=== PATIENT | female | born 1950 | race Caucasian/White ===

== ENCOUNTER → 2021-01-18 06:54 | Outpatient (CLI) | payer MEDICARE, BC, SELFPAY | PROVIDERS: PCP Family Medicine; Referring Provider Internal Medicine Critical Care Medicine; Visit Provider Internal Medicine Critical Care Medicine | DX: R91.1 Solitary pulmonary nodule (principal) ==

== ENCOUNTER → 2021-01-19 08:11 | Outpatient (CLI) | payer MEDICARE, BC, SELFPAY ==
--- NOTE | 2021-01-19 08:13 | US_ITS ---
STUDY: THYROID ULTRASOUND REASON FOR EXAM: Female, 70 years old. NODULE TECHNIQUE: Ultrasound evaluation of the thyroid was performed with real-time and static moulton-scale imaging. COMPARISON: None. FINDINGS: RIGHT LOBE: The right lobe of the thyroid gland is enlarged and measures 5.4 cm x 2 cm x 1.3 cm. There is a heterogeneous echotexture. There are multiple hypoechoic and isoechoic solid nodules throughout the right lobe. The largest measures 1.8 cm x 1.5cm x 1.1 cm. This is in the mid pole. Biopsy is recommended. LEFT LOBE: The left lobe of the thyroid gland is enlarged and measures 5 cm x 2 cm x 1.2 cm. There is a heterogeneous echotexture. There are multiple solid and heterogeneous nodules within the left lobe. The largest measures 6 mm x 4 mm x 9 mm. This is in the mid medial aspect of the left lobe. ISTHMUS: The isthmus measures 3 mm. The regional lymph nodes are normal. US/Thyroid IMPRESSION: Enlargement of both lobes of the thyroid gland. Multiple nodules are seen in both lobes. A dominant nodule measuring 1.8 cm x 1.5 cm x 1.1 cm is seen in the right lobe. Biopsy is recommended. Electronically Signed: Robert Garber MD at 13:06 EDT , Service support ,
== END ==
DX: E04.1 Nontoxic single thyroid nodule (principal)
CPT/HCPCS: 76536

== ENCOUNTER → 2021-02-05 | Outpatient (CLI) | payer MEDICARE, BC, SELFPAY ==
--- NOTE | 2021-02-05 | FLU_PTH ---
PATIENT: HARLEY TRAORE LOC: [facility] U#:[id number] AGE/SX: 70/F ROOM: RE02/05/[address]: Dr. Juan Santoyo MD : 1950 BED: DIS: 02/05/2021 SPEC #: [id number] RECD: 02/05/21 12:29 STATUS: CECILE LU #: [id number] VILMA: 02/05/21 00:[address]: Juan Santoyo DEPT: CYTOLOGY RECD BY: Raj Alejandra ENTERED: 02/05/21 12:29 SP TYPE: Fluid OTHR DR: KEYLA Keene Tissues: A - Thyroid gland, NOS B - Thyroid gland, NOS Procedures: Special Stain Group II Surgery Specimen Level IV Cytospin Fluid HEADER OPERATION: Right thyroid fine needle aspiration PRE-OP DIAGNOSIS: Right thyroid nodule TISSUE SUBMITTED: A ? Right thyroid nodule fluid, B ? Right thyroid nodule x6 slides DIAGNOSIS CYTOLOGY A. Right thyroid nodule fluid, FNA (cytospin and cell block): Consistent with benign follicular nodule with cystic changes. B. Right thyroid nodule, FNA (smears): Consistent with benign follicular/colloid nodule. Adequate for evaluation. See comment. SHOBHA:eva 02/08/2021 COMMENT Correlation with clinical, radiologic findings and appropriate follow up are necessary. CYTOLOGY STUDY Slides are reviewed. CYTOLOGY GROSS A - Received is 1 ml of red bloody cloudy fluid labeled with the patient's name and and designated per the requisition as right thyroid nodule. Submitted for cytology preparation including cell block. B - Received are six smears labeled with the patient's name and designated per the requisition as right thyroid nodule. Submitted for staining. / eva 02/05/2021 TC:3 CPT: 41200, 25039, 78797
== END | disposition home or self-care (01) ==
LOC: LABSPEC 11:18
PROVIDERS: PCP Physician Assistant; Visit Provider Surgery
DX: E04.1 Nontoxic single thyroid nodule (principal)
CPT/HCPCS: 88108; 88305; 88313

== ENCOUNTER → 2021-02-24 09:32 | Outpatient (CLI) | payer MEDICARE, BC, SELFPAY ==
--- NOTE | 2021-02-25 13:10 | PFT ---
INTRODUCTION: The patient is a 70-year-old female that presents for pulmonary function studies secondary to a diagnosis of dyspnea. Respiratory therapy reported good patient effort. Bronchodilators were used during testing. INTERPRETATION: Forced expiration spirometry demonstrates the presence of a moderate large airways obstructive ventilatory defect. There was no significant response to aerosolized bronchodilators. Spirograms are of good quality but do not plateau indicating slow emptying of the lungs. Body plethysmography was performed and reveals lung volumes to be within normal limits. Diffusing capacity by single breath CO is also within normal limits. IMPRESSION: Irreversible moderate large airways obstructive ventilatory defect with preserved lung volumes and diffusing capacity.
== END ==
PROVIDERS: PCP Physician Assistant; Referring Provider Internal Medicine Critical Care Medicine; Visit Provider Internal Medicine Critical Care Medicine
DX: R06.00 Dyspnea, unspecified (principal)
CPT/HCPCS: 94060; 94726; 94729

== ENCOUNTER → 2021-02-25 12:38 | Outpatient (CLI) | payer MEDICARE, BC, SELFPAY ==
[2021-02-25 12:45] VITALS: PULSE 63; PULSE 74; PULSE 79; PULSE 84; PULSE 85; PULSE 87; PULSE 88; O2SAT 97; O2SAT 98; O2SAT 99
--- NOTE | 2021-02-26 10:13 | PCM.PSN.6M ---
PSN 6 Minute Walk Test 6 Minute Walk Test 6 Minute Walk Test: 6 Minute Walk Test PSN:6-Minute Walk Test Start: 02/25/21 13:08 Freq: Status: Active Protocol: RESP.6MINW Document 02/25/21 12:45 DAVID (Rec: 02/25/21 13:12 JLA [id number]) 6 Minute Walk Test Date Performed 02/25/21 Time Performed 12:45 Height 5 ft 7 in Weight: 60.328 kg Weight in Pounds 133.[address]: Eran Da Silva Assistive device used: None Pre-test Oxygen Delivery Method Room Air Pulse Ox (%) 97 Pulse Rate (60-100 beats/min) 63 Dyspnea Ellen Scale (0-10) 0 Exertion Ellen Scale (6-20) 6 1st minute Oxygen Delivery Method Room Air Pulse Ox (%) 98 Pulse Rate (60-100 beats/min) 79 2nd minute Oxygen Delivery Method Room Air Pulse Ox (%) 97 Pulse Rate (60-100 beats/min) 87 3rd minute Oxygen Delivery Method Room Air Pulse Ox (%) 97 Pulse Rate (60-100 beats/min) 85 4th minute Oxygen Delivery Method Room Air Pulse Ox (%) 98 Pulse Rate (60-100 beats/min) 84 5th minute Oxygen Delivery Method Room Air Pulse Ox (%) 98 Pulse Rate (60-100 beats/min) 88 6th minute Oxygen Delivery Method Room Air Pulse Ox (%) 99 Pulse Rate (60-100 beats/min) 88 Dyspnea Ellen Scale (0-10) 0.5 Exertion Ellen Scale (6-20) 11 Post-test Oxygen Delivery Method Room Air Pulse Ox (%) 97 Pulse Rate (60-100 beats/min) 74 Full Laps Walked 24 Partial Lap, Number of Tiles Walked 10 Total Distance Walked (ft) 1426 Interpretation Interpretation: The patient ambulated 1426 feet over the course of 6 minutes beginning on room air without assistive devices. Pretesting oxygen saturation was noted to be 97% on room air. With ambulation, the jayy oxygen saturation was 97%. There was no significant exertional oxygen desaturation. Recommendations Recommendations: There is no indication for the use of supplemental oxygen at this time.
== END ==
PROVIDERS: PCP Physician Assistant; Referring Provider Internal Medicine Critical Care Medicine; Visit Provider Internal Medicine Critical Care Medicine
DX: R06.00 Dyspnea, unspecified (principal)
CPT/HCPCS: 94618

== ENCOUNTER 2021-04-19 07:01 | Outpatient (CLI) | payer MEDICARE, BC, SELFPAY ==
--- NOTE | 2021-04-19 07:08 | CT_ITS ---
STUDY: CT CHEST WITHOUT CONTRAST REASON FOR EXAM: Female, 70 years old. Follow up 6x7mm right apex nodule - 3 mo RADIATION DOSAGE (If Supplied By Facility): CTDIvol = ( 6.63 ) mGy, DLP = ( 233.70 ) mGycm TECHNIQUE: Transaxial imaging was performed without the administration of intravenous contrast material. Multiplanar coronal and sagittal images were reformatted. Individualized dose optimization techniques were used for this CT. COMPARISON: None. FINDINGS: Hyperinflation. Mild degree of emphysematous changes more prominent in the upper lobes. Stable 7 mm nodule in the peripheral posterior lateral aspect of the right lung apex. This most likely represents a focal area of scarring. A 6 month follow-up examination is recommended. There is no demonstrated pleural abnormality. There are calcifications of the coronary arteries. There are multiple small lymph nodes within the mediastinum, which are normal in size and morphology most compatible with reactive lymph hyperplasia. Normal hilar regions. Normal unenhanced pulmonary arteries. Normal aorta arch and descending thoracic aorta. There are multi-level degenerative changes of the thoracic spine. There is no demonstrated abnormality of the visualized upper abdomen. CT/Chest without Contrast IMPRESSION: Stable 7 mm nodule in the peripheral posterior lateral aspect of the right lung apex. A six-month follow-up examination is recommended. Electronically Signed: Robert Garber MD at 10:18 EST , Service support ,
== END 2021-04-19 23:59 | disposition short-term general hospital (02) ==
LOC: CT 07:04
PROVIDERS: PCP Physician Assistant; Referring Provider Internal Medicine Critical Care Medicine; Visit Provider Internal Medicine Critical Care Medicine
DX: R91.1 Solitary pulmonary nodule (principal)
CPT/HCPCS: 71250

== ENCOUNTER 2021-06-07 14:38 | Outpatient (CLI) | payer MEDICARE, BC, SELFPAY ==
[2021-06-07 15:45] LABS: Absolute Lymphocyte Count 2.12 X10^3/uL (0.83-4.51); Absolute Neutrophil Count 3.9 X10^3/uL (2.0-7.7); Basophil# 0.05 X10^3/uL; Basophil% 0.8 % (0-1); Eosinophil# 0.06 X10^3/uL; Eosinophils% 0.9 % (0-5); Hematocrit 44.9 % (37-47); Hemoglobin 14.4 g/dL (12.0-15.0); Lymphocyte # 2.12 X10^3/ul (0.83-4.51); Lymphocyte % 32.8 % (19-41); Mean Corp Hgb Conc 32.1 g/dL (32-36); Mean Corpuscular Hgb 29.7 pg (27.0-32.0); Mean Corpuscular Volume 92.6 fL (81-99); Monocyte# 0.28 X10^3/uL; Monocyte% 4.3 % (0-10); NRBC Flagged by Analyzer 0 % (0-5); Neutrophil # 3.93 X10^3/uL (2.7-7.7); Neutrophil % 60.9 % (47-70); Platelet Count 196 K/mm3 (150-450); RBC Distribution Width CV 13.7 % (11.6-14.6); RBC Distribution Width SD 46.6 fl (35.1-43.9); Red Blood Count 4.85 M/mm3 (4.2-5.4); White Blood Count 6.5 K/mm3 (4.4-11.0)
[2021-06-07 16:46] LABS: Vitamin D,25 Hydroxy 49.6 ng/mL
[2021-06-07 16:57] LABS: ALB/GLOB Ratio 1.1 RATIO (0.9-2.4); AST(SGOT) 12 U/L (15-37); Alanine Aminotransfer ALT/SGPT 13 U/L (13-56); Albumin, Serum 3.9 g/dL (3.2-5.0); Alkaline Phosphatase 57 U/L (45-117); Anion Gap 4 (5-15); BUN 10 mg/dL (7-18); BUN/Creat Ratio 12.4 RATIO (10-20); Calcium,Total 8.9 mg/dL (8.5-10.1); Chloride 108 mmol/L (98-107); Cholesterol 194 mg/dL (200); Creatinine, Serum 0.81 mg/dL (0.55-1.02); EST Glomerular Filtration Rate 74 mL/min (>60); Est Glom Filt Rate - Afr Amer 90 mL/min (>60); Globulin 3.5 g/dL (2.2-4.2); Glucose 95 mg/dL (74-106); High Density Lipoprotein 65 mg/dL; Potassium 3.8 mmol/L (3.5-5.1); Protein, Total 7.4 g/dL (6.4-8.2); Sodium Level 141 mmol/L (136-145); Triglycerides 126 mg/dL; Very Low Density Lipoprotein 25 mg/dL (5-40)
== END 2021-06-07 23:59 | disposition home or self-care (01) ==
LOC: BIMLAB 14:39
PROVIDERS: PCP Internal Medicine; Referring Provider Internal Medicine; Visit Provider Internal Medicine
DX: E78.5 Hyperlipidemia, unspecified (principal); M81.0 Age-related osteoporosis without current pathological fracture
CPT/HCPCS: 36415; 80053; 80061; 82306; 85025

== ENCOUNTER 2021-06-22 10:20 | Outpatient (CLI) | payer MEDICARE, BC, SELFPAY ==
--- NOTE | 2021-06-22 10:22 | BI_ITS ---
MAMMOGRAPHY - BILATERAL SCREENING REASON FOR EXAM: Female, 70 years old. Routine annual screening examination. PERTINENT HISTORY: Non-contributory. TECHNIQUE: Digital bilateral breast pamela (3D mammographic acquisition) in the CC and MLO projections. 2-D mediolateral oblique (MLO) and craniocaudad (CC) views of both breasts were obtained. CAD: Full Field Digital Mammography with Computer Added Detection was performed. COMPARISON: None. Baseline examination. FINDINGS: Breast Composition: There are scattered areas of fibroglandular density. There is a 4.7 mm x 6 mm nodule in the deep central slightly lateral aspect of the right breast. Correlation with ultrasound is recommended. No other significant abnormalities are identified. BI/SCRN MAMM (CAD)W/PAMELA BILAT IMPRESSION: 4.7 mm x 6 mm well-defined nodule in the deep central slightly lateral aspect of the left breast. Correlation with ultrasound is recommended. ASSESSMENT CATEGORY: BIRADS Category 0: Incomplete. Need additional imaging evaluation. A letter regarding these results will be sent to the patient by the facility within 30 days. Approximately 10% of breast cancers are not detected by mammography. A normal mammogram should not delay biopsy of a clinically suspicious abnormality. [id number] Electronically Signed: Robert Garber MD at 11:31 EDT ,
--- NOTE | 2021-06-22 10:27 | BD_ITS ---
STUDY: DUAL ENERGY X-RAY ABSORPTIOMETRY / DXA REASON FOR EXAM: Female, 70 years old. Osteoporosis TECHNIQUE: Bone Mineral Density (BMD) measurements of lumbar spine and bilateral hips were obtained. COMPARISON: None. FINDINGS: Lumbar Spine (L1-L4): g/cm2 (0.766) / T-score (-2.6) / Z-score (-0.3) Findings are suggestive of osteoporosis with a high fracture risk. Left Femur Total: g/cm2 (0.630) / T-score (-2.6) / Z-score (-0.9) Left Femoral Neck: g/cm2 (0.461) / T-score (-3.5) / Z-score (-1.5) Right Femur Total: g/cm2 (0.614) / T-score (-2.7) / Z-score (-1.0) Right Femoral Neck: g/cm2 (0.499) / T-score (-3.2) / Z-score (-1.2) BD/Dexa Bone Density Study IMPRESSION: The patient is considered osteoporotic as outlined below according to World Sridhar Organization (WHO) criteria with a high fracture risk. Reference Information: The T-score is the number of standard deviations above or below the standard which is normal for young adults at their peak bone mineral density. The World Health Organization (WHO) interprets the T-scores as follows: Above -1 Normal bone density Between -1 and -2.5 Osteopenia Equal to / or below -2.5 Osteoporosis As a practical clinical guideline, osteopenia may be graded as follows: Mild -1 through -1.5 Moderate -1.6 through -2.0 Severe -2.1 through -2.4 The Z-score is the number of standard deviations above or below age-matched controls. A Z-score of less than -1.5 would be considered abnormal. References: 1. NIH Osteoporosis and Related Bone Diseases www osteo.org 2. International Society for Clinical Densitometry www iscd.org 3. National Osteoporosis Foundation www nof.org Electronically Signed: Robert Garber MD at 8:44 EDT ,
== END 2021-06-22 23:59 | disposition home or self-care (01) ==
LOC: OPBD 10:21
PROVIDERS: PCP Internal Medicine; Referring Provider Internal Medicine; Visit Provider Internal Medicine
DX: Z12.31 Encounter for screening mammogram for malignant neoplasm of breast (principal); M81.0 Age-related osteoporosis without current pathological fracture
CPT/HCPCS: 77063; 77067; 77080

== ENCOUNTER 2021-06-23 09:05 | Outpatient (CLI) | payer MEDICARE, BC, SELFPAY ==
--- NOTE | 2021-06-23 09:08 | US_ITS ---
STUDY: ULTRASOUND BREAST - LEFT REASON FOR EXAM: Female, 70 years old. Abnormal screening mammogram. TECHNIQUE: Axial and longitudinal images of the LEFT breast were performed with a high resolution ultrasound transducer. # OF IMAGES: 41 COMPARISON: Comparison is made with prior mammogram dated 06/22/2021. FINDINGS: LEFT Breast: The upper lateral aspect of the left breast was examined with ultrasound. There is evidence of dilated ducts. No mass lesion is seen. Routine mammographic follow-up is recommended. US/Breast Limited Unilateral IMPRESSION: Dilated ducts. Routine annual mammographic follow-up is recommended. ASSESSMENT CATEGORY: BIRADS Category 2: Benign. A letter regarding these results will be sent to the patient by the facility within 30 days. Electronically Signed: Robert Garber MD at 9:42 EDT ,
== END 2021-06-23 23:59 | disposition home or self-care (01) ==
LOC: OPUS 09:06
PROVIDERS: PCP Internal Medicine; Visit Provider Internal Medicine
DX: N63.10 Unspecified lump in the right breast, unspecified quadrant (principal); R92.8 Other abnormal and inconclusive findings on diagnostic imaging of breast
CPT/HCPCS: 76642

== ENCOUNTER → 2021-09-24 | Outpatient (CLI) | payer MEDICARE, BC, SELFPAY ==
--- NOTE | 2021-09-24 07:54 | CT_ITS ---
STUDY: CT CHEST WITHOUT CONTRAST REASON FOR EXAM: Female, 71 years old. Follow 7 mm nodule in smoker RADIATION DOSAGE (If Supplied By Facility): CTDIvol = ( 7.75 ) mGy, DLP = ( 294.49 ) mGycm TECHNIQUE: Transaxial imaging was performed without the administration of intravenous contrast material. Multiplanar coronal and sagittal images were reformatted. Individualized dose optimization techniques were used for this CT. COMPARISON: Comparison is made with prior examination dated 04/19/2021. FINDINGS: CHEST Heterogeneous appearance of the lower pole of the right lobe of the thyroid gland suggestive of a colloid cyst. Hyperinflation. Mild degree of emphysematous changes more prominent in the upper lobes. Stable 7 mm nodule in the peripheral posterolateral aspect of the right lung apex as seen on axial image #14. This most likely represents a focal area of scarring. There is no demonstrated pleural abnormality. There are calcifications of the coronary arteries. There are multiple small lymph nodes within the mediastinum, which are normal in size and morphology most compatible with reactive lymph hyperplasia. Normal hilar regions. Normal unenhanced pulmonary arteries. There is atherosclerotic calcification of the aortic arch. There are degenerative changes of the thoracic spine. 1.2 cm cyst in the midportion of the right kidney. CT/Chest without Contrast IMPRESSION: Stable examination. Electronically Signed: Robert Garber MD at 12:15 EDT ,
== END | disposition home or self-care (01) ==
LOC: CT 07:54
PROVIDERS: PCP Internal Medicine; Referring Provider Nurse Practitioner Acute Care; Visit Provider Nurse Practitioner Acute Care
DX: I25.10 Atherosclerotic heart disease of native coronary artery without angina pectoris (principal); I70.0 Atherosclerosis of aorta; R91.1 Solitary pulmonary nodule; N28.1 Cyst of kidney, acquired
CPT/HCPCS: 71250

== ENCOUNTER → 2021-10-04 | Outpatient (CLI) | payer MEDICARE, BC, SELFPAY ==
[2021-10-04 12:29] LABS: Anion Gap 6 (5-15); BUN 9 mg/dL (7-18); BUN/Creat Ratio 9.7 RATIO (10-20); Calcium,Total 9.2 mg/dL (8.5-10.1); Chloride 109 mmol/L (98-107); Creatinine, Serum 0.93 mg/dL (0.55-1.02); EST Glomerular Filtration Rate 63 mL/min (>60); Est Glom Filt Rate - Afr Amer 76 mL/min (>60); Glucose 104 mg/dL (74-106); Potassium 4.1 mmol/L (3.5-5.1); Sodium Level 143 mmol/L (136-145)
== END | disposition home or self-care (01) ==
LOC: BIMLAB 11:11
PROVIDERS: PCP Internal Medicine; Referring Provider Internal Medicine; Visit Provider Internal Medicine
DX: M81.0 Age-related osteoporosis without current pathological fracture (principal)
CPT/HCPCS: 36415; 80048

== ENCOUNTER 2022-02-15 08:57 | Day surgery (SDC) | payer MEDICARE, OTHER, BC, SELFPAY ==
[2022-02-15] MEDS: Lactated Ringers 1,000 ML 15 ML IV (09:15)
[2022-02-15 09:30] VITALS: BP 132/75; PULSE 61; RESP 17; TEMP 36.6; O2SAT 97; BMI 20.2
--- NOTE | 2022-02-15 10:24 | PCM.HP.BLA ---
History and Physical Date of Admission: 02/15/22 [facility] [address] [place] [address] OFFICE VISIT Date of Service:? 01/31/22 MR#: [id number] Acct: [id number] Name:HARLEY MERCEDES Rep #: [id number] : 1950 ? ? Provider: Dr. Enio Dickson, DO Age/Sex:? 71/F ? ? Location: [facility] [place] Status: Signed Intake Intake Visit Reasons:?Right hand Is patient in pain?: Yes Allergies No Known Allergies Allergy (Verified 01/31/22 09:30) Medications ascorbic acid (vitamin C) 500 mg tablet,extended release 500 mg PO DAILY 06/07/21 [History Confirmed 01/31/22] cholecalciferol (vitamin D3) 125 mcg (5,000 unit) capsule 125 mcg PO DAILY 06/07/21 [History Confirmed 01/31/22] nicotine 14 mg/24 hr daily transdermal patch 1 patch transdermal Q24H #28 ea 06/07/21 [Rx Confirmed 01/31/22] pravastatin 20 mg tablet 20 mg PO QHS #90 tabs 06/07/21 [Rx Confirmed 01/31/22] zinc acetate 50 mg (zinc) capsule (Galzin) 50 mg PO DAILY 06/07/21 [History Confirmed 01/31/22] denosumab 60 mg/mL subcutaneous syringe (Prolia) 60 mg subcut [id number] #1 mL 10/04/21 [Rx Confirmed 01/31/22] PFSH Medical History?(Updated 11/17/21 @ 09:[address] Eran Da Silva MD) Abnormal mammogram of left breast Chest pain Colitis GERD (gastroesophageal reflux disease) Hand pain Hyperglycemia Hyperlipidemia Lumbar disc narrowing Midline cystocele Osteopenia Osteoporosis Pulmonary nodule Renal cyst Sacroiliitis Situational depression Tobacco abuse counseling Trigger finger of right hand Surgical History? History of rectal surgery S/P colectomy Family History? Father COPD (chronic obstructive pulmonary disease)Mother Myocardial infarctionSister Cancer ?? ? LungBrother Cancer ?? ? Throat Social History? Smoking Status:? Current every day smoker tobacco type: cigarettes alcohol intake:? never HPI Right hand Details: Parts of this documentation were recorded by a scribe, this documentation accurately reflects the service provided and the decisions made by me, Dr. Enio Dickson, DO 01/31/22 0925. HARLEY TRAORE is a 71 year old F here today for right hand pain. She had a right ring finger trigger injection on 06/16/21 which was helpful until the end of November. She states that she has locking. She complains of an achiness into her entire right ring finger. She complains of soreness into her hand. She has had 2 injections already. Patient denies any numbness or tingling. Ortho Exam General General: Yes no acute distress Neurologic: Yes alert and Yes oriented x3 Psychologic: Yes reasonable and appropriate Right Wrist/Hand WRIST: birthmark on ring finger and area of A1 maryam, hypertrophied ttp A1 maryam, no locking today Coding Level of Care Code Off vis,est,level 3 Diagnoses Trigger finger, right ring finger? M65.341 Assessment and Plan Assessment and Plan (1) Trigger finger, right ring finger: ?Status:?Acute Plan Spoke with the patient about the significant risk of having 3 injections into her finger. Spoke with her about the risk of tendon rupture. Explained that she may have a trigger finger release instead. She will have restrictions post op for 3 weeks. She would like to proceed with surgery on 02/15/22. Patient should not take any NSAIDs 7 days prior to surgery.? Follow up 2 week post op or sooner if pain, swelling, numbness or associated symptoms, or concerns develop.? All questions answered. Patient in agreement of plan. 01/31/22 1000 <Electronically signed by Enio Dickson DO> Date Enio Dickson DO Cosigner Signature: Date (if applicable) ? CC: ? ~ I have examined the patient and the H&P has been reviewed. There are no clinical changes since date of exam.
[2022-02-15] MEDS: Cefazolin 2 GM in 0.9% Normal Saline 100 ML IV (10:27)
[2022-02-15] MEDS: Lidocaine 2% /Epi 1:100 (20ml) 20 ML VIAL (10:49)
[2022-02-15 11:00] VITALS: BP 107/58; BP 132/75; PULSE 68; RESP 16; TEMP 36.6; O2SAT 100
--- NOTE | 2022-02-15 11:00 | PCM.OP.BLANK ---
Operative Report Date of Procedure: 02/15/22 Preoperative diagnosis; right fourth digit trigger finger Postoperative diagnosis; same Procedure: Right fourth digit A1 maryam release Anesthesia: Local with MAC Tourniquet time; 10 minutes 250 mm Hg Complications: None Indication for procedure; This is a 71-year-old female with symptoms consistent with trigger finger. Risks benefits and alternatives were reviewed including risks of bleeding infection nerve tendon tissue damage need for further surgery and continued pain and symptoms, hypersensitivity to scar/incision and recurrence. Procedure; The patient was met in the preoperative holding area the operative extremity was identified by both patient and physician and was marked the patient was met by anesthesia and brought back to the operating room and transferred to the operating table in the supine position. Aanesthesia was started. A well-padded tourniquet was placed on the operative upper extremity. The patient was prepped and draped in the usual sterile fashion. A timeout was called to ensure the proper patient procedure and extremity were being contemplated. 0.5 percent Marcaine was injected into the incisional area. Esmarch was used tourniquet was inflated. 15 blade scalpel was used to make a longitudinal incision directly over the A1 maryam was carried down through the subcutaneous tissue Jeanne retractors placed radial and ulnar protecting the digital nerves and a Ragnell retractor was used at the apex of the incision under direct visualization a deep blade scalpel was used to release the A1 maryam. The wound was thoroughly irrigated and closed with 4-0 nylon vertical mattress edges. Dressing was applied in the form of Xeroform 4 x 4 web roll and an Ramakrishna wrap. Patient tolerated the procedure well was brought back to the PACU in stable condition.
--- NOTE | 2022-02-15 11:02 | DCINST_ITS ---
Discharge Instructions Dressing / Incision Call your doctor if you observe: Shortness of breath and Chest pain Additional Dressing/Incision Instructions:: Ice and elevate operative extremity next 72 hours. Keep dressing on clean and dry for 48 hours then may remove and allow warm soapy water to rinse over incision but do not submerge until sutures are out. Then apply bandaid over incision and change daily. encourage finger range of motion. Not lift more than 1/2 pound. Minimize narcotic use only as needed and directed, may use OTC NSAID and Tylenol to supplement/substitute for pain control. Follow Up Care Please Follow Up With: Enio Dickson DO When: 2 weeks Test Results: Test results from this visit will be discussed in further detail at your follow- up appointment, if applicable. Discharge Plan Admission Primary Reason for Your Visit: Right ring trigger finger Attending Provider: Enio Dickson Primary Care Provider: Emily Hoang Discharge Orders/Prescriptions Prescriptions: New hydrocodone-acetaminophen 5-325 mg tablet 1 tab PO Q4H PRN (Reason: pain) 2 Days Qty: 7 0RF No Action cholecalciferol (vitamin D3) 125 mcg (5,000 unit) capsule 125 mcg PO DAILY Galzin 50 mg (zinc) capsule 50 mg PO MOWEFR pravastatin 20 mg tablet 20 mg PO QHS Qty: 90 3RF Referrals / Follow Up: Emily Hoang MD [Primary Care Provider] - Disposition Disposition (needs filled in before D/C Order can be placed): Home, Self Care
[2022-02-15 11:05] VITALS: BP 107/59; BP 132/75; PULSE 63; RESP 16; O2SAT 100
[2022-02-15 11:10] VITALS: BP 122/58; BP 132/75; PULSE 57; RESP 16; O2SAT 100
[2022-02-15 11:15] VITALS: BP 112/56; BP 132/75; PULSE 56; RESP 16; TEMP 36.3; O2SAT 100
[2022-02-15 12:22] VITALS: BP 119/47; BP 132/75; PULSE 54; RESP 14; TEMP 36.3; O2SAT 99
== END 2022-02-15 12:31 | disposition home or self-care (01) ==
LOC: SDC 08:59 → AC 08:59
PROVIDERS: PCP Internal Medicine; Referring Provider Orthopaedic Surgery; Visit Provider Orthopaedic Surgery
PROC: (CPT 26055; principal; 2022-02-15 10:50)
DX: M65.341 Trigger finger, right ring finger (principal); E78.5 Hyperlipidemia, unspecified; K21.9 Gastro-esophageal reflux disease without esophagitis; F17.210 Nicotine dependence, cigarettes, uncomplicated; Z79.899 Other long term (current) drug therapy
CPT/HCPCS: 26055; J7120

== ENCOUNTER → 2022-10-06 | Outpatient (CLI) | payer MEDICARE, BC, SELFPAY ==
--- NOTE | 2022-10-07 09:17 | PFT ---
INTRODUCTION: The patient is a 72-year-old female who presents for pulmonary function studies secondary to a diagnosis of COPD. Respiratory therapy reported good patient effort. Bronchodilators were used during testing. INTERPRETATION: Forced expiration spirometry demonstrates the presence of a mild large airways obstructive ventilatory defect. There was no significant response to aerosolized bronchodilators. Spirograms are of good quality and plateau gradually indicating slow emptying of the lungs. Body plethysmography was performed and revealed lung volumes to be within normal limits. Diffusing capacity by single breath CO was also within normal limits. IMPRESSION: Irreversible mild large airways obstructive ventilatory defect with preserved lung volumes and diffusing capacity.
== END | disposition home or self-care (01) ==
LOC: PSN 07:36
PROVIDERS: PCP Internal Medicine; Referring Provider Internal Medicine Critical Care Medicine; Visit Provider Internal Medicine Critical Care Medicine
DX: J44.9 Chronic obstructive pulmonary disease, unspecified (principal)
CPT/HCPCS: 94060; 94726; 94729

== ENCOUNTER → 2022-10-21 | Outpatient (CLI) | payer MEDICARE, BC, SELFPAY ==
--- NOTE | 2022-10-21 16:35 | CT_ITS ---
EXAM: CT CHEST WITHOUT INTRAVENOUS CONTRAST CLINICAL INDICATION: smoker TECHNIQUE: Helically acquired images were obtained of the chest without intravenous contrast. This CT exam was performed using one or more of the following dose reduction techniques: automated exposure control, adjustment of the mA and/or kV according to patient size, and/or use of iterative reconstruction technique. RADIATION DOSE: CTDIvol = 2.01 mGy, DLP = 69.72 mGy-cm COMPARISON: CT chest 09/24/2021 FINDINGS: LUNGS AND PLEURAL SPACES: There is a stable 7 mm nodule in the right lung apex which may indicate scarring. Mild emphysematous changes. No pleural effusion or thickening. No pneumothorax. HEART: Coronary artery calcifications. Heart size is normal. No pericardial effusion. MEDIASTINUM: Unremarkable. No mediastinal or hilar adenopathy. Esophagus is unremarkable. No hiatal hernia. THYROID: Unremarkable. No thyroid lesions. BONES/JOINTS: Degenerative changes of the spine. No suspicious lytic or blastic abnormality. VASCULATURE: See above. CT/Low Dose CT Lung Screening IMPRESSION: 1. There is a stable 7 mm nodule in the right lung apex which may indicate scarring. 2. Mild emphysematous changes. ACR Lung CT Screening Reporting And Data System (Lung-RADS) score: 2 - Benign Appearance or Behavior. Recommend continued annual screening with a low-dose CT (LDCT) in 12 months. Electronically Signed: Robin Orellana MD at 16:06 EDT ,
== END | disposition home or self-care (01) ==
LOC: CT 16:32
PROVIDERS: PCP Internal Medicine; Referring Provider Nurse Practitioner Acute Care; Visit Provider Nurse Practitioner Acute Care
DX: F17.210 Nicotine dependence, cigarettes, uncomplicated (principal)
CPT/HCPCS: 71271

== ENCOUNTER 2023-01-11 14:48 | Emergency (ER) | payer MEDICARE, BC, SELFPAY ==
[2023-01-11 14:49] VITALS: BP 133/97; PULSE 100; RESP 16; TEMP 37.1; O2SAT 97; BMI 20.5
--- NOTE | 2023-01-11 15:56 | EKG12_ITS ---
Test Reason : Blood Pressure : / mmHG Vent. Rate : 075 BPM Atrial Rate : 075 BPM P-R Int : 186 ms QRS Dur : 074 ms QT Int : 370 ms P-R-T Axes : 082 -40 071 degrees QTc Int : 413 ms Normal sinus rhythm Left axis deviation Abnormal ECG Confirmed by KRISTAN SEGURA, ELIOT ([id number]), make up editor JOSE NAVARRO ([id number]) on 01/13/2023 7:14:36 AM Referred By: Confirmed By:ADEN RUSHING MD
--- NOTE | 2023-01-11 15:57 | CT_ITS ---
EXAM: CT chest with IV contrast. HISTORY: abdominal pain TECHNIQUE: Intravenous contrast was administered. A radiation dose optimization technique was used for this scan. COMPARISON: CT chest October 21, 2022. LIMITATIONS: None. LUNGS: Mild to moderate centrilobular emphysematous changes. 7 mm nodule in the right lung apex is grossly stable in size and may represent scarring as previously described. No confluent airspace disease. HEART: Normal. PLEURA: Normal. MEDIASTINUM: Normal. AORTA: Thoracic aorta is normal caliber. BONES/SOFT TISSUES: No acute fracture. OTHER: Few thyroid nodules. The largest measures 1.2 cm.. CONCLUSION: Emphysema. No acute pulmonary disease. EXAM: CT abdomen and pelvis with contrast. HISTORY: abdominal pain TECHNIQUE: CT Chest Abdomen And Pelvis W/ Contrast Injection. A radiation dose optimization technique was used for this scan. COMPARISON: None. LIMITATIONS: None. LIVER: Normal. GALLBLADDER: 1.2 cm gallstone. No inflammatory change. BILE DUCTS: Normal. PANCREAS: Normal. SPLEEN: Normal. ADRENAL GLANDS: Normal. KIDNEYS/URETERS/BLADDER: Cyst in the right kidney. No hydronephrosis. AORTA: Atherosclerotic calcification of the abdominal aorta. Retroperitoneal lymph nodes are borderline enlarged. BOWEL/MESENTERY: Postsurgical changes after colectomy. Ileostomy in the right lower quadrant. No small bowel obstruction. APPENDIX: Normal. PERITONEUM: Normal. REPRODUCTIVE ORGANS: Normal. BONES/SOFT TISSUES: Multilevel mild compression deformity in the lumbar spine. OTHER: None. CONCLUSION: Postsurgical changes. No small bowel obstruction. Gallstone. Electronically Signed: Tigre Silverio MD at 18:40 EDT , CT/CT Chest, Abd, Pel w/Contrast IMPRESSION: undefined
--- NOTE | 2023-01-11 16:03 | EDS_ITS ---
HPI HPI - GI History of Present Illness Chief Complaint: Foreign Body Narrative Narrative: 72-year-old female presenting for evaluation. Apparently on Monday she swallowed a large calcium pill which she felt got stuck in the lower part of her neck. She started to have burning sensation in this area and it slowly settled into the chest down in her esophageal region. She describes it as burning as well. Denies a chest pressure or sharp pruritic pain. She states he is not short of breath or lightheaded. Patient states she is now having some pain in her lower abdomen around her right lower quadrant ostomy site. She states she has a history of colitis in the past. 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 She states the doctor who did the surgery did not tell her what kind of colitis it was. She states he told her that there were many kinds of colitis. Eventually she went back and had her rectum removed. He denies any fevers or chills. She is complaining of lower abdominal pain around her ostomy site. PFSH [facility] Medical History Abnormal mammogram of left breast Back pain Chest pain Colitis GERD (gastroesophageal reflux disease) Hand pain High cholesterol History of stress test Hyperglycemia Hyperlipidemia Injury of back Lumbar disc narrowing Midline cystocele Osteopenia Osteoporosis Post-menopausal Pulmonary nodule Renal cyst Sacroiliitis Situational depression Smoker Tobacco abuse counseling Trigger finger of right hand Wears dentures Wears glasses Home Medications cholecalciferol (vitamin D3) 125 mcg (5,000 unit) capsule 125 mcg PO DAILY 06/07/21 [History Last Taken Unknown] zinc acetate 50 mg (zinc) capsule (Galzin) 50 mg PO MOWEFR 06/07/21 [History Last Taken Unknown] clotrimazole-betamethasone 1 %-0.05 % topical cream 1 applic topical BID #15 grams 03/03/22 [Rx Last Taken Unknown] ostomy supplies (Skin Prep Wipes) #50 ea 03/03/22 [Rx Last Taken Unknown] pravastatin 20 mg tablet 20 mg PO QHS #90 tabs 07/28/22 [Rx Last Taken Unknown] sucralfate 100 mg/mL oral suspension (Carafate) 10 ml PO BID PRN epigastric pain/dyspepsia #400 mL 01/11/23 [Rx Last Taken Unknown] Allergy/AdvReac Type Severity Reaction Status Date / Time No Known Allergies Allergy Verified 01/11/23 14:51 Family History Father COPD (chronic obstructive pulmonary disease) Mother Myocardial infarction Sister Cancer Lung Brother Cancer Throat Surgical History History of hand surgery History of rectal surgery Hx of colonoscopy S/P colectomy Social History Smoking Status: Current every day smoker tobacco type: cigarettes alcohol intake: never ROS ROS ED Constitutional Constitutional ED: Denies chills, fever(s) or sweats Eyes Eyes: Denies blurry vision or change in vision ENT ENT ED: Denies ear pain or sore throat Cardiovascular Cardiovascular: Reports chest pain; Denies palpitations or racing heartbeat Respiratory/Chest Respiratory/Chest: Denies cough, dyspnea or sputum Gastrointestinal Gastrointestinal: Reports abdominal pain; Denies constipation, diarrhea, nausea or vomiting Genitourinary Genitourinary ED: Denies dysuria, hematuria or urinary frequency Musculoskeletal Musculoskeletal: Denies arthralgias, myalgias or neck pain Integumentary Denies abscess, Abrasions or rash Neurologic Neurologic: Denies headache(s), paresthesias or weakness Psychiatric Psychiatric: Denies anxiety, depression, suicidal ideation or suicidal thoughts Endocrine Endocrinology: Denies polydipsia or polyuria EXAM Physical Exam Const Vital Signs: 01/11/23 14:49 01/11/23 15:24 01/11/23 20:03 Temperature 98.7 F Temperature Source Temporal Pulse Rate 100 82 Respiratory Rate 16 18 Respiratory Effort Normal Respiratory Pattern Normal Blood Pressure 133/97 H Blood Pressure Mean 109 Pulse Ox 97 100 Oxygen Delivery Method Room Air Positive well nourished General Appearance ED: NAD HEENT Reports moist mucous membranes normocephalic and atraumatic Eyes PERRL and EOMs intact bilaterally Neck no lymphadenopathy Resp normal respiratory effort and clear to auscultation bilaterally Cardio regular rate and regular rhythm GI GI Narrative: Tenderness to palpation in the right lower quadrant around ostomy site. Ostomy appears normal. There is stool in the ostomy bag. Inspection: Negative for abdominal distention Back/Spine no CVA tenderness Extremity full ROM Neuro CN's II-XII intact bilaterally, moves all extremities and no sensory deficits noted Sensorium / Orientation: alert, oriented to person, oriented to place and oriented to time Motor Exam: strength 5/5 throughout Psych mental status grossly normal Skin no wounds MDM MDM MDM Narrative Medical decision making narrative: Patient presenting for evaluation of pain which she states is starting in her lower neck and down into her esophagus and now is radiating to the right lower quadrant where her ostomy is. Is unlikely to be related to the calcium pill at this point as this was 4 days ago. I would think this is resolved. Differential includes acute coronary syndrome, pneumonia, globus hystericus, gastritis, GERD, colitis, obstruction, dehydration, electrolyte maladies, anemia. CBC will be obtained to assess white blood cell count, hemoglobin, platelets. CMP to assess liver function, renal function, electrolytes. Lipase to assess for pancreatitis. Urinalysis to assess for UTI. High-sensitivity troponin and EKG to assess for ischemia/dysrhythmia. We will obtain a CT of the chest abdomen pelvis with oral contrast for the abdominal portion. CBC showed a leukocytosis of 9.4. Hemoglobin stable at 13.5. Platelets are normal at 163. Renal function and electrolytes unremarkable. LFTs are normal with exception of a bilirubin of 1.3 which is nonspecific. Lipase negative. EKG on my interpretation shows a normal sinus rhythm with a ventricular rate of 75 bpm without sign of ischemic change or dysrhythmia high-sensitivity troponin 6. Chest abdomen pelvis CT did not show anything acute. Patient counseled on findings. She still complaining of some burning in her esophagus. I do suspect she has some kind of esophageal narrowing given her history of difficulty swallowing. I recommended follow-up with GI likely upper endoscopy. I did put her on Carafate to help with her symptoms. I recommended chewing her food well and if she needs to break up her calcium pills to do so. Return precautions discussed. We discussed at length signs and symptoms of esophageal obstruction. Impression: 1. Chest pain 2. Abdominal pain 3. Esophageal narrowing Lab Data Attestation: I reviewed the patient's lab results. Labs: Laboratory Results - last 24 hr 01/11/23 16:15 WBC 9.4 RBC 4.81 Hgb 13.5 Hct 43.5 MCV 90.4 MCH 28.1 MCHC 31.0 L RDW Std Deviation 47.0 H RDW Coeff of Dean 14.1 Plt Count 163 MPV 10.8 Immature Gran % (Auto) 0.300 Neut % (Auto) 75.6 H Lymph % (Auto) 19.1 [place] % (Auto) 4.1 Eos % (Auto) 0.4 Baso % (Auto) 0.5 Absolute Neuts (auto) 7.1 Absolute Lymphs (auto) 1.79 Nucleated RBC % 0 Sodium 138 Potassium 3.7 Chloride 106 Carbon Dioxide 25.0 Anion Gap 7 BUN 10 Creatinine 0.91 Estim Creat Clear Calc 49.25 Est GFR (MDRD) Af Amer 78 Est GFR (MDRD) Non-Af 64 BUN/Creatinine Ratio 11.0 Glucose 103 Calcium 9.0 Total Bilirubin 1.30 H AST 12 L ALT 12 L Alkaline Phosphatase 60 Troponin I High Sens 6 Total Protein 7.3 Albumin 3.4 Globulin 3.9 Albumin/Globulin Ratio 0.9 Lipase 20 Radiography Diagnostic Testing: Clinical Impression(s) from Imaging Studies Chest/Abdomen/Pelvis CT 01/11/23 15:57 IMPRESSION: undefined Discharge Plan Triage Chief Complaint: Foreign Body ED Provider: Sean Henry Dx/Rx/DC Orders Instructions: ED Abdominal Pain Unkn Cause Fem, ED Chest Pain, Noncardiac, ED Esophageal Foreign Body, Resolved Prescriptions: New sucralfate [Carafate] 100 mg/mL suspension 10 ml PO BID PRN (Reason: epigastric pain/dyspepsia) Qty: 400 0RF No Action cholecalciferol (vitamin D3) 125 mcg (5,000 unit) capsule 125 mcg PO DAILY Galzin 50 mg (zinc) capsule 50 mg PO MOWEFR (DME) Skin Prep Wipes Misc See Rx Instructions .Route Qty: 50 11RF Rx Instructions: As directed clotrimazole-betamethasone 1-0.05 % cream 1 applic topical BID Qty: 15 0RF Rx Instructions: Use with Zeasorb to create paste and apply to affected area. pravastatin 20 mg tablet 20 mg PO QHS Qty: 90 3RF Primary Care Provider: Doyle Jett Referrals: Doyle Jett MD [Primary Care Provider] - Activity Restrictions/Additional Instructions: I wrote you a prescription for Carafate which might help with some of the discomfort in her esophagus. As we discussed if something becomes lodged in your esophagus and you are having trouble swallowing your secretions you return to the ER. I recommend follow-up with a GI doctor for upper endoscopy at some point. Disposition Disposition: Home, Self Care Discharge Date/Time: 01/11/23 20:05
[2023-01-11 16:45] LABS: Absolute Lymphocyte Count 1.79 X10^3/uL (0.83-4.51); Absolute Neutrophil Count 7.1 X10^3/uL (2.0-7.7); Basophil# 0.05 X10^3/uL; Basophil% 0.5 % (0-1); Eosinophil# 0.04 X10^3/uL; Eosinophils% 0.4 % (0-5); Hematocrit 43.5 % (37-47); Hemoglobin 13.5 g/dL (12.0-15.0); Lymphocyte # 1.79 X10^3/ul (0.83-4.51); Lymphocyte % 19.1 % (19-41); Mean Corpuscular Hgb 28.1 pg (27.0-32.0); Mean Corpuscular Volume 90.4 fL (81-99); Mean Platelet Vol. 10.8 fl (6.2-12.0); Monocyte# 0.38 X10^3/uL; Monocyte% 4.1 % (0-10); NRBC Flagged by Analyzer 0 % (0-5); Neutrophil # 7.07 X10^3/uL (2.7-7.7); Neutrophil % 75.6 % (47-70); Platelet Count 163 K/mm3 (150-450); RBC Distribution Width CV 14.1 % (11.6-14.6); Red Blood Count 4.81 M/mm3 (4.2-5.4); White Blood Count 9.4 K/mm3 (4.4-11.0)
[2023-01-11 16:51] LABS: ALB/GLOB Ratio 0.9 RATIO (0.9-2.4); AST(SGOT) 12 U/L (15-37); Alanine Aminotransfer ALT/SGPT 12 U/L (13-56); Albumin, Serum 3.4 g/dL (3.2-5.0); Alkaline Phosphatase 60 U/L (45-117); Anion Gap 7 (5-15); BUN 10 mg/dL (7-18); Chloride 106 mmol/L (98-107); Creatinine, Serum 0.91 mg/dL (0.55-1.02); EST Glomerular Filtration Rate 64 mL/min (>60); Est Glom Filt Rate - Afr Amer 78 mL/min (>60); Estimated Creatinine Clearance 49.25 ml/min; Globulin 3.9 g/dL (2.2-4.2); Glucose 103 mg/dL (74-106); Lipase 20 U/L (13-75); Potassium 3.7 mmol/L (3.5-5.1); Protein, Total 7.3 g/dL (6.4-8.2); Sodium Level 138 mmol/L (136-145); Troponin-I HS 6 pg/mL (3.0-54.0)
[2023-01-11 20:03] VITALS: PULSE 82; RESP 18; O2SAT 100
== END 2023-01-11 20:05 | disposition home or self-care (01) ==
PROVIDERS: Emergency Provider Student in an Organized Health Care Education/Training Program; PCP Family Medicine; Visit Provider Student in an Organized Health Care Education/Training Program
DX: R07.9 Chest pain, unspecified (principal); K94.09 Other complications of colostomy; E78.00 Pure hypercholesterolemia, unspecified; K52.9 Noninfective gastroenteritis and colitis, unspecified; Z90.49 Acquired absence of other specified parts of digestive tract; F17.210 Nicotine dependence, cigarettes, uncomplicated
CPT/HCPCS: 71260; 74177; 80053; 83690; 84484; 85025; 93005; 99283; Q9967; A4216

== ENCOUNTER → 2023-10-26 | Outpatient (CLI) | payer MEDICARE, BC, SELFPAY ==
--- NOTE | 2023-10-26 17:32 | CT_ITS ---
STUDY: LOW DOSE CT LUNG CANCER SCREENING REASON FOR EXAM: Female, 73 years old. Current smoker.. Patient smokes 1 pack per day for 55 years. COPD. RADIATION DOSAGE (If Supplied By Facility): CTDIvol = ( 2.01 ) mGy, DLP = ( 69.47 ) mGycm TECHNIQUE: No contrast was administered. Low dose technique was utilized (average mAS-38 and kVp 120). 1.25 mm axial source images with a slice interval of 1.25-mm were reconstructed in lung windows. 2.5 mm axial source images with a slice interval of 2.5-mm were reconstructed in lung windows. 5.0 mm axial source images with a slice interval of 5.0-mm were reconstructed in soft tissue windows. COMPARISON: Comparison is made with prior study dated January 11, 2023. NODULES: Stable 7 mm slightly irregular nodule in the posterior aspect of the right lung apex. This most likely represents a focal area of scarring. Emphysema: Stable emphysematous changes. Endobronchial lesion: None Aorta: Atherosclerotic plaque formation of the aortic arch. CORONARY ARTERIES: Coronary artery calcification is seen. Heart: Unremarkable Pulmonary artery: Unremarkable Mediastinal nodes: Small mediastinal lymph nodes. Other chest and abdominal findings: CT/Low Dose CT Lung Screening IMPRESSION: Lung-RADS category 2 - Continue annual screening with LDCT in 12 months. IMPORTANT NOTES FOR USE: ACR Lung-RADS Version 1.1 Assessment Categories Release Date: 2018 Category: Coded 0-4 bases on nodule(s) with highest degree of suspicion. Negative screen is defined as categories 1 and 2; a positive screen is defined as categories 3 and 4. Category 3 and 4A nodules that are unchanged on interval CT should be coded as category 2, and individuals returned to screening in 12 months. Category 4X: Category 3 or 4 nodules with additional imaging findings that increase the suspicion of lung cancer, such as spiculation, GGN that doubles in size in 1 year, enlarged lymph notes, etc. Category Modifiers: S (significant finding unrelated to lung cancer) Electronically Signed: Robert Garber MD at 14:45 EDT ,
== END | disposition home or self-care (01) ==
LOC: CT 17:32
PROVIDERS: PCP Family Medicine; Referring Provider Nurse Practitioner Acute Care; Visit Provider Nurse Practitioner Acute Care
DX: F17.210 Nicotine dependence, cigarettes, uncomplicated (principal)
CPT/HCPCS: 71271

== ENCOUNTER 2024-10-18 22:55 | Emergency (ER) | payer MEDICARE, BC, SELFPAY ==
[2024-10-18 22:56] VITALS: BP 137/69; PULSE 74; RESP 16; TEMP 36.2; O2SAT 100
[2024-10-18 23:06] VITALS: BMI 18.6
--- NOTE | 2024-10-18 23:18 | RAD_ITS ---
PROCEDURE: RIGHT ANKLE MIN 3 VIEWS; RIGHT FOOT MIN 3 VIEWS 10/18/2024 REASON FOR EXAM: PAIN TECHNIQUE: Frontal, lateral and oblique radiographs of the right ankle and foot COMPARISON: None. FINDINGS: No acute fracture or dislocation. Alignment is anatomic. Preserved joint spaces. Minimal dorsal and plantar calcaneal spurring. Diffuse qualitative osteopenia. No aggressive osseous lesion. No appreciable focal soft tissue swelling or radiopaque foreign body. RAD/Ankle min 3 Views IMPRESSION: No acute fracture or dislocation. Reading Location: [id number]
--- NOTE | 2024-10-18 23:20 | RAD_ITS ---
PROCEDURE: RIGHT ANKLE MIN 3 VIEWS; RIGHT FOOT MIN 3 VIEWS 10/18/2024 REASON FOR EXAM: PAIN TECHNIQUE: Frontal, lateral and oblique radiographs of the right ankle and foot COMPARISON: None. FINDINGS: No acute fracture or dislocation. Alignment is anatomic. Preserved joint spaces. Minimal dorsal and plantar calcaneal spurring. Diffuse qualitative osteopenia. No aggressive osseous lesion. No appreciable focal soft tissue swelling or radiopaque foreign body. RAD/Foot min 3 Views IMPRESSION: No acute fracture or dislocation. Reading Location: [id number]
[2024-10-18] MEDS: HYDROcodone Bitartrate/Apap 5/325 Tablet PO (23:27)
--- OUTSIDE RECORDS SUMMARY | 2024-10-18 23:28 | XMS RPT_ITS | CCD ---
Author Organization [facility] Care Team Providers Care Corrective Therapy Aide Teacher Name Role Phone Siders, Sara C Unavailable Unavailable Siders, Sara C Unavailable Unavailable KEN, KEENA Admitting Unavailable KEENA PRESLEY Primary Care Unavailable KEENA PRESLEY Attending Unavailable CAMILLA ANDRADE Unavailable PROVIDER, UNKNOWN Consulting Unavailable PROVIDER, UNKNOWN Consulting Unavailable PROVIDER, UNKNOWN Consulting Unavailable ALYSIA CARRANZA Primary Care Unavailable ALYSIA CARRANZA Consulting Unavailable DILLON, ALYSIA Attending Unavailable DILLON, NEOKE Admitting Unavailable PROVIDER, UNKNOWN Consulting Unavailable Dr. Eran Da Silva Referring Provider Dr. Eran Da Silva Other Provider KEYLA Carranza Primary Care Provider [phone] Dr. Azael Andrade Attending Provider [place] HAI RAMIRES Referring Provider Lakisha FIELDS, LIZZY Palacio Attending Provider [phone] KEYLA Carranza Referring Provider Dr. Emily Hoang Attending Provider [phone] KEYLA Carranza Primary Care Provider Dr. Emily Hoang Primary Care Provider [phone] Dr. Emily Hoang Referring Provider [phone] Dr. Enio Dickson Attending Provider KEYLA Carranza Primary Care Provider Dr. Emily Hoang Attending Provider [phone] Franklyn Jett MD Primary Care Provider Dr. Emily Hoang Primary Care Provider Dr. Eran Da Silva Referring Provider Dr. Eran Da Silva Other Provider Dr. Azael Andrade Attending Provider [phone] Emily Hoang Referring Provider Lakisha PRODUCTION ASSEMBLER, PRODUCTION ASSEMBLER-C Pia Attending Provider Franklyn Jett MD Primary Care Provider Lakisha PRODUCTION ASSEMBLER, Pia Attending Unavailable Maliha, Doyle Primary Care Unavailable Doyle Jett Referring Unavailable Lakisha PRODUCTION ASSEMBLER, Pia Attending Unavailable Lakisha PRODUCTION ASSEMBLER, Pia Referring Unavailable Maliha, Doyle Primary Care Unavailable Sean Henry Attending Unavailable Doyle eJtt Primary Care Unavailable Podlogar FILLER IN.Mckenzie EVERETT Unavailable Knoble FILLER IN.Audrey EVERETT Unavailable Knoble FILLER IN.Audrey [place]ERETT Unavailable PODLOGAR, MCKENZIE Referring Unavailable BURSLEY, CHRISTOPHER B Primary Care Unavailab le BURSLEY, CHRISTOPHER B Primary Care Unavailab le PODLOGAR, MCKENZIE Referring Unavailable BURSLEY, CHRISTOPHER B Primary Care Unavailab le BURSLEY, CHRISTOPHER B Referring Unavailab KAIT Mcfarlane Attending Unavailable ALBANIALEY, ALINAOPHER B Primary Care Unavailab le PODLOGAR, MCKENZIE Attending Unavailable ALBANIALEY, CHRISTOPHER B Primary Care Unavailab le PODLOGAR, MCKENZIE Attending Unavailable Allergies Allergy Classification Reported Allergen(s) Allergy Type Date of Onset Reaction(s) Facility HMG-CoA Reductase Inhibitors (statins) (1 source) atorvastatin Drug Allergy 3 Diarrhea [facility] Work Phone: Nitroimidazoles (antibiotic) (1 source) metroNIDAZOLE Drug Allergy 7 Contraindicatio n-Medical Surgical [facility] Work Phone: (20 sources) metroNIDAZOLE; Translations: [METRONIDAZOLE] Drug Allergy 7 Contraindicatio n-Medical Surgical [facility] Work Phone: (20 sources) atorvastatin; Translations: [ATORVASTATIN] Drug Allergy 3 Diarrhea [facility] Work Phone: Medications Current Medications Medication Drug Class(es) Dates Sig (Normalized) Sig (Original) ascorbic acid 500 mg extended release oral tablet (4 sources) Vitamin C Start: 06-07-2021 take 500 mg by mouth once daily Ascorbic Acid (Vitamin C) Active 500 MG PO DAILY June 07, 2021 12:00am betamethasone 0.5 mg/ml / clotrimazole 10 mg/ml topical cream (2 sources) Azole Antifungal, Corticosteroid Start: 03-03-2022 Clotrimazole-Bet amethasone Active 1 APPLIC TOPICAL TWICE A DAY March 03, 2022 1:00am Use with Zeasorb to create paste and apply to affected area. Calcium Carbonate (20 sources) take 1 tablet by mouth once daily calcium carbonate (CALCIUM 600 ORAL) Take 1 tablet by mouth once daily. Active take 1 tablet by mouth once juan carlos y calcium carbonate (CALCIUM 600 ORAL) Take 1 tablet by mouth once daily. 0 Active Comment on above: Take 1 tablet by chrissy th once daily. celecoxib 100 mg oral capsule (3 sources) Nonsteroidal Anti-inflammatory Drug Start: 025 take 1 capsule by mouth twice daily celecoxib (CELEBREX) 100 mg capsule Take 1 capsule by mouth two times a day. 60 capsule 1 09/16/2024 Active cholecalciferol 0.125 mg oral capsule (20 sources) Vitamin D Start: 022 take 125 ug by mouth once daily Cholecalciferol (Vitamin D3) Active 125 MCG PO DAILY June 07, 2021 12:00am take 1 tablet by mouth once juan carlos y cholecalciferol (VITAMIN D-3) 5,000 unit tab Take 5,000 Units by mouth once daily. Active Comment on above: Take 5,000 Units by mouth once daily. 1 ml denosumab 60 mg/ml prefilled syringe (1 source) RANK Ligand Inhibitor Start: 10-05-19 Denosumab (Prolia) 60 mg/mL syringe Active 60 MG SC every 6 months October 04, 2021 12:00am miconazole nitrate 0.02 mg/mg topical powder (20 sources) Azole Antifungal miconazole (DAVID SORB AF) 2 % powder Apply 1 application to affected area as needed. Active Comment on above: Apply 1 application to affected area as needed. 24 hr nicotine 0.583 mg/hr transdermal system (4 sources) Cholinergic Nicotinic Agonist Start: 06-08-19 apply 1 dose transdermal route every twenty-four hours Nicotine Active 1 PATCH TD Q24H June 07, 2021 12:00am Ostomy Supplies (Skin Prep Wipes) misc (2 sources) Start: 03-03-20 Ostomy Supplies (Skin Prep Wipes) misc Active 0 .Route 50 March 03, 2022 1:00am As directed predniSONE 10 mg oral tablet (2 sources) Start: 01-21-20 End: 01-30-20 predniSONE (DELTASONE) 10 mg tablet Indications: Acute pain of left shoulder Take 4 tabs daily for 3 days, then 2 tabs daily for 3 days, then 1 tab daily for 3 days with food. 21 tablet 0 01/20/2023 01/29/2023 Active Comment on above: Take 4 tabs daily fo r 3 days, then 2 tabs daily for 3 days, then 1 tab daily for 3 days with food. rosuvastatin calcium 20 mg oral tablet (20 sources) HMG-CoA Reductase Inhibitor Start: 09-21-19 End: 03-06-20 25 take 1 tablet by mouth once daily at bedtime rosuvastatin (CRESTOR) 20 mg tablet Take 1 tablet by mouth daily at bedtime. 90 tablet 3 03/06/2024 03/06/2025 Active Comment on above: Take 1 tablet by chrissy th daily at bedtime. sucralfate 100 mg/ml oral suspension (1 source) Aluminum Complex Start: 01-12-20 take 1 mL by mouth twice daily Sucralfate (Carafate) 100 mg/mL suspension Active 10 ML PO TWICE A DAY January 11, 2023 7:50pm zinc acetate 50 mg oral capsule (20 sources) Start: 06-08-19 Zinc Acetate (Galzin) 50 mg (zinc) capsule Active 50 MG PO MOWEJune 07, 2021 12:00am End: 03-12-2024 take 1 capsule by mouth every other day Zinc Acetate, Oral, 50 mg (zinc) cap Take 1 capsule by mouth every other day. 03/12/2024 Discontinued (Discontinued by Patient) Comment on above: Take 1 capsule by mo mih every other day. Completed/Discontinued Medications Medication Drug Class(es) Dates Sig (Normalized) Sig (Original) acetaminophen 325 mg / HYDROcodone bitartrate 5 mg oral tablet (2 sources) Opioid Agonist Start: 02-15-2022 End: 03-03-2022 take 1 tablet by mouth every four hours Hydrocodone-Aceta minophen Discontinued 1 TABLET PO Q4H 7 2 February 15, 2022 March 03, 2022 3:04pm alendronic acid 70 mg oral tablet (4 sources) Bisphosphonate Start: 10-10-2023 End: 10-09-2024 take 1 tablet by mouth every week alendronate (FOSAMAX) 70 mg tablet Take 1 tablet by mouth one time a week. Take with a full glass of water, on an empty stomach; do NOT lie down for 30minutes. 12 tablet 3 10/10/2023 03/12/2024 Discontinued (Discontinued by Patient) atorvastatin 40 mg oral tablet (2 sources) HMG-CoA Reductase Inhibitor Start: 09-10-2022 End: 03-09-2023 take 1 tablet by mouth once daily at bedtime for hyperlipidemia atorvastatin (LIPITOR) 40 mg tablet Take 1 tablet by mouth daily at bedtime. For cholesterol. 90 tablet 1 09/10/2022 09/20/2022 Discontinued Comment on above: Take 1 tablet by chrissy th daily at bedtime. For cholesterol. benzonatate 100 mg oral capsule (1 source) Non-narcotic Antitussive Start: 03-21-2018 End: 09-08-2022 take 2 capsules by mouth every eight hours as needed benzonatate (TESSALON PERLES) 100 mg capsule Take 2 capsules by mouth three times daily as needed. 30 capsule 0 03/21/2018 09/08/2022 Discontinued Comment on above: Take 2 capsules by m out three times daily as needed. Calcium Carbonate / vitamin D3 (1 source) End: 09-08-2022 take 1 tablet by mouth once daily CALCIUM CARBONATE/VITAMIN D3 (CALCIUM 600 + D ORAL) Take 1 tablet by mouth once daily. 0 09/08/2022 Discontinued Comment on above: Take 1 tablet by chrissy th once daily. naproxen 500 mg oral tablet (3 sources) Nonsteroidal Anti-inflammatory Drug Start: 09-06-2024 End: 09-16-2024 take 1 tablet by mouth twice daily at mealtime naproxen (NAPROSYN) 500 mg tablet Take 1 tablet by mouth two times a day with meals. 60 tablet 09/06/2024 09/16/2024 Discontinued ondansetron 4 mg oral tablet (1 source) Serotonin-3 Receptor Antagonist Start: 05-09-2017 End: 09-08-2022 take 1 tablet by mouth every eight hours as needed ondansetron (ZOFRAN, HYDROCHLORIDE,) 4 mg tablet Take 1 tablet by mouth every 8 hours as needed for Nausea/Vomiting (for nausea.). 30 tablet 0 05/09/2017 09/08/2022 Discontinued Comment on above: Take 1 tablet by chrissy th every 8 hours as needed for Nausea/Vomiting (for nausea.). oxyCODONE hydrochloride 5 mg oral tablet (6 sources) Opioid Agonist Start: 01-07-2017 End: 01-06-2021 take 5 mg by mouth every four hours Oxycodone Discontinued 5 MG PO Q4H January 07, 2017 12:00am January 06, 2021 7:25am pravastatin sodium 20 mg oral tablet (17 sources) HMG-CoA Reductase Inhibitor Start: 11-10-2016 End: 09-10-2022 take 20 mg by mouth at bedtime Pravastatin Discontinued 20 MG PO AT BEDTIME January 07, 2017 12:00am June 07, 2021 2:33pm Comment on above: Take 20 mg by mouth once daily. triamcinolone acetonide 40 mg/ml injectable suspension (1 source) Corticosteroid Start: 06-16-2021 End: 06-16-2021 Kenalog (triamcinolone acetonide) 40 mg/mL suspension for injection Discontinued 20 MG INTRAARTIC ONCE 0.5 June 16, 2021 8:50am June 16, 2021 9:28am Problems Active Problems Problem Classification Problem Date Documented Da te Episodic/Chronic Adjustment disorders (6 sources) Reactive depression (situational); Translations: [Adjustment disorder with depressed mood] 01-06-2021 Chronic Administrative/social admission (10 sources) Counseling procedure with explicit context; Translations: [Tobacco abuse counseling] Episodic Chronic obstructive pulmonary disease and bronchiectasis (20 sources) Moderate chronic obstructive pulmonary disease; Translations: [Chronic obstructive pulmonary disease, unspecified] Onset: 3 Chronic Diabetes mellitus without complication (6 sources) Hyperglycemia; Translations: [Hyperglycemia, unspecified] 01-06-2021 Episodic Disorders of lipid metabolism (20 sources) Hyperlipidemia; Translations: [Hyperlipidemia, unspecified] Onset: 7 Chronic E Codes: Fall (1 source) Fall; Translations: [Unspecified fall, initial encounter] 03-10-2023 Episodic Esophageal disorders (6 sources) Gastroesophageal reflux disease; Translations: [Gastro-esophageal reflux disease without esophagitis] 01-06-2021 Chronic Noninfectious gastroenteritis (11 sources) Colitis; Translations: [Noninfective gastroenteritis and colitis, unspecified] Onset: 7 11-10-2016 Episodic Nonspecific chest pain (6 sources) Chest pain; Translations: [Chest pain, unspecified] 01-06-2021 Episodic Osteoporosis (20 sources) Osteoporosis; Translations: [Age-related osteoporosis without current pathological fracture] Onset: 3 Chronic Other aftercare (2 sources) Follow-up status; Translations: [Encounter for other orthopedic aftercare] 02-28-2022 Episodic Other bone disease and musculoskeletal deformities (6 sources) Osteopenia; Translations: [Other specified disorders of bone density and structure, unspecified site] 01-06-2021 Episodic Other connective tissue disease (6 sources) Hand pain; Translations: [Pain in unspecified hand] 01-06-2021 Episodic Other connective tissue disease (11 sources) Triggering of digit; Translations: [Trigger finger, unspecified finger] 06-16-2021 Episodic Other connective tissue disease (3 sources) Trigger finger, unspecified finger; Translations: [Trigger finger (acquired)] Episodic Other connective tissue disease (3 sources) Trigger finger, right ring finger; Translations: [Trigger finger (acquired)] Episodic Other connective tissue disease (1 source) Pain of left upper arm; Translations: [Pain in left upper arm] 03-10-2023 Episodic Other diseases of kidney and ureters (6 sources) Cyst of kidney; Translations: [Cyst of kidney, acquired] 01-06-2021 Episodic Other gastrointestinal disorders (20 sources) Ileostomy present; Translations: [Ileostomy status] Onset: 7 Chronic Other gastrointestinal disorders (1 source) Ileostomy status; Translations: [Ileostomy in place (HCC)] Onset: 8 Chronic Other lower respiratory disease (6 sources) Dyspnea; Translations: [Dyspnea, unspecified] 01-13-2021 Episodic Other lower respiratory disease (6 sources) Nodule of lung; Translations: [Solitary pulmonary nodule] 01-06-2021 Episodic Other lower respiratory disease (6 sources) Solitary nodule of lung; Translations: [Solitary pulmonary nodule] 11-17-2021 Episodic Other lower respiratory disease (2 sources) Solitary pulmonary nodule; Translations: [Solitary pulmonary nodule] Episodic Other nervous system disorders (2 sources) Acute postoperative pain; Translations: [Other acute postprocedural pain] 02-15-2022 Episodic Other non-traumatic joint disorders (5 sources) Pain in left shoulder; Translations: [Pain in joint, shoulder region] Onset: 5 01-20-2023 Episodic Other screening for suspected conditions (not mental disorders or infectious disease) (12 sources) Mammography abnormal; Translations: [Other abnormal and inconclusive findings on diagnostic imaging of breast] Onset: Episodic Other skin disorders (1 source) Lesion of skin of nose; Translations: [Disorder of the skin and subcutaneous tissue, unspecified] 09-11-2023 Episodic Prolapse of female genital organs (6 sources) Midline cystocele; Translations: [Cystocele, midline] 01-06-2021 Chronic Regional enteritis and ulcerative colitis (20 sources) Chronic ulcerative pancolitis; Translations: [Ulcerative (chronic) pancolitis with other complication] Onset: 7 Resolved: 7 Chronic Residual codes; unclassified (6 sources) History of partial resection of colon; Translations: [Acquired absence of other specified parts of digestive tract] 01-13-2021 Episodic Residual codes; unclassified (2 sources) Postmenopausal state; Translations: [Asymptomatic menopausal state] 09-11-2023 Episodic Residual codes; unclassified (1 source) History of excision of intestinal structure; Translations: [Acquired absence of other specified parts of digestive tract] 10-20-2023 Episodic Spondylosis; intervertebral disc disorders; other back problems (10 sources) Narrowing of intervertebral disc space; Translations: [Other intervertebral disc degeneration, lumbar region] Chronic Substance-related disorders (20 sources) Cigarette smoker ; Translations: [Nicotine dependence, cigarettes, uncomplicated] Onset: Chronic Thyroid disorders (6 sources) Thyroid nodule; Translations: [Nontoxic single thyroid nodule] 02-05-2021 Chronic Unclassified (1 source) Patient encounter status 09-06-2024 Past or Other Problems Problem Classification Problem Date Documented Date Episodic/Chronic Abdominal pain (2 sources) Abdominal pain; Translations: [Unspecified abdominal pain] Onset: 11-10-2016 11-10-2016 Episodic Nutritional deficiencies (19 sources) Deficiency of macronutrients; Translations: [Unspecified severe protein-calorie malnutrition] Onset: 01-03-2017 Resolved: 09-12-2022 09-12-2022 Chronic Other and unspecified benign neoplasm (20 sources) Adenomatous polyp of colon ; Translations: [Benign neoplasm of colon, unspecified] Onset: 12-01-2016 01-04-2017 Episodic Other injuries and conditions due to external causes (1 source) Other foreign object in pharynx causing other injury, initial encounter; Translations: [Other foreign object in pharynx causing other injury, initial encounter] Onset: 01-17-2023 Episodic Other nervous system disorders (20 sources) Postoperative pain ; Translations: [Other acute postprocedural pain] Onset: 01-04-2017 05-09-2017 Episodic Residual codes; unclassified (20 sources) History of colectomy; Translations: [Acquired absence of other specified parts of digestive tract] Onset: 09-11-2023 09-11-2023 Episodic Residual codes; unclassified (1 source) Acquired absence of other specified parts of digestive tract; Translations: [S/P colectomy] Onset: 09-11-2023 Episodic Unclassified (2 sources) Acute pain of left shoulder 09-06-2024 Results Test Name Value Interpretation Reference Range Facility GURU SCREENING W TOMOon 10-16 GURU SCREENING W PAMELA * * *Final Report* * * DATE OF EXAM: Oct 16 2024 10:58AM [facility]ICES [id number] - [facility] SCREENING W PAMELA / PROCEDURE REASON: Encounter for screening mammogram for malignant neoplasm of breast * * * * Physician Interpretation * * * * RESULT: [address] [address] [place] [address] #[id number] - MAM SCREENING W PAMELA HISTORY: 74 year-old patient presents for screening. Patient is asymptomatic in both breasts. Patient states no personal history of breast cancer. COMPARISON STUDIES: The present examination has been compared to prior imaging studies dated 09/26/2022 (mammogram) and 09/29/2023 (mammogram). MAMMOGRAM TECHNIQUE: The study was acquired using full field digital technology and interpreted from soft copy. Digital Breast Tomosynthesis (DBT) images were obtained and used to assist in the interpretation of this examination. MAMMOGRAM FINDINGS: There are scattered areas of fibroglandular density. No suspicious masses, calcifications or other abnormalities are seen in either breast. There are no significant interval changes. IMPRESSION: There is no mammographic evidence of malignancy in either breast. Routine screening mammogram is recommended. Annual mammogram will be due in 1 year. BI-RADS Category 1: Negative RISK: Based on the Tyrer-Cuzick (TC) risk assessment model, this patient has a 0.9% lifetime risk of developing breast cancer, meaning they are at average risk for developing breast cancer. However, this is only an estimate based on available history provided on the patient's questionnaire. We encourage all patients to talk with their providers about these results, further recommendations for managing breast health, and appropriate supplemental screening options if the patient has dense breast tissue. Interpreting Radiologist: Marco A Boyce M.D. Electronically signed on: 10/17/2024 Metal Machinist: SOTERO Transcribe Date/Time: Oct 16 2024 10:50A Dictated by: MARCO A BOYCE MD This examination was interpreted and the report reviewed and electronically signed by: MARCO A BOYCE MD on Oct 17 2024 10:59AM EST [id number] Normal [facility] CNPDeb 09-11-2024 CNPN Telephone (COUMWS) ---- SHARITA TRAORE ([id number]) 1950 F Date Time Provider Department 09/11/24 MCKENZIE SANTIAGO During your visit today, we recorded the following information about you: Diego Hamilton, RN 09/11/2024 1:51 PM Signed patient is calling in requesting results of her xray that she had done on 09/06/24. status in [facility] states still in process. patient is wanting to know if we can get this read. please review and advise, patient needs called with information SaralogMckenzie quick APRN.KARLOS 09/11/2024 1:55 PM Signed Can we call radiology to see what is taking so long Mckenzie Santiago APRN.Selam Melendez, BATSHEVA 09/11/2024 2:45 PM Signed Niece Azucena checking on xray results. States patient is having a lot of pain and asking if patient can take an xtra naproxen. Advised Azucena since pt take naproxen twice a day, try giving pt a tylenol. Zaucena agreeable. Phoned radiology pss and spoke with Ira, who checked on this and came back to phone to report xrays can take 3-5 business days- not counting weekends. Ira teams messaged radiology dept, Radha Chambers to check for updates. SaralogMckenzie quick APRN.KARLOS 09/11/2024 2:46 PM Signed She can take an extra Naproxen Mckenzie Santiago APRN.Diego Servin LPN 09/11/2024 6:30 PM Signed Patients niece telephoned and notified. Voices understanding. Diego Alejandra LPN Allergies As of Date: 09/11/2024 Noted Allergy Reaction LIPITOR (ATORVASTATIN) 09/20/2022 6 - Diarrhea METRONIDAZOLE 01/26/2017 15 - Contraindication-Me dical Arana* Comments: Neuropathy Date Reviewed: 09/06/2024 Reviewed by: Diego Alejandra LPN - Fully Assessed Reason for Visit: Results [95] Cmt: xray from 09/06/24 Prescriptions as of 09/18/2024 - celecoxib (CELEBREX) 100 mg capsule Take 1 capsule by mouth two times a day. - rosuvastatin (CRESTOR) 20 mg tablet Take 1 tablet by mouth daily at bedtime. - calcium carbonate (CALCIUM 600 ORAL) Take 1 tablet by mouth once daily. - cholecalciferol (VITAMIN D-3) 5,000 unit tab Take 5,000 Units by mouth once daily. - miconazole (ZEASORB AF) 2 % powder Apply 1 application to affected area as needed. 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] 12/01/2016 Dyslipidemia [E78.5] 12/28/2016 Ulcerative chronic pancolitis (HCC) [K51.00] 01/02/2017 01/26/2017 Severe protein-calorie malnutrition (HCC) [E43] 01/03/2017 09/12/[address] (HCC) [Z93.2] 01/04/2017 Post-operative pain [G89.18] 01/04/2017 Ulcerative (chronic) pancolitis with other comp*05/04/2017 Tobacco use disorder [F17.200] 09/08/2022 Osteoporosis [M81.0] 09/08/2022 Moderate COPD (chronic obstructive pulmonary di*09/12/2022 S/P colectomy [Z90.49] 09/11/2023 Encounter Status:Closed by DIEGO HAMILTON on 09/18/24 [facility] Adina 09-06-2024 DEANGELO Office Visit (RANIWS) ---- SHARITA TRAORE ([id number]) 1950 F Date Time Provider Department 09/06/24 11:40 AM MCKENZIE SANTIAGO During your visit today, we recorded the following information about you: Pulse Respiration Blood pressure Weight 70/minute 18/minute 132/78 52.2 kg Mckenzie Santiago APRN.CNP 09/06/2024 11:42 AM Signed 09/06/2024 Patient presents with: Arm Pain: Left arm pain x2 weeks after heavy lifting Recording using ambient AI software for draft documentation of the visit was discussed with the patient/authorized registered representative; all questions welcomed and answered. Patient/authorized registered representative agreed to proceed SUBJECTIVE: This is a 74 year old that is here today for Above Complaints.. Left Arm Pain: - Onset after lifting 15 bags of mulch in July. - Pain extends from the shoulder to the elbow, sometimes further down the arm. - Described as constant, with both sharp and burning sensations. - Aggravated by sitting with the arm bent; alleviated by standing with the arm straight. - Keeps her awake at night. - No known recent trauma; similar pain occurred a few years ago after lifting a push mower. - Denies swelling, redness, numbness, or tingling. - Tried Tylenol, ibuprofen, and topical patches with minimal relief. - Right-handed. 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 Da Silva Osteoporosis S/P colectomy Skin cancer removed in November 2023- not sure what kind Tobacco use disorder Trigger finger of right hand ALLERGIES Lipitor [Atorvastatin] and Metronidazole MEDICATIONS Current Outpatient Medications Medication Sig naproxen (NAPROSYN) 500 mg tablet Take 1 tablet by mouth two times a day with meals. rosuvastatin (CRESTOR) 20 mg tablet Take 1 tablet by mouth daily at bedtime. calcium carbonate (CALCIUM 600 ORAL) Take 1 tablet by mouth once daily. cholecalciferol (VITAMIN D-3) 5,000 unit tab Take 5,000 Units by mouth once daily. miconazole (ZEASORB AF) 2 % powder Apply 1 application to affected area as needed. No current facility-administer ed medications for this visit. Medications and allergies reviewed by this provider. SOCIAL HISTORY Social History Tobacco Use Smoking status: Every Day Current packs/day: 0.50 Average packs/day: 0.5 packs/day for 60.0 years (30.0 ttl pk-yrs) Types: Cigarettes Smokeless tobacco: Never Substance Use Topics Alcohol use: No Drug use: No REVIEW OF SYSTEMS Musculoskeletal: (+) left shoulder and arm pain, (-) swelling Skin: (-) erythema Neurological: (-) numbness, (-) tingling OBJECTIVE: BP 132/78 Pulse 70 Resp 18 Wt 52.2 kg (115 lb) SpO2 98% BMI 18.28 kg/m? . Vital signs reviewed by this provider. GENERAL: NAD, alert and oriented. SKIN: Unremarkable, no rash or skin lesions to exposed skin HEAD: Normocephalic. EYES: conjunctiva clear. LUNGS: Clear to auscultation bilaterally, no wheezes/rhonchi/ral es. HEART: Regular rate and rhythm, no murmurs. No ectopy. EXTREMITIES: Left arm with limited range of motion and significant pain on movement, particularly at the AC joint. No swelling or erythema noted. Right arm with normal strength and range of motion. No deformities, no skin discoloration, no edema. Positive Quispe and Neer. Negative empty can test. 2+ radial pulse NEURO: Awake, alert and oriented x3, cranial nerves II-XII grossly intact, normal gait, no involuntary motions. Depression Screening Never done Anxiety Screening Never done Lung Cancer Screening Never done Medicare Annual Wellness Visit Never done Covid-19 Vaccine( season) due on 11/26/2023 Advance Directive Discussion Never done DTaP,Tdap,Td Vaccine(1 - Tdap) due on 09/10/2024 RSV Vaccine(1 - 1-dose 75+ series) due on 09/10/2024 Annual PCP Team Chronic Disease Visit due on 09/06/2025 Bone Density Screening due on 10/05/2025 Diabetes Screening due on 09/10/2026 Influenza Vaccine Completed Shingrix Vaccine Completed Pneumococcal Vaccine: 50+ Completed Mammogram Screening Discontinued Hepatitis C Screening Discontinued 1. Acute pain of left shoulder (M25.512) - Onset after heavy lifting activities; pain radiates from shoulder to elbow, described as sharp and burning, exacerbated by certain movements and positions. - No history of surgery on the affected arm; no reported numbness or tingling. - Physical examination reveals tenderness at the AC joint and limited range of motion due to pain. - Differential diagnosis includes tendinitis or possible small rotator cuff tear. - Ordered X-ray to evaluate for arthritis or other bony abnormalities. - Prescribed naproxen to be taken twice daily with food; advised against concurrent use of other NSAIDs. - Recommended use of ice or heat for 15 minut (more content not included)... Normal [facility] XR SHLDR >/=3V AP/ANNE AP/OTH R LTon 09-06-2024 XR SHLDR >/=3V AP/ANNE AP/OTHR LT * * *Final Report* * * DATE OF EXAM: Sep 06 2024 11:55AM WOX [id number] - XR SHLDR >/=3V AP/ANNE AP/OTHR LT / PROCEDURE REASON: Acute pain of left shoulder * * * * Physician Interpretation * * * * XR SHLDR >/=3V AP/ANNE AP/OTHR LT 09/06/2024 11:55 AM HISTORY: Acute pain of left shoulder TECHNIQUE: 3 view(s) of the left shoulder COMPARISON: 01/20/2023 RESULT: Bone mineralization/ degenerative changes: Osteopenia is suggested. Mild narrowing AC joint. Alignment of the osseous structures: The alignment appears anatomical without a subluxation or dislocation seen. Fractures: No acute fractures are seen. Soft tissues: No radiopaque foreign bodies are seen. IMPRESSION: No acute fracture or dislocation is seen. Mild degenerative change Metal Machinist: [facility] Transcribe Date/Time: Sep 12 2024 5:09P Dictated by : KATHIE AUGUSTINE MD This examination was interpreted and the report reviewed and electronically signed by: KATHIE AUGUSTINE MD on Sep 12 2024 5:09PM EST [id number] Normal [facility] CNOVon 03-12-2024 CNOV Office Visit (FAMWS) ---- SHARITA TRAORE ([id number]) 1950 F Date Time Provider Department 03/12/24 10:00 AM MCKENZIE SANTIAGO During your visit today, we recorded the following information about you: Pulse Respiration Blood pressure Weight 61/minute 16/minute 138/86 55 kg Mckenzie Santiago APRN.CNP 03/12/2024 11:27 AM Signed 03/12/2024 Patient presents with: F/U 6 months SUBJECTIVE: This is a 73 year old that is here today for Above Complaints.. Smokes a half a pack a day. Follows with Dr. Da Silva for hx of lung nodules and COPD. Had follow-up appointment with CT of lungs in October with no new findings. Denies SOB, dyspnea, wheezing or coughing. HYPERLIPIDEMIA: Patient is taking medications: Yes. Patient is watching diet: Yes. Patient denies myalgias: Yes. Patient denies gi upset: Yes S/P colectomy. Followed up with GI on 10/20/2023. Recommended follow-up as needed. No issues at this time Osteoporosis: took Fosamax for awhile but doesn't want to take it. 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 Da Silva Osteoporosis S/P colectomy Tobacco use disorder Trigger finger of right hand ALLERGIES Lipitor [Atorvastatin] and Metronidazole MEDICATIONS Current Outpatient Medications Medication Sig rosuvastatin (CRESTOR) 20 mg tablet Take 1 tablet by mouth daily at bedtime. alendronate (FOSAMAX) 70 mg tablet Take 1 tablet by mouth one time a week. Take with a full glass of water, on an empty stomach; do NOT lie down for 30minutes. Zinc Acetate, Oral, 50 mg (zinc) cap Take 1 capsule by mouth every other day. (Patient not taking: Reported on 09/11/2023) calcium carbonate (CALCIUM 600 ORAL) Take 1 tablet by mouth once daily. cholecalciferol (VITAMIN D-3) 5,000 unit tab Take 5,000 Units by mouth once daily. miconazole (ZEASORB AF) 2 % powder Apply 1 application to affected area as needed. No current facility-administer ed medications for this visit. Medications and allergies reviewed by this provider. SOCIAL HISTORY Social History Tobacco Use Smoking status: Every Day Current packs/day: 0.50 Average packs/day: 0.5 packs/day for 60.0 years (30.0 ttl pk-yrs) Types: Cigarettes Smokeless tobacco: Never Substance Use Topics Alcohol use: No Drug use: No REVIEW OF SYSTEMS All other reviewed and negative other than HPI. OBJECTIVE: BP 138/86 Pulse 61 Resp 16 Wt 55 kg (121 lb 4.1 oz) SpO2 98% BMI 19.28 kg/m? . Vital signs reviewed by this provider. APPEARANCE Well appearing, alert, in no acute distress, well-hydrated, well nourished. EYES PERRLA, conjunctiva and sclera normal. HEART RRR with normal S1 and S2, no murmurs, no gallops, no JVD appreciated LUNG clear to auscultation. No wheezes, rhonchi or rales EXTREMITIES Extremities normal, No deformities, No skin discoloration, No edema SKIN Skin color, texture, turgor normal, no suspicious rashes or lesions to exposed skin Latest Ref [facility] 09/11/2023 WBC 3.70 - 11.00 k/uL 6.06 RBC 3.90 - 5.20 m/uL 4.96 Hemoglobin 11.5 - 15.5 g/dL 14.6 Hematocrit 36.0 - 46.0 % 45.2 MCV 80.0 - 100.0 fL 91.1 MCH 26.0 - 34.0 pg 29.4 MCHC 30.5 - 36.0 g/dL 32.3 RDW-CV 11.5 - 15.0 % 13.9 Platelet Count 150 - 400 k/uL 186 MPV 9.0 - 12.7 fL 10.9 Neut% % 54.9 Abs Neut (ANC) 1.45 - 7.50 k/uL 3.33 Lymph% % 38.3 Abs Lymph 1.00 - 4.00 k/uL 2.32 Martin% % 4.8 Abs Martin <0.87 k/uL 0.29 Eosin% % 0.8 Abs Eosin <0.46 k/uL 0.05 Baso% % 1.0 Abs Baso <0.11 k/uL 0.06 Immature Gran % % 0.2 IMMATURE GRANS (ABS) <0.10 k/uL <0.03 NRBC /100 WBC 0.0 Absolute nRBC <0.01 k/uL <0.01 DTYPE Auto Protein, Total 6.3 - 8.0 g/dL 7.2 Albumin 3.9 - 4.9 g/dL 4.3 Calcium 8.5 - 10.2 mg/dL 9.9 Bilirubin, Total 0.2 - 1.3 mg/dL 0.7 Alkaline Phosphatase 34 - 123 U/L 63 AST 13 - 35 U/L 23 ALT 7 - 38 U/L 10 Glucose 74 - 99 mg/dL 105 (H) BUN 7 - 21 mg/dL 11 Creatinine 0.58 - 0.96 mg/dL 0.90 Sodium 136 - 144 mmol/L 138 Potassium 3.7 - 5.1 mmol/L 4.5 Chloride 98 - 107 mmol/L 104 CO2 22 - 30 mmol/L 24 Anion Gap 8 - 15 mmol/L 10 eGFR >=60 mL/min/1.73m? 67 Total Cholesterol, Nonfasting <200 mg/dL 163 Triglycerides, Nonfasting <150 mg/dL 115 HDL Cholesterol, Nonfasting >39 mg/dL 68 LDL Cholesterol, Nonfasting <100 mg/dL 72 Non HDL Cholesterol, Nonfasting <130 mg/dL 95 VLDL Cholesterol, Nonfasting <30 mg/dL 23 Total Chol/HDL Ratio, Nonfasting <5.10 mg/dL 2.40 LDL/HDL Ratio, Nonfasting <2.54 mg/dL 1.06 Legend: (H) High ASSESSMENT/PLAN: 1. Hyperlipidemia, mixed - ICD9: 272.2, ICD10: E78.2 (primary diagnosis) - Controlled - Continue current medications - Counseled on healthy diet and regular exercise - Follow up in 6 months, sooner should any other issues arise. (more content not included)... Normal [facility] Pulmonary Visit Reporton Pulmonary Visit Report [facility] of [address] [place] [address] OFFICE VISIT Date of Service: 12/13/23 MR#: [id number] Acct: [id number] Name: SHARITA TRAORE Rep #: [id number] : 1950 Provider: LIZZY Banuelos Age/Sex: 73/F [facility] Status: Signed Assessment and Plan Assessment and Plan (1) Stage 1 mild COPD by GOLD classification: Status: Chronic Plan: She remains asymptomatic. No indication for inhalers at this time. Follow-up in 1 year. Reviewed the sick policy with the patient. She is agreeable with this plan. Repeat PFT prior to follow-up visit. (2) Smoking greater than 40 pack years: Status: Chronic Comment: Ordered for September 2023 Plan: She has been encouraged to quit smoking. She remains appropriate for LDCT, due October 2024. Ordered accordingly. Follow-up in 1 year to discuss test results. Orders: Orders Pulmonary Function Test (Comp) 10/25/24 J44.9 - Chronic obstructive pulmonary disease, unspecified Low Dose CT Lung Screening 10/25/24 F17.200 - Nicotine dependence, unspecified, uncomplicated, F17.210 - Nicotine dependence, cigarettes, uncomplicated Plan Details Follow Up: 1 Year ([facility]) HPI 1 Y FU Chief Complaint: Routine follow-up HPI Comments Details: This patient presents to the office today for follow-up of her COPD and previously identified lung nodule. She is ambulatory and currently on room air. She is accompanied today by her daughter. She has not recently been seen in the ED or urgent care for any respiratory illness. She has not required any antibiotics or prednisone for any breathing problems. She denies any shortness of breath. She denies any cough, sputum production or hemoptysis. She denies any wheezing, chest tightness, chest pain or palpitations. She has not had any fever, chills or body aches. She continues to smoke cigarettes. She is currently smoking 1/2 pack/day. Test results personally reviewed with patient: LDCT completed on October 26, 2023. Noted is a stable 7 mm slightly irregular nodule in the posterior aspect of the right lung apex. This most likely represents focal area of scarring. Recommendation is to complete an annual LDCT in 12 months. Intake Vital Signs 09/11/23 12:10 12/13/23 07:32 Height 5 ft 6 in 5 ft 6 in Weight: 125 lb BMI 20.1 BP 117/70 Blood Pressure Location Lt brachial Position Sitting Respiration 18 Pulse 72 Pulse Source Monitor Temp 97.0 F L Temperature Source Temporal Artery Pulse Oximetry (%) 99 Oxygen Delivery Method room air Intake Visit Reasons: 1 Y FU Chief Complaint: Test results [facility] Vendor: MARTÍN Accompanied by: Niece Is patient in pain?: No Allergies No Known Allergies Allergy (Verified 12/13/23 07:51) Medications ???Medication ???Instructions ???Recorded ???Confirmed ???Type cholecalciferol (vitamin D3) 125 125 mcg PO DAILY 06/07/21 12/13/23 History mcg (5,000 unit) capsule zinc acetate 50 mg (zinc) capsule 50 mg PO MOWEFR 06/07/21 12/13/23 History (Galzin) clotrimazole-betame thasone 1 1 applic topical BID #15 grams 03/03/22 12/13/23 Rx %-0.05 % topical cream ostomy supplies (Skin Prep Wipes) #50 ea 03/03/22 12/13/23 Rx sucralfate 100 mg/mL oral 10 ml PO BID PRN epigastric 01/11/23 12/13/23 Rx suspension (Carafate) pain/dyspepsia #400 mL alendronate 70 mg tablet 70 mg PO QWEEK 12/13/23 12/13/23 History doxycycline monohydrate 100 mg 100 mg PO BID 12/13/23 12/13/23 History tablet rosuvastatin 20 mg tablet 20 mg PO QHS 12/13/23 12/13/23 History Have you fallen in the past year?: No PFSH Medical History Wears glasses Wears dentures Post-menopausal High cholesterol Back pain Injury of back Smoker History of stress test Sacroiliitis Abnormal mammogram of left breast Tobacco abuse counseling Trigger finger of right hand Midline cystocele Renal cyst Osteoporosis Hand pain Lumbar disc narrowing Colitis Hyperlipidemia Pulmonary nodule Hyperglycemia Chest pain Osteopenia GERD (gastroesophageal reflux disease) Situational depression Surgical History Hx of colonoscopy History of hand surgery History of rectal surgery S/P colectomy Family History Father COPD (chronic obstructive pulmonary disease) Mother Myocardial infarction Sister Cancer Lung Brother Cancer Throat Social History Smoking Status: Current every day smoker tobacco type: cigarettes alcohol intake: never Review of Systems Resp Respiratory: Yes as per HPI Exam Const C (more content not included)... Normal [facility] Low Dose CT Lung Screeningon 10-26-[address] Lung Screening [facility] Imaging Services [address] [place] [id number] Lung Screening MR#: [id number] Acct: [id number] Name: SHARITA TRAORE Rep #: [id number] : 1950 F 73 From: Robert huang MD PCP: Dr. Doyle Jett MD Status: REG [facility] Study: Low Dose CT Lung Screening Date of Exam: 10/25 Exam# [id number] Ordering Dr: Pia Banuelos PRODUCTION ASSEMBLER PRODUCTION ASSEMBLER-C [id number] STUDY: LOW DOSE CT LUNG CANCER SCREENING REASON FOR EXAM: Female, 73 years old. Current smoker.. Patient smokes 1 pack per day for 55 years. COPD. RADIATION DOSAGE (If Supplied By Facility): CTDIvol = ( 2.01 ) mGy, DLP = ( 69.47 ) mGycm TECHNIQUE: No contrast was administered. Low dose technique was utilized (average mAS-38 and kVp 120). 1.25 mm axial source images with a slice interval of 1.25-mm were reconstructed in lung windows. 2.5 mm axial source images with a slice interval of 2.5-mm were reconstructed in lung windows. 5.0 mm axial source images with a slice interval of 5.0-mm were reconstructed in soft tissue windows. COMPARISON: Comparison is made with prior study dated January 11, 2023. NODULES: Stable 7 mm slightly irregular nodule in the posterior aspect of the right lung apex. This most likely represents a focal area of scarring. Emphysema: Stable emphysematous changes. Endobronchial lesion: None Aorta: Atherosclerotic plaque formation of the aortic arch. CORONARY ARTERIES: Coronary artery calcification is seen. Heart: Unremarkable Pulmonary artery: Unremarkable Mediastinal nodes: Small mediastinal lymph nodes. Other chest and abdominal findings: CT/Low Dose CT Lung Screening IMPRESSION: Lung-RADS category 2 - Continue annual screening with LDCT in 12 months. IMPORTANT NOTES FOR USE: ACR Lung-RADS Version 1.1 Assessment Categories Release Date: 2018 Category: Coded 0-4 bases on nodule(s) with highest degree of suspicion. Negative screen is defined as categories 1 and 2; a positive screen is defined as categories 3 and 4. Category 3 and 4A nodules that are unchanged on interval CT should be coded as category 2, and individuals returned to screening in 12 months. Category 4X: Category 3 or 4 nodules with additional imaging findings that increase the suspicion of lung cancer, such as spiculation, GGN that doubles in size in 1 year, enlarged lymph notes, etc. Category Modifiers: S (significant finding unrelated to lung cancer) Electronically Signed: Robert Garber MD at 14:45 EDT , CC: LIZZY Banuelos; Dr. Doyle Jett MD Metal Machinist: Signed [facility] CNOVon 10-20-2023 CNOV Office Visit ([facility]) ---- SHARITA TRAORE ([id number]) 1950 F Date Time Provider Department 10/20/23 10:30 AM KAIT WILSON [facility] During your visit today, we recorded the following information about you: Pulse Blood pressure Weight Height 66/minute 126/78 55.8 kg 1.689 m Kait Wilson, [facility] 10/20/2023 12:45 PM Signed CHIEF COMPLAINT: Patient presents with: Ulcerative pancolitis: Has not been seen since 05/04/17 surgery This consult was requested by Franklyn Jett,* for an opinion regarding hx of JENNIFER. My final recommendations will be communicated to the requesting health care provider by way of the shared medical record for internal providers or letter via the [employer] for external providers. HPI: Sharita Traore is a 73 year old female who presents for Ulcerative pancolitis (Has not been seen since 05/04/17 surgery). Back in 2017, was diagnosed with acute colitis (no prior issues or dx of colitis). She underwent colonoscopy in 2017 and she had multiple polyps with high grade dyplasia and colon biopsies showing focal active colitis with no features of chronic colitis. She underwent colectomy. She saw Dr. Paez 01/2017, and she felt there was no evidence if Crohn's or colitis, however if it was early colitis, she was cured d/t colectomy. Colectomy path did not show colitis. She decided against IPAA and had a completion proctectomy with Dr. Alton Garcia. She had some post-op pelvic pain after her completion proctectomy, so Dr. Garcia ordered CT to r/o parastomal hernia, with planned f/u after CT, however follow up was not needed d/t no hernia and resolution of pain. Currently, she has no issues. Empties ileostomy BID - stools are consistent. Denies any blood in the stool. Denies any diarrhea, abdominal pain. She feels well. Record Review: [facility] / Outside records reviewed. 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 Da Silav Osteoporosis S/P colectomy Tobacco use disorder Trigger finger of right hand PAST SURGICAL HISTORY Procedure Laterality Date HAND SURGERY HX 01/2022 LIGATE FALLOPIAN TUBE PAST SURGICAL HISTORY OF 2016 colonoscopy PAST SURGICAL HISTORY OF 12/2016 total colectomy PAST SURGICAL HISTORY OF 01/2022 right trigger finger release-Dr. García PAST SURGICAL HISTORY OF 03/2023 lens implants Allergies: ALLERGIES Allergen Reactions Lipitor [Atorvastat* Diarrhea Metronidazole Contraindication-Me dical Surgical Neuropathy Medications: rosuvastatin (CRESTOR) 20 mg tablet Take 1 tablet by mouth daily at bedtime. calcium carbonate (CALCIUM 600 ORAL) Take 1 tablet by mouth once daily. cholecalciferol (VITAMIN D-3) 5,000 unit tab Take 5,000 Units by mouth once daily. miconazole (ZEASORB AF) 2 % powder Apply 1 application to affected area as needed. alendronate (FOSAMAX) 70 mg tablet Take 1 tablet by mouth one time a week. Take with a full glass of water, on an empty stomach; do NOT lie down for 30minutes. Zinc Acetate, Oral, 50 mg (zinc) cap Take 1 capsule by mouth every other day. (Patient not taking: Reported on 09/11/2023) FAMILY HISTORY Problem Relation Age of Onset Heart Mother heart attack COPD Father Cancer Sister 48 lung, +TOB Cancer Brother 56 throat, +TOB/[place] Cancer Maternal Grandmother 38 kidney Cancer Paternal Grandmother 71 ?? Colon Cancer Paternal Grandfather 61 Employer And Job Title: None on file Years Of Education Completed: Not specified Marital Status: Social History Tobacco Use Smoking status: Every Day Packs/day: 0.50 Years: 60.00 Additional pack years: 0.00 Total pack years: 30.00 Types: Cigarettes Smokeless tobacco: Never Substance Use Topics Alcohol use: No Drug use: No Review of Systems: Review of Systems All other systems reviewed and are negative. Are you taking any blood thinners? No Physical Examination: Pulse 66 Ht 5' 6.5" (1.69m) Wt 123 lb (55.8kg) BMI 19.56 kg/(m2). Physical Exam Vitals and nursing note reviewed. Constitutional: Appearance: Normal appearance. She is normal weight. HENT: Head: Normocephalic and atraumatic. Mouth/Throat: Mouth: Mucous membranes are moist. Eyes: General: No scleral icterus. Cardiovascular: Rate and Rhythm: Normal rate and regular rhythm. Pulmonary: Breath sounds: Normal breath sounds. Abdominal: General: Abdomen is flat. Bowel sounds are normal. Palpations: Abdomen is soft. Tenderness: There is no abdominal tenderness. There is no guarding or rebound. Comments: RLQ ostomy appliance in place. No surrounding erythema Skin: General: Skin is warm and dry. Neurological: Mental Status: She is alert and oriented to person, place, and time. Psychiatric: Mood and Affect: Mood (more content not included)... Normal [facility] CBC W Auto Differential pane l (Bld)on 09-11-2023 Basophils (Bld) [#/Vol] 0.06 10*3/uL [facility] Basophils/100 WBC (Bld) 1.0 % [facility] Differential cell count method Nom (Bld) Auto [facility] Eosinophils (Bld) [#/Vol] 0.05 10*3/uL [facility] Eosinophils/100 WBC (Bld) 0.8 % [facility] Erythrocyte distribution width (RBC) [Ratio] 13.9 % 11.5 - 15.0 % [facility] Hematocrit (Bld) [Volume fraction] 45.2 % 36.0 - 46.0 % [facility] Hemoglobin (Bld) [Mass/Vol] 14.6 g/dL 11.5 - 15.5 g/dL [facility] Immature granulocytes (Bld) [#/Vol] NINF [facility] Immature granulocytes/100 WBC (Bld) 0.2 % [facility] Lymphocytes (Bld) [#/Vol] 2.32 10*3/uL [facility] Lymphocytes/100 WBC (Bld) 38.3 % [facility] MCH (RBC) [Entitic mass] 29.4 pg 26.0 - 34.0 pg [facility] MCHC (RBC) [Mass/Vol] 32.3 g/dL 30.5 - 36.0 g/dL [facility] MCV (RBC) [Entitic vol] 91.1 fL 80.0 - 100.0 fL [facility] Monocytes (Bld) [#/Vol] 0.29 10*3/uL [facility] Monocytes/100 WBC (Bld) 4.8 % [facility] Neutrophils (Bld) [#/Vol] 3.33 10*3/uL [facility] Neutrophils/100 WBC (Bld) 54.9 % [facility] Nucleated RBC (Bld) [#/Vol] NINF [facility] Nucleated RBC/100 WBC (Bld) [Ratio] 0.0 % /100 WBC [facility] Platelet mean volume (Bld) [Entitic vol] 10.9 fL 9.0 - 12.7 fL [facility] Platelets (Bld) [#/Vol] 186 10*3/uL [facility] RBC (Bld) [#/Vol] 4.96 10*6/uL 3.90 - 5.2 0 m/uL [facility] WBC (Bld) [#/Vol] 6.06 10*3/uL [facility] Comprehensive metabolic 2000 panelon 09-11-2023 Albumin [Mass/Vol] 4.3 g/dL 3.9 - 4.9 g/dL [facility] ALP [Catalytic activity/Vol] 63 U/L 34 - 123 U/L [facility] ALT [Catalytic activity/Vol] 10 U/L 7 - 38 U/L [facility] Anion gap [Moles/Vol] 10 mmol/L 8 - 15 mmol/L [facility] AST [Catalytic activity/Vol] 23 U/L 13 - 35 U/L [facility] Bilirubin [Mass/Vol] 0.7 mg/dL 0.2 - 1 .3 mg/dL [facility] Calcium [Mass/Vol] 9.9 mg/dL 8.5 - 10. 2 mg/dL [facility] Chloride [Moles/Vol] 104 mmol/L 98 - 10 7 mmol/L [facility] CO2 [Moles/Vol] 24 mmol/L 22 - 30 mmol/L [facility] Creatinine [Mass/Vol] 0.90 mg/dL 0.58 - 0.96 mg/dL [facility] GFR/1.73 sq M.predicted among non-blacks MDRD (S/P/Bld) [Vol rate/Area] 67 mL/min/{1.73_m2} - PINF [facility] Comment on above: Estimated Glomerular Filtration Rate (eGFR) is calculated using the 2020 CKD-EPI creatinine equation. This equation utilizes serum creatinine, sex, and age as parameters. The creatinine assay has traceable calibration to isotope dilution-mass spectrometry. Refer to KDIGO guidelines for clinical interpretation. In patients with unstable renal function, e.g. those with acute kidney injury, the eGFR may not accurately reflect actual GFR. Glucose [Mass/Vol] 105 mg/dL High 74 - 99 mg/dL [facility] Comment on above: The [place] [employer] (ADA) provides guidance for cutoff values for fasting glucose and random glucose. The ADA defines fasting as no caloric intake for at least 8 hours. Fasting plasma glucose results between 100 to 125 mg/dL indicate increased risk for diabetes (prediabetes). Fasting plasma glucose results greater than or equal to 126 mg/dL meet the criteria for diagnosis of diabetes. In the absence of unequivocal hyperglycemia, results should be confirmed by repeat testing. In a patient with classic symptoms of hyperglycemia or hyperglycemic crisis, random plasma glucose results greater than or equal to 200 mg/dL meet the criteria for diagnosis of diabetes. Reference: Standards of Medical Care in Diabetes 2016, [place] [employer]. Diabetes Care. 2016.39(Suppl 1). Interpretation and review of laboratory results Abnormal [facility] Potassium [Moles/Vol] 4.5 mmol/L 3.7 - 5.1 mmol/L [facility] Protein [Mass/Vol] 7.2 g/dL 6.3 - 8.0 g/dL [facility] Sodium [Moles/Vol] 138 mmol/L 136 - 144 mmol/L [facility] Urea nitrogen [Mass/Vol] 11 mg/dL 7 - 21 mg/dL [facility] LIPID PANEL, NONFASTINGon Cholesterol [Mass/Vol] 163 mg/dL NINF - 200 mg/dL [facility] Comment on above: <200 mg/dL, Desirabl e 200-239 mg/dL, Borderline high >239 mg/dL, High HDL Cholesterol, Nonfasting 68 mg/dL 39 - PINF mg/dL [facility] Comment on above: 40-59 mg/dL, Accepta ble >59 mg/dL, High: Negative risk factor for coronary heart disease <40 mg/dL, Low: Positive risk factor for coronary heart disease Interpretation and review of laboratory results Normal [facility] LDL Cholesterol, Nonfasting 72 mg/dL NINF - 100 mg/dL [facility] Comment on above: <100 mg/dL, Optimal 100-129 mg/dL, Near optimal/above optimal 130-159 mg/dL, Borderline high 160-189 mg/dL, High >189 mg/dL, Very high Secondary prevention optimal LDL Cholesterol levels are recommended to be < 70 mg/dL LDL/HDL Ratio, Nonfasting 1.06 mg/dL NINF - 2.54 mg/dL [facility] Comment on above: Reference: 1. National Cholesterol Education Program ATP III Guideline At-A-Glance Quick Desk Reference: National Heart, Lung, and Blood [place]. National Institutes of Health. 2001: NIH Publication No. 01-3305. 2. An International Atherosclerosis Society position paper: global recommendations for the management of dyslipidemia: executive summary, Atherosclerosis. 2014: 232(2):410-413. Non HDL Cholesterol, Nonfasting 95 mg/dL NINF - 130 mg/dL [facility] Comment on above: <130 mg/dL, Optimal 130-159 mg/dL, Near optimal/above optimal 160-189 mg/dL, Borderline high 190-219 mg/dL, High >219 mg/dL, Very high Secondary prevention optimal non HDL Cholesterol levels are recommended to be <100 mg/dL Total Chol/HDL Ratio, Nonfasting 2.40 mg/dL NINF - 5.10 mg/dL [facility] Triglycerides, Nonfasting 115 mg/dL NINF - 150 mg/dL [facility] Comment on above: <150 mg/dL, Normal 150-199 mg/dL, Borderline high 200-499 mg/dL, High >499 mg/dL, Very high VLDL Cholesterol, Nonfasting 23 mg/dL NINF - 30 mg/dL [facility] No Panel Informationon 09-10 [facility] XR SHOULDER GENERAL 3V OR MO RE AP/TRUE AP/OTHER LEFTon 01-20-2023 [facility] XR Shoulder - left 3 Viewson 01-20-2023 IMPRESSION: 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: JS Transcribe Date/Time: Jan 20 2023 2:38P Dictated by : LIYAH SALAZAR MD This examination was interpreted and the report reviewed and electronically signed by: LIYAH SALAZAR MD on Jan 20 2023 2:39PM [facility] DIVISION OF RADIOLOGY * * *Final Report* * * DATE OF EXAM: Jan 20 2023 2:32PM WOX 5252 - XR SHLDR >/=3V AP/ANNE AP/OTHR LT / PROCEDURE REASON: Acute pain of left shoulder * * * * Physician Interpretation * * * * PROCEDURE: Left shoulder INDICATION: Acute pain of left shoulder .Left upper humerus and anterior shoulder pain x 1 day without known injury TECHNIQUE: XR SHLDR >/=3V AP/ANNE AP/OTHR LT COMPARISON: None FINDINGS: No fractures or dislocations are seen. The glenohumeral and acromioclavicular joints are within normal limits. Subacromial space is maintained. No significant degenerative change is seen. No soft tissue calcifications are seen. Upper ribs are intact. DIVISION OF RADIOLOGY Provider, [facility] - 01/20/2023 * * *Final Report* * * DATE OF EXAM: Jan 20 2023 2:32PM WOX 5252 - XR SHLDR >/=3V AP/ANNE AP/OTHR LT / PROCEDURE REASON: Acute pain of left shoulder * * * * Physician Interpretation * * * * PROCEDURE: Left shoulder INDICATION: Acute pain of left shoulder .Left upper humerus and anterior shoulder pain x 1 day without known injury TECHNIQUE: XR SHLDR >/=3V AP/ANNE AP/OTHR LT COMPARISON: None FINDINGS: No fractures or dislocations are seen. The glenohumeral and acromioclavicular joints are within normal limits. Subacromial space is maintained. No significant degenerative change is seen. No soft tissue calcifications are seen. Upper ribs are intact. IMPRESSION IMPRESSION: 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: PSCB Transcribe Date/Time: Jan 20 2023 2:38P Dictated by : LIYAH SALAZAR MD This examination was interpreted and the report reviewed and electronically signed by: LIYAH SALAZAR MD on Jan 20 2023 2:39PM EST [facility] Radiology Study observation (narrative) [facility] XR Shoulder - left 3 ViewsOr dered By: [facility] Provider on 01-20-2023 [facility] 12 Lead EKGon 01-11-2023 12 Lead EKG [facility] Cardiovascular Services [address] [place] [address] 12 Lead EKG 01/11/23 1608 MR#: [id number] Acct: [id number] Name: SHARITA TRAORE Rep #: [id number] : 1950 72 From: Anni Kaye MD Attending Dr: Status: DEP ER Ordering Dr: Sean Henry DO Date: 01/11/23 Location: ED Sex: F C Admitted: Test Reason : Blood Pressure : / mmHG Vent. Rate : 075 BPM Atrial Rate : 075 BPM P-R Int : 186 ms QRS Dur : 074 ms QT Int : 370 ms P-R-T Axes : 082 -40 071 degrees QTc Int : 413 ms Normal sinus rhythm Left axis deviation Abnormal ECG Confirmed by KRISTAN SEGURA, ELIOT ([id number]), editor greeting card JOSE NAVARRO ([id number]) on 01/13/2023 7:14:36 AM Referred By: Confirmed By:ADEN KAYE MD 01/13/23 0714 Date Anni Kaye MD CC: Dr. Doyle Jett MD; Dr. Sean Henry DO Signed Normal [facility] Absolute lymphocyte countOrd ered By: Sean Henry on 01-11-2023 Lymphocytes Auto (Unsp spec) [#/Vol] 1.79 10*3/uL 0.83-4.51 [facility] Basophil percentageOrdered B y: Sean Henry on 01-11-2023 Basophils/100 WBC (Bld) 0.5 % 0-1 [facility] Bilirubin [Mass/Vol] 1.30 mg/dL 0.20-1.00 [facility] Comment on above: For patients on eltr ombopag therapy, use of Dimension [place] TBIL is not recommended. Chloride [Moles/Vol] 106 mmol/L 98-107 [facility] Eosinophils/100 WBC (Bld) 0.4 % 0-5 [facility] Glucose [Mass/Vol] 103 mg/dL 74-106 [facility] Comment on above: Fasting Glucose resu lt from 100 to 125 mg/dL suggests IMPAIRED HOMEOSTASIS per A.D.A. criteria. Neutrophils (Bld) [#/Vol] 7.1 10*3/uL 2.0-7.7 [facility] Neutrophils/100 WBC (Bld) 75.6 % 47-70 [facility] Potassium [Moles/Vol] 3.7 mmol/L 3.5-5.1 [facility] Protein [Mass/Vol] 7.3 g/dL 6.4-8.2 [facility] Sodium [Moles/Vol] 138 mmol/L 136-145 [facility] WBC (Bld) [#/Vol] 9.4 10*3/uL 4.4-11.0 [facility] Blood erythrocytes count (nu mber/volume)Ordered By: Sean Henry on 01-11-2023 RBC (Bld) [#/Vol] 4.81 10*6/uL 4.2-5.4 [facility] Blood hemoglobin measurement (mass/volume)Ordered By: Sean Henry on 01-11-2023 Hemoglobin (Bld) [Mass/Vol] 13.5 g/dL 12.0-15.0 [facility] Blood lymphocytes/100 leukoc ytesOrdered By: Sean Henry on 01-11-2023 Lymphocytes/100 WBC (Bld) 19.1 % 19-41 [facility] Blood monocytes/100 leukocyt esOrdered By: Sean Henry on 01-11-2023 Monocytes/100 WBC (Bld) 4.1 % 0-10 [facility] Blood platelet mean volumeOr dered By: Sean Henry on 01-11-2023 Platelet mean volume (Bld) [Entitic vol] 10.8 fL 6.2-12.0 [facility] CBC W/Diff, Automatedon 12-25 Absolute Lymph 1.79 X10 3/uL Normal 0.83-4.51 [facility] Comment on above: Performed By: #### L 500.4050, L100.0100, L501.2450, L501.4020 #### [facility] [address] [place], [address] Absolute Neut 7.1 X10 3/uL Normal 2.0-7.7 [facility] Comment on above: Performed By: #### L 500.4050, L100.0100, L501.2450, L501.4020 #### [facility] [address] [place], [address] Basophils/100 WBC (Bld) 0.5 % Normal 0-1 [facility] Comment on above: Performed By: #### L 500.4050, L100.0100, L501.2450, L501.4020 #### [facility] [address] [place], [address] Eosinophils/100 WBC (Bld) 0.4 % Normal 0-5 [facility] Comment on above: Performed By: #### L 500.4050, L100.0100, L501.2450, L501.4020 #### [facility] [address] [place], [address] Erythrocyte distribution width (RBC) [Ratio] 14.1 % Normal 11.6-14.6 [facility] Comment on above: Performed By: #### L 500.4050, L100.0100, L501.2450, L501.4020 #### [facility] [address] [place], [address] Hematocrit (Bld) [Volume fraction] 43.5 % Normal 37-47 [facility] Comment on above: Performed By: #### L 500.4050, L100.0100, L501.2450, L501.4020 #### [facility] [address] [place], [address] Hemoglobin (Bld) [Mass/Vol] 13.5 g/dL Normal 12.0-15.0 [facility] Comment on above: Performed By: #### L 500.4050, L100.0100, L501.2450, L501.4020 #### [facility] [address] [place], [address] IG% 0.300 Normal 0.0-0.9 [facility] Comment on above: Result Comment: IG% - Immature Granulocytes (promyelocytes, myelocytes and metamyelocytes) > 1% indicates that a LEFT SHIFT is Present. Performed By: #### L 500.4050, L100.0100, L501.2450, L501.4020 #### [facility] [address] [place], [address] Lymphocytes/100 WBC (Bld) 19.1 % Normal 19-41 [facility] Comment on above: Performed By: #### L 500.4050, L100.0100, L501.2450, L501.4020 #### [facility] [address] [place], [address] MCH (RBC) [Entitic mass] 28.1 pg Normal 27.0-32.0 [facility] Comment on above: Performed By: #### L 500.4050, L100.0100, L501.2450, L501.4020 #### [facility] [address] [place], [address] MCHC (RBC) [Mass/Vol] 31.0 g/dL Low 32-36 [facility] Comment on above: Performed By: #### L 500.4050, L100.0100, L501.2450, L501.4020 #### [facility] [address] [place], [address] MCV (RBC) [Entitic vol] 90.4 fL Normal 81-99 [facility] Comment on above: Performed By: #### L 500.4050, L100.0100, L501.2450, L501.4020 #### [facility] [address] [place], [address] Monocytes/100 WBC (Bld) 4.1 % Normal 0-10 [facility] Comment on above: Performed By: #### L 500.4050, L100.0100, L501.2450, L501.4020 #### [facility] [address] [place], [address] Neutrophils/100 WBC (Bld) 75.6 % High 47-70 [facility] Comment on above: Performed By: #### L 500.4050, L100.0100, L501.2450, L501.4020 #### [facility] [address] [place], [address] Nucleated RBC (Bld) [#/Vol] 0 10*3/uL Normal 0-5 [facility] Comment on above: Performed By: #### L 500.4050, L100.0100, L501.2450, L501.4020 #### [facility] [address] [place], [address] Platelet mean volume (Bld) [Entitic vol] 10.8 fL Normal 6.2-12.0 [facility] Comment on above: Performed By: #### L 500.4050, L100.0100, L501.2450, L501.4020 #### [facility] [address] [place], [address] Platelets (Bld) [#/Vol] 163 10*3/uL Normal 150-450 [facility] Comment on above: Performed By: #### L 500.4050, L100.0100, L501.2450, L501.4020 #### [facility] [address] [place], [address] RBC (Bld) [#/Vol] 4.81 10*6/uL Normal 4.2-5.4 [facility] Comment on above: Performed By: #### L 500.4050, L100.0100, L501.2450, L501.4020 #### [facility] [address] [place], [address] RDW SD 47.0 fl High 35.1-43.9 [facility] Comment on above: Performed By: #### L 500.4050, L100.0100, L501.2450, L501.4020 #### [facility] [address] [place], [address] WBC (Bld) [#/Vol] 9.4 10*3/uL Normal 4.4-11.0 [facility] Comment on above: Performed By: #### L 500.4050, L100.0100, L501.2450, L501.4020 #### [facility] [address] [place], [address] CT Chest, Abd, Pel w/Contras ton 01-11-2023 CT Chest, Abd, Pel w/Contrast [facility] Imaging Services [address] [place] [address] CT Chest, Abd, Pel w/Contrast MR#: [id number] Acct: [id number] Name: SHARITA TRAORE Rep #: [id number] : 1950 F 72 From: Tigre Silverio MD PCP: Dr. Doyle Jett MD Status: [facility] ER Study: CT Chest, Abd, Pel w/Contrast Date of Exam: Exam# [id number] Ordering Dr: Sean Henry DO [id number] EXAM: CT chest with IV contrast. HISTORY: abdominal pain TECHNIQUE: Intravenous contrast was administered. A radiation dose optimization technique was used for this scan. COMPARISON: CT chest October 21, 2022. LIMITATIONS: None. LUNGS: Mild to moderate centrilobular emphysematous changes. 7 mm nodule in the right lung apex is grossly stable in size and may represent scarring as previously described. No confluent airspace disease. HEART: Normal. PLEURA: Normal. MEDIASTINUM: Normal. AORTA: Thoracic aorta is normal caliber. BONES/SOFT TISSUES: No acute fracture. OTHER: Few thyroid nodules. The largest measures 1.2 cm.. CONCLUSION: Emphysema. No acute pulmonary disease. EXAM: CT abdomen and pelvis with contrast. HISTORY: abdominal pain TECHNIQUE: CT Chest Abdomen And Pelvis W/ Contrast Injection. A radiation dose optimization technique was used for this scan. COMPARISON: None. LIMITATIONS: None. LIVER: Normal. GALLBLADDER: 1.2 cm gallstone. No inflammatory change. BILE DUCTS: Normal. PANCREAS: Normal. SPLEEN: Normal. ADRENAL GLANDS: Normal. KIDNEYS/URETERS/VENKATA DDER: Cyst in the right kidney. No hydronephrosis. AORTA: Atherosclerotic calcification of the abdominal aorta. Retroperitoneal lymph nodes are borderline enlarged. BOWEL/MESENTERY: Postsurgical changes after colectomy. Ileostomy in the right lower quadrant. No small bowel obstruction. APPENDIX: Normal. PERITONEUM: Normal. REPRODUCTIVE ORGANS: Normal. BONES/SOFT TISSUES: Multilevel mild compression deformity in the lumbar spine. OTHER: None. CONCLUSION: Postsurgical changes. No small bowel obstruction. Gallstone. Electronically Signed: Tigre Silverio MD at 18:40 EDT , CT/CT Chest, Abd, Pel w/Contrast IMPRESSION: undefined CC: Dr. Doyle Jett MD; Dr. Sean Henry DO Metal Machinist: Signed Normal [facility] Comprehensive Metabolic Prof ilon 01-11-2023 Albumin [Mass/Vol] 3.4 g/dL Normal 3.2-5.0 [facility] Comment on above: Order Comment: 'TROP ' Serial specimen #1, #2 or #3: 1 Performed By: #### L 500.4050, L100.0100, L501.2450, L501.4020 #### [facility] [address] [place], [address] Albumin/Globulin [Mass ratio] 0.9 {ratio} Normal 0.9-2.4 [facility] Comment on above: Order Comment: 'TROP ' Serial specimen #1, #2 or #3: 1 Performed By: #### L 500.4050, L100.0100, L501.2450, L501.4020 #### [facility] [address] [place], [address] ALK P 60 U/L Normal 45-117 [facility] Comment on above: Order Comment: 'TROP ' Serial specimen #1, #2 or #3: 1 Performed By: #### L 500.4050, L100.0100, L501.2450, L501.4020 #### [facility] [address] [place], [address] ALT [Catalytic activity/Vol] 12 U/L Low 13-56 [facility] Comment on above: Order Comment: 'TROP ' Serial specimen #1, #2 or #3: 1 Performed By: #### L 500.4050, L100.0100, L501.2450, L501.4020 #### [facility] [address] [place], [address] AST [Catalytic activity/Vol] 12 U/L Low 15-37 [facility] Comment on above: Order Comment: 'TROP ' Serial specimen #1, #2 or #3: 1 Performed By: #### L 500.4050, L100.0100, L501.2450, L501.4020 #### [facility] [address] [place], [address] Bilirubin [Mass/Vol] 1.30 mg/dL High 0.20-1.00 [facility] Comment on above: Order Comment: 'TROP ' Serial specimen #1, #2 or #3: 1 Result Comment: For patients on eltrombopag therapy, use of Dimension [place] TBIL is not recommended. Performed By: #### L 500.4050, L100.0100, L501.2450, L501.4020 #### [facility] [address] [place], [address] BUN/CRE 11.0 RATIO Normal 10-20 [facility] Comment on above: Order Comment: 'TROP ' Serial specimen #1, #2 or #3: 1 Performed By: #### L 500.4050, L100.0100, L501.2450, L501.4020 #### [facility] [address] [place], [address] CA,Total 9.0 mg/dL Normal 8.5-10.1 [facility] Comment on above: Order Comment: 'TROP ' Serial specimen #1, #2 or #3: 1 Performed By: #### L 500.4050, L100.0100, L501.2450, L501.4020 #### [facility] [address] [place], [address] Chloride [Moles/Vol] 106 mmol/L Normal 98-107 [facility] Comment on above: Order Comment: 'TROP ' Serial specimen #1, #2 or #3: 1 Performed By: #### L 500.4050, L100.0100, L501.2450, L501.4020 #### [facility] [address] [place], [address] CO2 [Moles/Vol] 25.0 mmol/L Normal 21.0-32.0 [facility] Comment on above: Order Comment: 'TROP ' Serial specimen #1, #2 or #3: 1 Performed By: #### L 500.4050, L100.0100, L501.2450, L501.4020 #### [facility] [address] [place], [address] Creatinine [Mass/Vol] 0.91 mg/dL Normal 0.55-1.02 [facility] Comment on above: Order Comment: 'TROP ' Serial specimen #1, #2 or #3: 1 Result Comment: The validity of the calculated GFR GFRAA in patients over 70 years has not been determined. Clinical correlation is essential. Performed By: #### L 500.4050, L100.0100, L501.2450, L501.4020 #### [facility] [address] [place], [address] ECRCL 49.25 ml/min Normal [facility] Comment on above: Order Comment: 'TROP ' Serial specimen #1, #2 or #3: 1 Performed By: #### L 500.4050, L100.0100, L501.2450, L501.4020 #### [facility] [address] [place], [address] EST GFR - AA 78 mL/min Normal >60 [facility] Comment on above: Order Comment: 'TROP ' Serial specimen #1, #2 or #3: 1 Result Comment: Afri can [place] GFR Calc Performed By: #### L 500.4050, L100.0100, L501.2450, L501.4020 #### [facility] [address] [place], [address] GAP 7 Normal 5-15 [facility] Comment on above: Order Comment: 'TROP ' Serial specimen #1, #2 or #3: 1 Performed By: #### L 500.4050, L100.0100, L501.2450, L501.4020 #### [facility] [address] [place], [address] GFR/1.73 sq M.predicted among non-blacks MDRD (S/P/Bld) [Vol rate/Area] 64 mL/min/{1.73_m2} Normal >60 [facility] Comment on above: Order Comment: 'TROP ' Serial specimen #1, #2 or #3: 1 Result Comment: Non- GFR Calc Performed By: #### L 500.4050, L100.0100, L501.2450, L501.4020 #### [facility] [address] [place], [address] Globulin (S) [Mass/Vol] 3.9 g/dL Normal 2.2-4.2 [facility] Comment on above: Order Comment: 'TROP ' Serial specimen #1, #2 or #3: 1 Performed By: #### L 500.4050, L100.0100, L501.2450, L501.4020 #### [facility] [address] [place], [address] Glucose [Mass/Vol] 103 mg/dL Normal 74-106 [facility] Comment on above: Order Comment: 'TROP ' Serial specimen #1, #2 or #3: 1 Result Comment: Fast ing Glucose result from 100 to 125 mg/dL suggests IMPAIRED HOMEOSTASIS per A.D.A. criteria. Performed By: #### L 500.4050, L100.0100, L501.2450, L501.4020 #### [facility] [address] [place], [address] Potassium [Moles/Vol] 3.7 mmol/L Normal 3.5-5.1 [facility] Comment on above: Order Comment: 'TROP ' Serial specimen #1, #2 or #3: 1 Performed By: #### L 500.4050, L100.0100, L501.2450, L501.4020 #### [facility] [address] [place], [address] Sodium [Moles/Vol] 138 mmol/L Normal 136-145 [facility] Comment on above: Order Comment: 'TROP ' Serial specimen #1, #2 or #3: 1 Performed By: #### L 500.4050, L100.0100, L501.2450, L501.4020 #### [facility] [address] [place], [address] T PROT 7.3 g/dL Normal 6.4-8.2 [facility] Comment on above: Order Comment: 'TROP ' Serial specimen #1, #2 or #3: 1 Performed By: #### L 500.4050, L100.0100, L501.2450, L501.4020 #### [facility] [address] [place], [address] Urea nitrogen [Mass/Vol] 10 mg/dL Normal 7-18 [facility] Comment on above: Order Comment: 'TROP ' Serial specimen #1, #2 or #3: 1 Performed By: #### L 500.4050, L100.0100, L501.2450, L501.4020 #### [facility] [address] [place], [address] Determination of erythrocyte mean corpuscular volume (MCV)Ordered By: Sean Henry on 01-11-2023 MCV (RBC) [Entitic vol] 90.4 fL 81-99 [facility] Emergency Department Summary on 01-11-2023 Emergency Department Summary [facility] Medical Records Department [address] [place] [address] Emergency Department Summary 01/11/23 MR#: [id number] Acct: [id number] Name: SHARITA TRAORE Rep #: [id number] : 1950 72 From: Sean Henry DO PCP: Dr. Doyle Jett MD Status:DEP ER Location: ED HPI HPI - GI History of Present Illness Chief Complaint: Foreign Body Narrative Narrative: 72-year-old female presenting for evaluation. Apparently on Monday she swallowed a large calcium pill which she felt got stuck in the lower part of her neck. She started to have burning sensation in this area and it slowly settled into the chest down in her esophageal region. She describes it as burning as well. Denies a chest pressure or sharp pruritic pain. She states he is not short of breath or lightheaded. Patient states she is now having some pain in her lower abdomen around her right lower quadrant ostomy site. She states she has a history of colitis in the past. 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 She states the doctor who did the surgery did not tell her what kind of colitis it was. She states he told her that there were many kinds of colitis. Eventually she went back and had her rectum removed. He denies any fevers or chills. She is complaining of lower abdominal pain around her ostomy site. [facility] Medical History Abnormal mammogram of left breast Back pain Chest pain Colitis GERD (gastroesophageal reflux disease) Hand pain High cholesterol History of stress test Hyperglycemia Hyperlipidemia Injury of back Lumbar disc narrowing Midline cystocele Osteopenia Osteoporosis Post-menopausal Pulmonary nodule Renal cyst Sacroiliitis Situational depression Smoker Tobacco abuse counseling Trigger finger of right hand Wears dentures Wears glasses Home Medications cholecalciferol (vitamin D3) 125 mcg (5,000 unit) capsule 125 mcg PO DAILY 06/07/21 [History Last Taken Unknown] zinc acetate 50 mg (zinc) capsule (Galzin) 50 mg PO MOWEFR 06/07/21 [History Last Taken Unknown] clotrimazole-betame thasone 1 %-0.05 % topical cream 1 applic topical BID #15 grams 03/03/22 [Rx Last Taken Unknown] ostomy supplies (Skin Prep Wipes) #50 ea 03/03/22 [Rx Last Taken Unknown] pravastatin 20 mg tablet 20 mg PO QHS #90 tabs 07/28/22 [Rx Last Taken Unknown] sucralfate 100 mg/mL oral suspension (Carafate) 10 ml PO BID PRN epigastric pain/dyspepsia #400 mL 01/11/23 [Rx Last Taken Unknown] Allergy/AdvReac Type Severity Reaction Status Date / Time No Known Allergies Allergy Verified 01/11/23 14:51 Family History Father COPD (chronic obstructive pulmonary disease) Mother Myocardial infarction Sister Cancer Lung Brother Cancer Throat Surgical History History of hand surgery History of rectal surgery Hx of colonoscopy S/P colectomy Social History Smoking Status: Current every day smoker tobacco type: cigarettes alcohol intake: never ROS ROS ED Constitutional Constitutional ED: Denies chills, fever(s) or sweats Eyes Eyes: Denies blurry vision or change in vision ENT ENT ED: Denies ear pain or sore throat Cardiovascular Cardiovascular: Reports chest pain; Denies palpitations or racing heartbeat Respiratory/Chest Respiratory/Chest: Denies cough, dyspnea or sputum Gastrointestinal Gastrointestinal: Reports abdominal pain; Denies constipation, diarrhea, nausea or vomiting Genitourinary Genitourinary ED: Denies dysuria, hematuria or urinary frequency Musculoskeletal Musculoskeletal: Denies arthralgias, myalgias or neck pain Integumentary Denies abscess, Abrasions or rash Neurologic Neurologic: Denies headache(s), paresthesias or weakness Psychiatric Psychiatric: Denies anxiety, depression, suicidal ideation or suicidal thoughts Endocrine Endocrinology: Denies polydipsia or polyuria EXAM Physical Exam Const Vital Signs: 01/11/23 14:49 01/11/23 15:24 01/11/23 20:03 Temperature 98.7 F Temperature Source Temporal Pulse Rate 100 82 Respiratory Rate 16 18 Respiratory Effort Normal Respiratory Pattern Normal Blood Pressure 133/97 H Blood Pressure Mean 109 Pulse Ox 97 100 Oxygen Delivery Method Room Air Positive well nourished General Appearance ED: NAD HEENT Reports moist mucous membranes normocephalic and atraumatic Eyes PERRL and EOMs intact bilaterally Neck no lymphadenopathy Resp normal respiratory effort and clear to auscultation bilaterally Cardio regular rate and regular rhythm GI GI Narrative: Tenderness to palpation in the right lower quadran (more content not included)... Normal [facility] Hematocrit Auto (Bld) [Volum e fraction]Ordered By: Sean Henry on 01-11-2023 Hematocrit (Bld) [Volume fraction] 43.5 % 37-47 [facility] L501.4020on 01-11-2023 TROPONIN-I HS 6 pg/mL Normal 3.0-54.0 [facility] Comment on above: Order Comment: 'TROP ' Serial specimen #1, #2 or #3: 1 Result Comment: Pito chan Note: New Test Units and Gender Specific Reference Ranges. For more information see Policy Stat Procedure [place] High Sensitivity Troponin (TNIH) and attachments. Performed By: #### L 500.4050, L100.0100, L501.2450, L501.4020 #### [facility] [address] [place], [address] Laboratory - Chemistry and C hemistry - challengeOrdered By: Sean Henry on 01-11-2023 ALP [Catalytic activity/Vol] 60 U/L 45-117 [facility] ALT [Catalytic activity/Vol] 12 U/L 13-56 [facility] CO2 [Moles/Vol] 25.0 mmol/L 21.0-32.0 [facility] Globulin (S) [Mass/Vol] 3.9 g/dL 2.2-4.2 [facility] Lipase [Catalytic activity/Vol] 20 U/L 13-75 [facility] Comment on above: Please note:LIPASE r evised reference range effective 22. New Lipase methodology. Expected to produce lower values than the previous assay method. NEW Reference Range: 13 - 75 U/L Urea nitrogen/Creatinine [Mass ratio] 11.0 mg/mg 10-20 [facility] - Hematology and Cell countsOrdered By: Sean Henry on 01-11-2023 Erythrocyte distribution width (RBC) [Entitic vol] 47.0 fL 35.1-43.9 [facility] Erythrocyte distribution width (RBC) [Ratio] 14.1 % 11.6-14.6 [facility] Immature granulocytes/100 WBC (Bld) 0.300 % 0.0-0.9 [facility] Comment on above: IG% - Immature Granu locytes (promyelocytes, myelocytes and metamyelocytes) > 1% indicates that a LEFT SHIFT is Present. MCH (RBC) [Entitic mass] 28.1 pg 27.0-32.0 [facility] Nucleated RBC/100 WBC (Bld) [Ratio] 0 % 0-5 [facility] Lipaseon 01-11-2023 Lipase [Catalytic activity/Vol] 20 U/L Normal 13-75 [facility] Comment on above: Order Comment: 'TROP ' Serial specimen #1, #2 or #3: 1 Result Comment: Pito chan note: LIPASE revised reference range effective 22. New Lipase methodology. Expected to produce lower values than the previous assay method. NEW Reference Range: 13 - 75 U/L Performed By: #### L 500.4050, L100.0100, L501.2450, L501.4020 #### [facility] [address] [place], [address] MCHC Auto (RBC) [Mass/Vol]Or dered By: Sean Henry on 01-11-2023 MCHC (RBC) [Mass/Vol] 31.0 g/dL 32-36 [facility] No Panel InformationOrdered By: Sean Henry on 01-11-2023 Estimated Creatinine Clearance Calc 49.25 ml/min [facility] Estimated GFR (MDRD) Amer 78 mL/min >60 [facility] Comment on above: GFR Calc Estimated GFR (MDRD) Non-Af Amer 64 mL/min >60 [facility] Comment on above: Non- GFR Calc Troponin I High Sensitivity 6 pg/mL 3.0-54.0 [facility] Comment on above: Please Note: New Carina t Units and Gender Specific Reference Ranges. For more information see Policy Stat Procedure [place] High Sensitivity Troponin (TNIH) and attachments. Platelets bldOrdered By: Trung Henry on 01-11-2023 Platelets (Bld) [#/Vol] 163 10*3/uL 150-450 [facility] Serum or plasma albumin jalil urement (mass/volume)Ordered By: Sean Henry on 01-11-2023 Albumin [Mass/Vol] 3.4 g/dL 3.2-5.0 [facility] Serum or plasma albumin/glob ulin mass ratioOrdered By: Sean Henry on 01-11-2023 Albumin/Globulin [Mass ratio] 0.9 {ratio} 0.9-2.4 [facility] Serum or plasma calcium jalil urement (mass/volume)Ordered By: Sean Henry on 01-11-2023 Calcium [Mass/Vol] 9.0 mg/dL 8.5-10.1 [facility] Serum or plasma creatinine m easurement (mass/volume)Ordered By: Sean Henry on 01-11-2023 Creatinine [Mass/Vol] 0.91 mg/dL 0.55-1.02 [facility] Comment on above: The validity of the calculated GFR & GFRAA in patients over 70 years has not been determined. Clinical correlation is essential. Serum or plasma urea nitroge n measurement (mass/volume)Ordered By: Sean Henry on 01-11-2023 Urea nitrogen [Mass/Vol] 10 mg/dL 7-18 [facility] Thin prep Papanicolaou smear with manual screeningOrdered By: Sean Henry on 01-11-2023 Thin prep Papanicolaou smear with manual screening 12 U/L 15-37 [facility] Thin prep Papanicolaou smear with manual screening 7 5-15 [facility] Urinalysis, Completeon 01-11 BACTERIA Normal None Seen [facility] Comment on above: Order Comment: CLEAN CATCH Result Comment: NO S PECIMEN COLLECTED Performed By: #### L [id number] #### [facility] [address] [place], [place], [id number] BILIRUBIN URINE Normal Negative [facility] Comment on above: Order Comment: CLEAN CATCH Result Comment: NO S PECIMEN COLLECTED Performed By: #### L [id number] #### [facility] [address] [place], [address] Clarity (U) Normal Clear [facility] Comment on above: Order Comment: CLEAN CATCH Result Comment: NO S PECIMEN COLLECTED Performed By: #### L 400.0001 #### [facility] [address] [place], [address] Color (U) Normal Yellow [facility] Comment on above: Order Comment: CLEAN CATCH Result Comment: NO S PECIMEN COLLECTED Performed By: #### L [id number] #### [facility] [address] [place], [address] EPI,SQUAMOUS Normal 5-10 [facility] Comment on above: Order Comment: CLEAN CATCH Result Comment: NO S PECIMEN COLLECTED Performed By: #### L [id number] #### [facility] [address] [place], [address] GLUCOSE, UR Normal Normal [facility] Comment on above: Order Comment: CLEAN CATCH Result Comment: NO S PECIMEN COLLECTED Performed By: #### L [id number] #### [facility] [address] [place], [address] KETONE UR Normal Negative [facility] Comment on above: Order Comment: CLEAN CATCH Result Comment: NO S PECIMEN COLLECTED Performed By: #### L [id number] #### [facility] [address] [place], [address] LEUK ESTERASE Normal Negative [facility] Comment on above: Order Comment: CLEAN CATCH Result Comment: NO S PECIMEN COLLECTED Performed By: #### L [id number] #### [facility] [address] [place], [address] Mucus Ql (Urine sed) Normal [facility] Comment on above: Order Comment: CLEAN CATCH Result Comment: NO S PECIMEN COLLECTED Performed By: #### L [id number] #### [facility] [address] [place], [address] Nitrite Ql (U) Normal Negative [facility] Comment on above: Order Comment: CLEAN CATCH Result Comment: NO S PECIMEN COLLECTED Performed By: #### L [id number] #### [facility] [address] [place], [address] OCCULT BLOOD-UR Normal Negative [facility] Comment on above: Order Comment: CLEAN CATCH Result Comment: NO S PECIMEN COLLECTED Performed By: #### L [id number] #### [facility] [address] [place], [address] pH UR Normal 5.0 - 8.0 [facility] Comment on above: Order Comment: CLEAN CATCH Result Comment: NO S PECIMEN COLLECTED Performed By: #### L [id number] #### [facility] [address] [place], [address] PROT DIPSTX Normal Negative [facility] Comment on above: Order Comment: CLEAN CATCH Result Comment: NO S PECIMEN COLLECTED Performed By: #### L [id number] #### [facility] [address] [place], [address] RBC Normal 0-5 [facility] Comment on above: Order Comment: CLEAN CATCH Result Comment: NO S PECIMEN COLLECTED Performed By: #### L [id number] #### [facility] [address] [place], [address] SP.GR. DIPSTX Normal 1.002-1.030 [facility] Comment on above: Order Comment: CLEAN CATCH Result Comment: NO S PECIMEN COLLECTED Performed By: #### L [id number] #### [facility] [address] [place], [address] UR Preservative Normal [facility] Comment on above: Order Comment: CLEAN CATCH Result Comment: NO S PECIMEN COLLECTED Performed By: #### L [id number] #### [facility] [address] [place], [address] UROBILI Normal Normal [facility] Comment on above: Order Comment: CLEAN CATCH Result Comment: NO S PECIMEN COLLECTED Performed By: #### L [id number] #### [facility] [address] [place], [address] WBC Normal 0-5 [facility] Comment on above: Order Comment: CLEAN CATCH Result Comment: NO S PECIMEN COLLECTED Performed By: #### L [id number] #### [facility] [address] [place], [address] [facility] 09-26-2022 [facility] Comprehensive metabolic 2000 panelon 09-09-2022 Albumin [Mass/Vol] 4.3 g/dL 3.9 - 4.9 g/dL [facility] ALP [Catalytic activity/Vol] 57 U/L 34 - 123 U/L [facility] ALT [Catalytic activity/Vol] 11 U/L 7 - 38 U/L [facility] Anion gap [Moles/Vol] 13 mmol/L 9 - 18 mmol/L [facility] AST [Catalytic activity/Vol] 16 U/L 13 - 35 U/L [facility] Bilirubin [Mass/Vol] 0.5 mg/dL 0.2 - 1 .3 mg/dL [facility] Calcium [Mass/Vol] 9.9 mg/dL 8.5 - 10. 2 mg/dL [facility] Chloride [Moles/Vol] 106 mmol/L High 97 - 10 5 mmol/L [facility] CO2 [Moles/Vol] 22 mmol/L 22 - 30 mmol/L [facility] Creatinine [Mass/Vol] 0.97 mg/dL High 0.58 - 0.96 mg/dL [facility] Estimated Glomerular Filtration Rate 61 mL/min/1.73m >=60 mL/min/1.73m [facility] Glucose [Mass/Vol] 87 mg/dL 74 - 99 mg/dL [facility] Potassium [Moles/Vol] 4.4 mmol/L 3.7 - 5.1 mmol/L [facility] Protein [Mass/Vol] 7.3 g/dL 6.3 - 8.0 g/dL [facility] Sodium [Moles/Vol] 141 mmol/L 136 - 144 mmol/L [facility] Urea nitrogen [Mass/Vol] 9 mg/dL 7 - 21 mg/dL [facility] LIPID PANEL, NONFASTINGon Cholesterol [Mass/Vol] 204 mg/dL High <200 mg/dL Cl [facility] HDL Cholesterol, Nonfasting 65 mg/dL >39 mg/dL [facility] LDL Cholesterol, Nonfasting 112 mg/dL High <100 mg/dL [facility] LDL/HDL Ratio, Nonfasting 1.72 mg/dL <2.54 mg/dL [facility] Non HDL Cholesterol, Nonfasting 139 mg/dL High <130 mg/dL [facility] Total Chol/HDL Ratio, Nonfasting 3.14 mg/dL <5.10 mg/dL [facility] Triglycerides, Nonfasting 134 mg/dL <150 mg/dL [facility] VLDL Cholesterol, Nonfasting 27 mg/dL <30 mg/dL [facility] CBC W Auto Differential pane l (Bld)on 09-08-2022 Basophils (Bld) [#/Vol] 0.07 10*3/uL <0.11 k/uL [facility] Basophils/100 WBC (Bld) 1.1 % [facility] Differential cell count method Nom (Bld) Auto [facility] Eosinophils (Bld) [#/Vol] 0.05 10*3/uL <0.46 k/uL [facility] Eosinophils/100 WBC (Bld) 0.8 % [facility] Erythrocyte distribution width (RBC) [Ratio] 14.0 % 11.5 - 15.0 % [facility] Hematocrit (Bld) [Volume fraction] 46.3 % High 36.0 - 46.0 % [facility] Hemoglobin (Bld) [Mass/Vol] 15.1 g/dL 11.5 - 15.5 g/dL [facility] Immature granulocytes (Bld) [#/Vol] <0.10 k/uL [facility] Immature granulocytes/100 WBC (Bld) 0.2 % [facility] Lymphocytes (Bld) [#/Vol] 2.66 10*3/uL 1.00 - 4.00 k/uL [facility] Lymphocytes/100 WBC (Bld) 41.8 % [facility] MCH (RBC) [Entitic mass] 29.5 pg 26.0 - 34.0 pg [facility] MCHC (RBC) [Mass/Vol] 32.6 g/dL 30.5 - 36.0 g/dL [facility] MCV (RBC) [Entitic vol] 90.6 fL 80.0 - 100.0 fL [facility] Monocytes (Bld) [#/Vol] 0.27 10*3/uL <0.87 k/uL [facility] Monocytes/100 WBC (Bld) 4.2 % [facility] Neutrophils (Bld) [#/Vol] 3.30 10*3/uL 1.45 - 7.50 k/uL [facility] Neutrophils/100 WBC (Bld) 51.9 % [facility] Nucleated RBC (Bld) [#/Vol] <0.01 k/uL [facility] Nucleated RBC/100 WBC (Bld) [Ratio] 0.0 /100 WBC [facility] Platelet mean volume (Bld) [Entitic vol] 10.9 fL 9.0 - 12.7 fL [facility] Platelets (Bld) [#/Vol] 212 10*3/uL 150 - 400 k/uL [facility] RBC (Bld) [#/Vol] 5.11 10*6/uL 3.90 - 5.2 0 m/uL [facility] WBC (Bld) [#/Vol] 6.36 10*3/uL 3.70 - 11. 00 k/uL [facility] Basophil percentageon 2021 Chloride [Moles/Vol] 109 mmol/L 98-107 [facility] Work Phone: Glucose [Mass/Vol] 104 mg/dL 74-106 [facility] Work Phone: Comment on above: Fasting Glucose resu lt from 100 to 125 mg/dL suggests IMPAIRED HOMEOSTASIS per A.D.A. criteria. Potassium [Moles/Vol] 4.1 mmol/L 3.5-5.1 [facility] Work Phone: Sodium [Moles/Vol] 143 mmol/L 136-145 [facility] Work Phone: Laboratory - Chemistry and C hemistry - challengeon 10-04-2021 CO2 [Moles/Vol] 28.0 mmol/L 21.0-32.0 [facility] Work Phone: Urea nitrogen/Creatinine [Mass ratio] 9.7 mg/mg 10-20 [facility] Work Phone: No Panel Informationon 10-04 Estimated GFR (MDRD) Amer 76 mL/min >60 [facility] Work Phone: Comment on above: GFR Calc Estimated GFR (MDRD) Non-Af Amer 63 mL/min >60 [facility] Work Phone: Comment on above: Non- GFR Calc Serum or plasma calcium jalil urement (mass/volume)on 10-04-2021 Calcium [Mass/Vol] 9.2 mg/dL 8.5-10.1 [facility] Work Phone: Serum or plasma creatinine m easurement (mass/volume)on 10-04-2021 Creatinine [Mass/Vol] 0.93 mg/dL 0.55-1.02 [facility] Work Phone: Comment on above: The validity of the calculated GFR & GFRAA in patients over 70 years has not been determined. Clinical correlation is essential. Serum or plasma urea nitroge n measurement (mass/volume)on 10-04-2021 Urea nitrogen [Mass/Vol] 9 mg/dL 7-18 [facility] Work Phone: Thin prep Papanicolaou smear with manual screeningon 10-04-2021 Thin prep Papanicolaou smear with manual screening 6 5-15 [facility] Work Phone: Absolute lymphocyte counton 06-07-2021 Lymphocytes Auto (Unsp spec) [#/Vol] 2.12 10*3/uL 0.83-4.51 [facility] Work Phone: Basophil percentageon 2021 Basophils/100 WBC (Bld) 0.8 % 0-1 [facility] Work Phone: Bilirubin [Mass/Vol] 0.60 mg/dL 0.20-1.00 [facility] Work Phone: Comment on above: For patients on eltr ombopag therapy, use of Dimension [place] TBIL is not recommended. Chloride [Moles/Vol] 108 mmol/L 98-107 [facility] Work Phone: Cholesterol [Mass/Vol] 194 mg/dL <200 [facility] Work Phone: Comment on above: <200 mg/dL Desirable 200-240 mg/dL Borderline >240 mg/dL High Risk Eosinophils/100 WBC (Bld) 0.9 % 0-5 [facility] Work Phone: Glucose [Mass/Vol] 95 mg/dL 74-106 [facility] Work Phone: Neutrophils (Bld) [#/Vol] 3.9 10*3/uL 2.0-7.7 [facility] Work Phone: Neutrophils/100 WBC (Bld) 60.9 % 47-70 [facility] Work Phone: Potassium [Moles/Vol] 3.8 mmol/L 3.5-5.1 [facility] Work Phone: Protein [Mass/Vol] 7.4 g/dL 6.4-8.2 [facility] Work Phone: Sodium [Moles/Vol] 141 mmol/L 136-145 [facility] Work Phone: Triglyceride [Mass/Vol] 126 mg/dL <199 [facility] Work Phone: Comment on above: The drugs N-Acetylcy steine and Metamizole may falsely depress this assay.Serum Triglycerides Reference Interval Normal <150 mg/dL Borderline high 150 - 199 mg/dL High 200 - 499 mg/dL Very High > or = 500 mg/dL WBC (Bld) [#/Vol] 6.5 10*3/uL 4.4-11.0 [facility] Work Phone: Blood erythrocytes count (nu mber/volume)on 06-07-2021 RBC (Bld) [#/Vol] 4.85 10*6/uL 4.2-5.4 [facility] Work Phone: Blood hemoglobin measurement (mass/volume)on 06-07-2021 Hemoglobin (Bld) [Mass/Vol] 14.4 g/dL 12.0-15.0 [facility] Work Phone: Blood lymphocytes/100 leukoc yteson 06-07-2021 Lymphocytes/100 WBC (Bld) 32.8 % 19-41 [facility] Work Phone: Blood monocytes/100 leukocyt eson 06-07-2021 Monocytes/100 WBC (Bld) 4.3 % 0-10 [facility] Work Phone: Blood platelet mean volumeon 06-07-2021 Platelet mean volume (Bld) [Entitic vol] 11.0 fL 6.2-12.0 [facility] Work Phone: Determination of erythrocyte mean corpuscular volume (MCV)on 06-07-2021 MCV (RBC) [Entitic vol] 92.6 fL 81-99 [facility] Work Phone: Hematocrit Auto (Bld) [Volum e fraction]on 06-07-2021 Hematocrit (Bld) [Volume fraction] 44.9 % 37-47 [facility] Work Phone: Laboratory - Chemistry and C hemistry - challengeon 06-07-2021 ALP [Catalytic activity/Vol] 57 U/L 45-117 [facility] Work Phone: ALT [Catalytic activity/Vol] 13 U/L 13-56 [facility] Work Phone: CO2 [Moles/Vol] 29.0 mmol/L 21.0-32.0 [facility] Work Phone: Globulin (S) [Mass/Vol] 3.5 g/dL 2.2-4.2 [facility] Work Phone: Urea nitrogen/Creatinine [Mass ratio] 12.4 mg/mg 10-20 [facility] Work Phone: Laboratory - Hematology and Cell countson 06-07-2021 Erythrocyte distribution width (RBC) [Entitic vol] 46.6 fL 35.1-43.9 [facility] Work Phone: Erythrocyte distribution width (RBC) [Ratio] 13.7 % 11.6-14.6 [facility] Work Phone: Immature granulocytes/100 WBC (Bld) 0.300 % 0.0-0.9 [facility] Work Phone: Comment on above: IG% - Immature Granu locytes (promyelocytes, myelocytes and metamyelocytes) > 1% indicates that a LEFT SHIFT is Present. MCH (RBC) [Entitic mass] 29.7 pg 27.0-32.0 [facility] Work Phone: Nucleated RBC/100 WBC (Bld) [Ratio] 0 % 0-5 [facility] Work Phone: MCHC Auto (RBC) [Mass/Vol]on 06-07-2021 MCHC (RBC) [Mass/Vol] 32.1 g/dL 32-36 [facility] Work Phone: No Panel Informationon 06-07 Estimated GFR (MDRD) Amer 90 mL/min >60 [facility] Work Phone: Comment on above: GFR Calc Estimated GFR (MDRD) Non-Af Amer 74 mL/min >60 [facility] Work Phone: Comment on above: Non- GFR Calc Vitamin D 25-Hydroxy 49.6 ng/mL [facility] Work Phone: Comment on above: Vitamin D 25(OH) Sta tus Range Deficiency <20 ng/mL (50nmol/L) Insufficiency 20 - 30 ng/mL (50 - 75 nmol/L) Sufficiency 30 - 100 ng/mL (75 - 250 nmol/L) Toxicity >100 ng/mL (>250 nmol/L) Platelets bldon 06-07-2021 Platelets (Bld) [#/Vol] 196 10*3/uL 150-450 [facility] Work Phone: Serum or plasma albumin jalil urement (mass/volume)on 06-07-2021 Albumin [Mass/Vol] 3.9 g/dL 3.2-5.0 [facility] Work Phone: Serum or plasma albumin/glob ulin mass ratioon 06-07-2021 Albumin/Globulin [Mass ratio] 1.1 {ratio} 0.9-2.4 [facility] Work Phone: Serum or plasma calcium jalil urement (mass/volume)on 06-07-2021 Calcium [Mass/Vol] 8.9 mg/dL 8.5-10.1 [facility] Work Phone: Serum or plasma cholesterol in HDL measurement (mass/volume)on 06-07-2021 Cholesterol in HDL [Mass/Vol] 65 mg/dL >40 [facility] Work Phone: Comment on above: The drugs N-Acetylcy steine and Metamizole may falsely depress this assay. Reference Range HDL <40 mg/dL Low HDL Cholesterol HDL >or= 60 mg/dL High HDL Cholesterol Serum or plasma cholesterol in VLDL measurement (mass/volume)on 06-07-2021 Cholesterol in VLDL [Mass/Vol] 25 mg/dL 5-40 [facility] Work Phone: Serum or plasma creatinine m easurement (mass/volume)on 06-07-2021 Creatinine [Mass/Vol] 0.81 mg/dL 0.55-1.02 [facility] Work Phone: Comment on above: The validity of the calculated GFR & GFRAA in patients over 70 years has not been determined. Clinical correlation is essential. Serum or plasma low density lipoprotein (LDL) cholesterol measurement (mass/volume)on 06-07-2021 Cholesterol in LDL [Mass/Vol] 104 mg/dL 0-130 [facility] Work Phone: Serum or plasma urea nitroge n measurement (mass/volume)on 06-07-2021 Urea nitrogen [Mass/Vol] 10 mg/dL 7-18 [facility] Work Phone: Thin prep Papanicolaou smear with manual screeningon 06-07-2021 Thin prep Papanicolaou smear with manual screening 12 U/L 15-37 [facility] Work Phone: Thin prep Papanicolaou smear with manual screening 4 5-15 [facility] Work Phone: CBC (INCLUDES DIFF/PLT)on Basophils (Bld) [#/Vol] 0.059 10*3/uL Normal 0-200 [facility] Comment on above: Performed By: #### 6 [id number] #### [facility] [place] [address] [place] [employer]: Neil Costa MD Basophils/100 WBC (Bld) 0.9 % Normal [facility] Comment on above: Performed By: #### 6 [id number] #### [facility] [place] [address] [place] [employer]: Neil Costa MD Eosinophils (Bld) [#/Vol] 0.033 10*3/uL Normal 15-500 [facility] Comment on above: Performed By: #### 6 399 #### [facility] [place] [address] [place] [employer]: Neil Costa MD Eosinophils/100 WBC (Bld) 0.5 % Normal [facility] Comment on above: Performed By: #### 6 399 #### [facility] [place] [address] [place] [employer]: Neil Costa MD Erythrocyte distribution width (RBC) [Ratio] 13.7 % Normal 11.0-15.0 [facility] Comment on above: Performed By: #### 6 399 #### [facility] [place] [address] [place] [employer]: Neil Costa MD Hematocrit (Bld) [Volume fraction] 45.1 % High 35.0-45.0 [facility] Comment on above: Performed By: #### 6 399 #### [facility] [place] [address] [place] [employer]: Neil Costa MD Hemoglobin (Bld) [Mass/Vol] 15.0 g/dL Normal 11.7-15.5 [facility] Diagnostics Comment on above: Performed By: #### 6 399 #### [facility] [place] [address] [employer]: Neil Costa MD Lymphocytes (Bld) [#/Vol] 1.703 10*3/uL Normal 850-3900 [facility] Comment on above: Performed By: #### 6 399 #### [facility] [place] [address] [employer] [employer]: Neil Costa MD Lymphocytes/100 WBC (Bld) 25.8 % Normal [facility] Comment on above: Performed By: #### 6 399 #### [facility] [place] [address] [employer] [place] [employer]: Neil Costa MD MCH (RBC) [Entitic mass] 30.1 pg Normal 27.0-33.0 [facility] Comment on above: Performed By: #### 6 399 #### [facility] [place] [address] [employer] [place] [employer]: Neil Costa MD MCHC (RBC) [Mass/Vol] 33.3 g/dL Normal 32.0-36.[address] [facility] Comment on above: Performed By: #### 6 399 #### [facility] [place] [address] [employer] [place] [employer]: Neil Costa MD MCV (RBC) [Entitic vol] 90.6 fL Normal 80.0-100.0 [facility] Comment on above: Performed By: #### 6 399 #### [facility] [place] [address] [employer]: Neil Costa MD Monocytes (Bld) [#/Vol] 0.317 10*3/uL Normal 200-950 [facility] Comment on above: Performed By: #### 6 399 #### [facility] [place] [address] [employer] [place] [employer]: Neil Costa MD Monocytes/100 WBC (Bld) 4.8 % Normal [facility] Comment on above: Performed By: #### 6 399 #### [facility] [place] [address] [employer]: Neil Costa MD Neutrophils (Bld) [#/Vol] 4.488 10*3/uL Normal 3416-4848 [facility] Comment on above: Performed By: #### 6 399 #### [facility] [place] [address] [employer]: Neil Costa MD Neutrophils/100 WBC (Bld) 68 % Normal [facility] Comment on above: Performed By: #### 6 399 #### [facility] [place] [address] [employer]: Neil Costa MD Platelet mean volume (Bld) [Entitic vol] 11.5 fL Normal 7.5-12.5 [facility] Comment on above: Performed By: #### 6 399 #### [facility] [place] [address] [employer]: Neil Costa MD Platelets (Bld) [#/Vol] 206 10*3/uL Normal 140-400 [facility] Comment on above: Performed By: #### 6 399 #### [facility] [place] [address] [employer]: Neil Costa MD RBC (Bld) [#/Vol] 4.98 10*6/uL Normal 3.80-5.10 [facility] Comment on above: Performed By: #### 6 399 #### [facility] [place] [address] [employer]: Neil Costa MD WBC (Bld) [#/Vol] 6.6 10*3/uL Normal 3.8-10.8 [facility] Comment on above: Performed By: #### 6 399 #### [facility] [place] [address] [employer]: Neil Costa MD T4, FREEon 01-23-2021 Free T4 [Mass/Vol] 1.3 ng/dL Normal 0.8-1.8 [facility] Comment on above: Performed By: #### 8 72, 218 #### [facility] of [address], [address] [place] [address] [employer]: Neil Costa MD TSHon 01-23-2021 TSH Qn 0.67 m[IU]/L Normal 0.40-4.50 [facility] Comment on above: Performed By: #### 8 66, 239 #### [facility] [address], [address] [place] [id number] [employer]: Neil Costa MD CBC + DIFFon 12-28-2020 Baso # 0.10 x10EE3/UL Normal 0.00 - 0.[address] [facility] Comment on above: Performed By: #### 2 66700 #### [facility],[address] [place] [address] Basophils/100 WBC (Bld) 1.1 % Normal 0.0 - 2.0 [facility] Comment on above: Performed By: #### 2 06719 #### [facility],[address] [place] [address] CBC + DIFF Normal [facility] Comment on above: Result Comment: CBC- COMPLETE BLOOD COUNT Performed By: #### 2 10689 #### [facility],[address] [place] [address] EO # 0.10 x10EE3/UL Normal 0.00 - 0.[address] [facility] Comment on above: Performed By: #### 2 15926 #### [facility],[address] [place], [place] [id number] Eosinophils/100 WBC (Bld) 0.6 % Normal 0.0 - 7.0 [facility] Comment on above: Performed By: #### 2 71930 #### [facility],[address] [place] [address] Erythrocyte distribution width (RBC) [Ratio] 14.8 % Normal 12.0 - 15.6 [facility] Comment on above: Performed By: #### 2 22034 #### [address],[place] [address] Hematocrit (Bld) [Volume fraction] 45.4 % Normal 34.0 - 46.0 [facility] Comment on above: Performed By: #### 2 52650 #### [facility],[address] [place] [address] Hemoglobin (Bld) [Mass/Vol] 15.3 g/dL Normal 12.0 - 16.0 [facility] Comment on above: Performed By: #### 2 59476 #### [facility],[address] [place] [address] Lymph # 2.20 x10EE3/UL Normal 0.80 - 2.[address] [facility] Comment on above: Performed By: #### 2 97796 #### [facility],[address] [place], [place] [id number] Lymphocytes/100 WBC (Bld) 25.8 % Normal 20.0 - 45.0 [facility] Comment on above: Performed By: #### 2 34037 #### [facility],[address] [place] [address] MANUAL DIFF N/A Normal [facility] Comment on above: Performed By: #### 2 74601 #### [facility],[address] [place], [place] [id number] MCH (RBC) [Entitic mass] 30 pg Normal 27 - 33 [facility] Comment on above: Performed By: #### 2 51337 #### [facility],[address] [place] [address] MCHC 34 X10 3 Normal 32 - 36 [facility] Comment on above: Performed By: #### 2 81491 #### [facility],[address] [place] [address] MCV (RBC) [Entitic vol] 90 fL Normal 80 - 99 [facility] Comment on above: Performed By: #### 2 92171 #### [facility],[address] [place] [address] Martin # 0.30 x10EE3/UL Normal 0.20 - 1.[address] [facility] Comment on above: Performed By: #### 2 52290 #### [facility],[address] [place] [address] MONOS % 3.1 % Normal 0.0 - 10.0 [facility] Comment on above: Performed By: #### 2 52173 #### [facility],[address] [place] [address] Morphology Pilo (Bld) [Interp] N/A Normal [facility] Comment on above: Result Comment: {CD] Performed By: #### 2 89798 #### [facility],[address] [place] [address] Neut # 5.90 x10EE3/UL Normal 1.50 - 7.[address] [facility] Comment on above: Performed By: #### 2 00251 #### [facility],[address] [place] [address] Neutrophils/100 WBC (Bld) 69.4 % Normal 46.0 - 76.0 [facility] Comment on above: Performed By: #### 2 11232 #### [facility],[address] [place] [address] 267[address] PLATELET 202 x10EE3/UL Normal 150 - 450 [facility] Comment on above: Performed By: #### 2 91087 #### [facility],[address] [place] [address] Platelet mean volume (Bld) [Entitic vol] 9.6 fL Normal 6.6 - 10.5 [facility] Comment on above: Result Comment: AUTO MATED DIFFERENTIAL Performed By: #### 2 98114 #### [facility],[address] [place] [address]4591 RBC 5.04 x 10EE6/UL Normal 4.10 - 5.30 [facility] Comment on above: Performed By: #### 2 67991 #### [facility],[address] [place] [address] WBC 8.4 x 10EE3/UL Normal 4.5 - 10.8 [facility] Comment on above: Performed By: #### 2 49204 #### [facility],[address] [place] [address] CHEST W/CONTRASTon 2020 CT CHEST W/CONTRAST [address] [address] Patient: SHARITA TRAORE Phone#: : 1950 Age: 70 Gender: F Pt. Type: Out Account: [id number] Location: [facility] Ordering: ALYSIA CARRANZA Exam Date: 12/28/2020/14:56 Family Phys: Charge Code: [id number] Physician: Ritchie Order #: [id number] DLP Dose#: 4.1mGy PROCEDURE: CT CHEST WITH CONTRAST COMPARISON: None. INDICATIONS: Chest pain. TECHNIQUE: After obtaining the patient's consent, CT images were obtained with non-ionic intravenous contrast material. All CT scans at this facility use dose modulation, iterative reconstruction, and/or weight based dosing when appropriate to reduce radiation dose to as low as reasonably achievable. IV CONTRAST: Omnipaque 350,70ml TOTAL DOSE: 4.1 CTDIvol(mGy) FINDINGS: LUNGS: A nonspecific 6 x 7 millimeter nodule is present in the right apex. VASCULATURE: Normal. No visible pulmonary arterial thrombus or attenuation. MADELEINE: Normal. No mass or adenopathy. MEDIASTINUM: Normal. No mass or adenopathy. CARDIAC: Coronary artery calcifications present.. No enlargement, pericardial thickening. AORTA: Normal. No aneurysm or dissection. PLEURA: Normal. No mass or effusion. CHEST WALL: Normal. No mass or axillary adenopathy. LIMITED ABDOMEN: A 17 millimeter right renal cyst is present. Gallbladder calculus is present. BONES: Normal. No bony lesion or fracture. OTHER: Negative. CONCLUSION: 1. There is no evidence of pulmonary embolus. Cholelithiasis. Right renal cyst. Nonspecific 6 x 7 millimeter right apical nodule. [address] [address] Patient: SHARITA TRAORE Phone#: : 1950 Age: 70 Gender: F Pt. Type: Out Account: [id number] Location: 052 Ordering: LUKE DILLON Exam Date: 12/28/2020/14:56 Family Phys: Charge Code: [id number] Physician: Ritchie Order #: [id number] DLP Dose#: 4.1mGy Dictated by: Tali Sims MD on 12/28/2020 at 17:58 Approved by: Tali Sims MD on 12/28/2020 at 18:02 Normal [facility] CT NECK W/CONTRASTon 021 CT NECK W/CONTRAST [place] [address] Patient: SHARITA TRAORE Phone#: : 1950 Age: 70 Gender: F Pt. Type: Out Account: [id number] Location: 05 Ordering: [employer] Exam Date: 12/28/2020/14:56 Family Phys: Charge Code: [id number] Physician: Ritchie Order #: [id number] DLP Dose#: 4.9mGy PROCEDURE: CT NECK WITH CONTRAST COMPARISON: None. INDICATIONS: Chest pain. TECHNIQUE: After obtaining the patient's consent, CT images were created with non-ionic intravenous contrast material. All CT scans at this facility use dose modulation, iterative reconstruction, and/or weight based dosing when appropriate to reduce radiation dose to as low as reasonably achievable. IV CONTRAST: Omnipaque 350,55ml TOTAL DOSE: 4.9 CTDIvol(mGy) FINDINGS: NASOPHARYNX: Normal. Fossae of Rosenmuller and torus tubarius are symmetric. ORAL CAVITY: Normal. No visible mass. OROPHARYNX: Normal. Faucial and lingual tonsils are symmetric. HYPOPHARYNX: Normal. No mass or other visible lesion. LARYNX: Normal. The vocal cords are symmetric and without mass. SINUSES: There is partial opacification of the right mastoid.. Limited views show no significant fluid or mucosal thickening. NECK GLANDS: Multiple hypodense foci are present in the thyroid lobes and isthmus. Thyroid ultrasound is recommended. LYMPH NODES: Normal. No pathological-appear ing or enlarged lymph nodes. SKULL BASE: Normal. Foramina are symmetric without bony erosion. VASCULATURE: Normal. Limited views are unremarkable. BONES: Normal. No significant osseous lesions. OTHER: Normal. No additional imaging findings. CONCLUSION: 1. Partial opacification of the right mastoid. Continued Report - Page 2 of 2 Patient: SHARITA TRAORE Phone#: : 1950 Age: 70 Gender: F Pt. Type: Out Account: [id number] Location: [facility] Ordering: ALYSIA CARRANZA Exam Date: 12/28/2020/14:56 Family Phys: Charge Code: [id number] Physician: Ritchie Order #: [id number] DLP Dose#: 4.9mGy 2. Multiple hypodense foci in the thyroid lobes. Dictated by: Tali Sims MD on 12/28/2020 at 18:02 Approved by: Tali Sims MD on 12/28/2020 at 18:27 Normal [facility] CBC (INCLUDES DIFF/PLT)on WHITE BLOOD CELL COUNT Normal [facility] Comment on above: Result Comment: TEST NOT PERFORMED Specimen received clotted. Performed By: #### 6 434, 35005 #### [facility] [address], [address] [place] [address] [employer]: Neil Costa MD COMPREHENSIVE METABOLIC PANE [facility] 12-26-2020 Albumin [Mass/Vol] 4.6 g/dL Normal 3.6-5.1 [facility] Comment on above: Performed By: #### 6 399, 04531 #### [facility] [address] , [address] [place] [phone] [employer]: Neil Costa MD Albumin/Globulin [Mass ratio] 1.7 {ratio} Normal 1.0-2.5 [facility] Comment on above: Performed By: #### 6 399, 01994 #### [facility] of [address], [address] [place] [address] [employer]: Neil Costa MD ALP [Catalytic activity/Vol] 55 U/L Normal 37-153 [facility] Comment on above: Performed By: #### 6 399, 29756 #### [facility] of [address], [address] [place] [address] [employer]: Neil Costa MD ALT [Catalytic activity/Vol] 8 U/L Normal 6-29 [facility] Comment on above: Performed By: #### 6 399, 43478 #### [facility] [place] [address] [employer]: Neil Costa MD AST [Catalytic activity/Vol] 13 U/L Normal 10-35 [facility] Comment on above: Performed By: #### 6 399, 79021 #### [facility] of [address], [address] [place] [address] [employer]: Neil Costa MD Bilirubin [Mass/Vol] 1.0 mg/dL Normal 0.2-1.2 [facility] Comment on above: Performed By: #### 6 399, 08575 #### [facility] of [address], [address] [place] [address] [employer]: Neil Costa MD BUN/CREATININE RATIO NOT APPLICABLE Normal 6-22 [facility] Comment on above: Performed By: #### 6 399, 38762 #### [facility] of [address], [address] [place] [address] [employer]: Neil Costa MD Calcium [Mass/Vol] 9.9 mg/dL Normal 8.6-10.4 [facility] Comment on above: Performed By: #### 6 399, 48649 #### [facility] of [address], [address] [place] [address] [employer]: Neil Costa MD Chloride [Moles/Vol] 107 mmol/L Normal 98-110 [facility] Comment on above: Performed By: #### 6 399, 36455 #### [facility] [address], [address] [place] [address] [employer]: Neil Costa MD CO2 [Moles/Vol] 28 mmol/L Normal 20-32 [facility] Comment on above: Performed By: #### 6 399, 24814 #### [facility] [address], [address] [place] [address] [employer]: Neil Costa MD Creatinine [Mass/Vol] 0.87 mg/dL Normal 0.60-0.[address] [facility] Comment on above: Result Comment: For patients >49 years of age, the reference limit for Creatinine is approximately 13% higher for people identified as -Emirati. Performed By: #### 6 399, 83486 #### [facility] [address], [address] [place] [address] [employer]: Neli Costa MD eGFR NON-AFR. PANAMANIAN 67 mL/min/1.73m2 Normal > OR = 60 [facility] Comment on above: Performed By: #### 6 399, 61104 #### [facility] [place] [address] [employer]: Neil Costa MD GFR/1.73 sq M.predicted among blacks MDRD (S/P/Bld) [Vol rate/Area] 77 mL/min/{1.73_m2} Normal > OR = 60 [facility] Comment on above: Performed By: #### 6 399, 93374 #### [facility] [place] [address] [employer]: Neil Costa MD Globulin (S) [Mass/Vol] 2.7 g/dL Normal 1.9-3.7 [facility] Comment on above: Performed By: #### 6 399, 36320 #### [facility] [place] [address] [employer]: Neil Costa MD Glucose [Mass/Vol] 101 mg/dL High 65-99 [facility] Comment on above: Result Comment: Fasting reference interval For someone without known diabetes, a glucose value between 100 and 125 mg/dL is consistent with prediabetes and should be confirmed with a follow-up test. Performed By: #### 6 399, 03679 #### [facility] [place] [address] [employer]: Neil Costa MD Potassium [Moles/Vol] 4.3 mmol/L Normal 3.5-5.[address] [facility] Comment on above: Performed By: #### 6 399, 85735 #### [facility] [place] [address] [employer]: Neil Costa MD Protein [Mass/Vol] 7.3 g/dL Normal 6.1-8.1 [facility] Comment on above: Performed By: #### 6 399, 47478 #### [facility] [place] [address] [employer]: Neil Costa MD Sodium [Moles/Vol] 142 mmol/L Normal 135-146 [facility] Comment on above: Performed By: #### 6 399, 35326 #### [facility] [place] [address] [employer]: Neil Costa MD Urea nitrogen [Mass/Vol] 8 mg/dL Normal 7-25 [facility] Comment on above: Performed By: #### 6 399, 24868 #### [facility] [place] [address] [employer]: Neil Costa MD MAMM DIGITAL BILAT SCREEN 05-25-2020 MAMM DIGITAL BILAT SCREEN [place] [id number] Patient: SHARITA TRAORE Phone#: : 1950 Age: 69 Gender: F Pt. Type: Account: [id number] Location: 052 Ordering: KEENA STOWELL Exam Date: 05/25/2020/8:06 Family Phys: Charge Code: [id number] Physician: Ritchie Order #: [id number] DLP Dose#: PROCEDURE: MAMM BILAT DIGITAL SCREENING WITH CAD COMPARISON: [facility], BILAT SCREENING, 04/09/2018, 9:25. [facility], BILAT SCREENING, 05/03/2019, 11:06. INDICATIONS: Screening mammogram BREAST COMPOSITION: Scattered fibroglandular densities(25-50% glandular). FINDINGS: DIAGNOSTIC CATEGORY 1--NEGATIVE ASSESSMENT. RIGHT BREAST: No significant suspicious finding. No significant change has occurred. LEFT BREAST: No significant suspicious finding. No significant change has occurred. RECOMMENDATIONS: ROUTINE MAMMOGRAM AND CLINICAL EVALUATION IN 12 MONTHS. PLEASE NOTE: A NORMAL MAMMOGRAM DOES NOT EXCLUDE THE POSSIBILITY OF BREAST CANCER. A CLINICALLY SUSPICIOUS PALPABLE LUMP SHOULD BE BIOPSIED. THIS FACILITY UTILIZES A REMINDER SYSTEM TO ENSURE THAT ALL PATIENTS RECEIVE REMINDER LETTERS FOR APPOINTMENTS. THIS INCLUDES REMINDERS FOR ROUTINE MAMMOGRAMS, DIAGNOSITC MAMMOGRAMS, OR OTHER BREAST IMAGING INTERVENTIONS WHEN APPROPRIATE. THIS PATIENT WILL BE PLACED IN THE APPROPRIATE REMINDER SYSTEM. Dictated by: Belkis Lehman MD on 05/25/2020 at 10:09 Approved by: Belkis Lehman MD on 05/25/2020 at 10:10 Normal [facility] COMPREHENSIVE METABOLIC PANE [place] 05-07-2020 Albumin [Mass/Vol] 4.6 g/dL Normal 3.6-5.1 [facility] Comment on above: Performed By: #### 1 3751, 7532 #### [facility] [address], [address] [place] [address] [employer]: Neil Costa MD Albumin/Globulin [Mass ratio] 2.0 {ratio} Normal 1.0-2.5 [facility] Comment on above: Performed By: #### 1 0231, 2910 #### [facility] [address], [address] [place] [address] [employer]: Neil Costa MD ALP [Catalytic activity/Vol] 52 U/L Normal 37-153 [facility] Comment on above: Performed By: #### 1 0231, 7600 #### [facility] of [address], [address] [place] [address] [employer]cher: Neil Costa MD ALT [Catalytic activity/Vol] 7 U/L Normal 6-29 [facility] Comment on above: Performed By: #### 1 0231, 7600 #### [facility] of [address], [address] [place] [address] [employer]cher: Neil Costa MD AST [Catalytic activity/Vol] 12 U/L Normal 10-35 [facility] Comment on above: Performed By: #### 1 0231, 7600 #### [facility] of [address], [address] [place] [address] [employer]cher: Neil Costa MD Bilirubin [Mass/Vol] 1.2 mg/dL Normal 0.2-1.2 [facility] Comment on above: Performed By: #### 1 023, 7600 #### [facility] of [address], [address] [place] [address] [employer]cher: Neil Costa MD BUN/CREATININE RATIO NOT APPLICABLE Normal 6-22 [facility] Comment on above: Performed By: #### 1 0231, 7600 #### [facility] of [address], [address] [place] [address] [employer]: Neil Costa MD Calcium [Mass/Vol] 9.7 mg/dL Normal 8.6-10.4 [facility] Comment on above: Performed By: #### 1 0231, 7600 #### [facility] of [address], [address] [place] [address] [employer]cher: Neil Costa MD Chloride [Moles/Vol] 107 mmol/L Normal 98-110 [facility] Comment on above: Performed By: #### 1 0231, 7600 #### [facility] of [address], [address] [place] [address] [employer]cher: Neil Costa MD CO2 [Moles/Vol] 28 mmol/L Normal 20-32 [facility] Comment on above: Performed By: #### 1 023, 7600 #### [facility] [address], [address] [place] [address] [employer]cher: Neil Costa MD Creatinine [Mass/Vol] 0.77 mg/dL Normal 0.60-0.[address] [facility] Comment on above: Result Comment: For patients >49 years of age, the reference limit for Creatinine is approximately 13% higher for people identified as -Emirati. Performed By: #### 1 023, 7600 #### [facility] [address], [address] [place] [address] [employer]: Neil Costa MD eGFR NON-AFR. PANAMANIAN 78 mL/min/1.73m2 Normal > OR = 60 [facility] Comment on above: Performed By: #### 1 023, 7600 #### [facility] [address], [address] [place] [address] [employer]: Neil Costa MD GFR/1.73 sq M.predicted among blacks MDRD (S/P/Bld) [Vol rate/Area] 90 mL/min/{1.73_m2} Normal > OR = 60 [facility] Comment on above: Performed By: #### 1 023, 7600 #### [facility] [address], [address] [place] [address] [employer]: Neil Costa MD Globulin (S) [Mass/Vol] 2.3 g/dL Normal 1.9-3.7 [facility] Comment on above: Performed By: #### 1 023, 7600 #### [facility] [address], [address] [place] [address] [employer]: Neil Costa MD Glucose [Mass/Vol] 103 mg/dL High 65-99 [facility] Comment on above: Result Comment: Fasting reference interval For someone without known diabetes, a glucose value between 100 and 125 mg/dL is consistent with prediabetes and should be confirmed with a follow-up test. Performed By: #### 1 023, 7600 #### [facility] of [address], [address] [place] [address] [employer]: Neil Costa MD Potassium [Moles/Vol] 4.4 mmol/L Normal 3.5-5.[address] [facility] Comment on above: Performed By: #### 1 0231, 7600 #### [facility] of [address], [address] [place] [address] [employer]: Neil Costa MD Protein [Mass/Vol] 6.9 g/dL Normal 6.1-8.1 [facility] Comment on above: Performed By: #### 1 0231, 7600 #### [facility] of [address], [address] [place] [address] [employer]cher: Neil Costa MD Sodium [Moles/Vol] 143 mmol/L Normal 135-146 [facility] Comment on above: Performed By: #### 1 023, 7600 #### [facility] of [address], [address] [place] [address] [employer]cher: Neil Costa MD Urea nitrogen [Mass/Vol] 10 mg/dL Normal 7-25 [facility] Comment on above: Performed By: #### 1 023, 7600 #### [facility] of [place] [address] [employer]cher: Neil Costa MD LIPID PANEL, [facility] 04-27 Cholesterol [Mass/Vol] 210 mg/dL High <200 [facility] Comment on above: Performed By: #### 1 0231, 7600 #### [facility] of [address], [address] [place] [address] [employer]cher: Neil Costa MD Cholesterol in HDL [Mass/Vol] 65 mg/dL Normal > OR = 50 [facility] Comment on above: Performed By: #### 1 0231, 7600 #### [facility] of [address], [address] [place] [address] [employer]: Neil Costa MD Cholesterol in LDL [Mass/Vol] 120 mg/dL High [facility] Comment on above: Result Comment: Refe rence range: <100 Desirable range <100 mg/dL for primary prevention; <70 mg/dL for patients with CHD or diabetic patients with > or = 2 CHD risk factors. LDL-C is now calculated using the Shy calculation, which is a validated novel method providing better accuracy than the Friedewald equation in the estimation of LDL-C. Noe SS et al. MINOR. 2013;310(49): 1566-3864 (http://education.The Bucket BBQ/faq/RNE319) Performed By: #### 1 023, 0 #### [facility] [address], [address] [place] [address] [employer] Tree Stitcher: Neil Costa MD Cholesterol.total/Chol esterol in HDL [Mass ratio] 3.2 {ratio} Normal <5.0 [facility] Comment on above: Performed By: #### 1 023, 0 #### [facility] [address], [address] [place] [address] [employer] Stitcher: Neil Costa MD NON HDL CHOLESTEROL 145 mg/dL (calc) High <130 [facility] Comment on above: Result Comment: For patients with diabetes plus 1 major ASCVD risk factor, treating to a non-HDL-C goal of <100 mg/dL (LDL-C of <70 mg/dL) is considered a therapeutic option. Performed By: #### 1 023, 0 #### [facility] [address], [address] [place] [address] [employer] St[employer]cher: Neil Costa MD Triglyceride [Mass/Vol] 133 mg/dL Normal <150 [facility] Comment on above: Performed By: #### 1 0231, 0 #### [facility] [place] [address] [employer] Stitcher: Neil Costa MD Office Visit: abdominal pain on 11-10-2016 Documentation of current medications (procedure) Done Invalid Interpretation Code [facility] Work Phone: Fall risk assessment No Invalid Interpretation Code [facility] Work Phone: Protein mass conc Done [facility] [employer] Work Phone: Protein mass conc yes [facility] [employer] Work Phone: Smoking cessation education (procedure) yes Invalid Interpretation Code [facility] [employer] Work Phone: Tobacco smoking status NHIS Never Invalid Interpretation Code [facility] [employer] Work Phone: Tobacco smoking status NHIS Current every day smoker [facility] [employer] Work Phone: Tobacco use [facility] Current every day smoker Invalid Interpretation Code [facility] [employer] Work Phone: Office Visit: abdominal pain on 10-17-2016 Colonoscopy (procedure) Abnormal Invalid Interpretation Code [facility] [employer] Work Phone: Protein mass conc Abnormal [facility] [employer] Work Phone: Office Visit: abdominal pain on 11-03-2015 MG Breast screening Normal Bilateral Invalid Interpretation Code [facility] [employer] Work Phone: Vital Signs Date Time Vital Sign Value Performing Clinician Facility 09-06-2024 11:18-0400 Body mass index (BMI) [Ratio] 18.28 kg/m2 Mckenzie Podlogar FILLER IN.CHANNEL MACHINE OPERATOR Work Phone: [facility] 09-06-2024 11:18-0400 Body weight 52.16 kg Mckenzie Podlogar FILLER IN.CHANNEL MACHINE OPERATOR Work Phone: [facility] 09-06-2024 11:18-0400 Diastolic blood pressure 78 mm[Hg] Mckenzie Podlogar FILLER IN.CHANNEL MACHINE OPERATOR Work Phone: [facility] 09-06-2024 11:18-0400 Heart rate 70 /min Mckenzie Podlogar FILLER IN.CHANNEL MACHINE OPERATOR Work Phone: [facility] 09-06-2024 11:18-0400 Respiratory rate 18 /min Mckenzie Podlogar FILLER IN.CHANNEL MACHINE OPERATOR Work Phone: [facility] 09-06-2024 11:18-0400 SaO2% (BldA) [Mass fraction] 98 % Mckenzie Podlogar FILLER IN.CHANNEL MACHINE OPERATOR Work Phone: [facility] 09-06-2024 11:18-0400 Systolic blood pressure 132 mm[Hg] Mckenzie Podlogar FILLER IN.CHANNEL MACHINE OPERATOR Work Phone: [facility] 03-12-2024 09:48-0500 Body mass index (BMI) [Ratio] 19.28 kg/m2 Mckenzie Podlogar FILLER IN.CHANNEL MACHINE OPERATOR Work Phone: [facility] 03-12-2024 09:48-0500 Body weight 55 kg Mckenzie Podlogar FILLER IN.CHANNEL MACHINE OPERATOR Work Phone: [facility] 03-12-2024 09:48-0500 Diastolic blood pressure 86 mm[Hg] Mckenzie Podlogar FILLER IN.CHANNEL MACHINE OPERATOR Work Phone: [facility] 03-12-2024 09:48-0500 Heart rate 61 /min Mckenzie Podlogar FILLER IN.CHANNEL MACHINE OPERATOR Work Phone: [facility] 03-12-2024 09:48-0500 Respiratory rate 16 /min Mckenzie Podlogar FILLER IN.CHANNEL MACHINE OPERATOR Work Phone: [facility] 03-12-2024 09:48-0500 SaO2% (BldA) [Mass fraction] 98 % Mckenzie Podlogar FILLER IN.CHANNEL MACHINE OPERATOR Work Phone: [facility] 03-12-2024 09:48-0500 Systolic blood pressure 138 mm[Hg] Mckenzie Podlogar FILLER IN.CHANNEL MACHINE OPERATOR Work Phone: [facility] 10-20-2023 10:19-0400 Body height 168.9 cm Kait Hernandezitz FILLER IN.CHANNEL MACHINE OPERATOR Work Phone: [facility] 10-20-2023 10:19-0400 Body mass index (BMI) [Ratio] 19.56 kg/m2 Kait Hritz FILLER IN.CHANNEL MACHINE OPERATOR Work Phone: [facility] 10-20-2023 10:19-0400 Body weight 55.79 kg Kait Hritz FILLER IN.CHANNEL MACHINE OPERATOR Work Phone: [facility] 10-20-2023 10:19-0400 Diastolic blood pressure 78 mm[Hg] Kait Wilson FILLER IN.CHANNEL MACHINE OPERATOR Work Phone: [facility] 10-20-2023 10:19-0400 Heart rate 66 /min Kait Wilson FILLER IN.CHANNEL MACHINE OPERATOR Work Phone: [facility] 10-20-2023 10:19-0400 Systolic blood pressure 126 mm[Hg] Kait Hritz FILLER IN.CHANNEL MACHINE OPERATOR Work Phone: [facility] 09-11-2023 10:20-0400 Diastolic blood pressure 72 mm[Hg] Franklyn Jett MD Work Phone: [facility] Comment on above: recheck 09-11-2023 10:20-0400 Systolic blood pressure 132 mm[Hg] Franklyn Jett MD Work Phone: [facility] Comment on above: recheck 09-11-2023 09:52-0400 Body mass index (BMI) [Ratio] 20.14 kg/m2 Franklyn Jett MD Work Phone: [facility] 09-11-2023 09:52-0400 Body weight 56.61 kg Franklyn Jett MD Work Phone: [facility] 09-11-2023 09:52-0400 Heart rate 71 /min Franklyn Jett MD Work Phone: [facility] 09-11-2023 09:52-0400 Respiratory rate 16 /min Franklyn Jett MD Work Phone: [facility] 09-11-2023 09:52-0400 SaO2% (BldA) [Mass fraction] 98 % Franklyn Jett MD Work Phone: [facility] 03-10-2023 12:40-0500 Body weight 57.61 kg Mckenzie Santiago FILLER IN.CHANNEL MACHINE OPERATOR Work Phone: [facility] 03-10-2023 12:40-0500 Diastolic blood pressure 82 mm[Hg] Mckenzie Santiago FILLER IN.CHANNEL MACHINE OPERATOR Work Phone: [facility] 03-10-2023 12:40-0500 Heart rate 81 /min Mckenzie Podlogar FILLER IN.CHANNEL MACHINE OPERATOR Work Phone: [facility] 03-10-2023 12:40-0500 Respiratory rate 16 /min Mckenzie Podlogar FILLER IN.CHANNEL MACHINE OPERATOR Work Phone: [facility] 03-10-2023 12:40-0500 SaO2% (BldA) [Mass fraction] 98 % Mckenzie Podlogar FILLER IN.CHANNEL MACHINE OPERATOR Work Phone: [facility] 03-10-2023 12:40-0500 Systolic blood pressure 130 mm[Hg] Mckenzie Podlogar FILLER IN.CHANNEL MACHINE OPERATOR Work Phone: [facility] 01-20-2023 14:02-0400 Body temperature 98.49 [degF] Leroy Renny FILLER IN.CHANNEL MACHINE OPERATOR Work Phone: [facility] 01-20-2023 14:02-0400 Body weight 57.15 kg Leroy Renny FILLER IN.CHANNEL MACHINE OPERATOR Work Phone: [facility] 01-20-2023 14:02-0400 Diastolic blood pressure 86 mm[Hg] Leroy Renny FILLER IN.CHANNEL MACHINE OPERATOR Work Phone: [facility] 01-20-2023 14:02-0400 Heart rate 74 /min Leroy Renny FILLER IN.CHANNEL MACHINE OPERATOR Work Phone: [facility] 01-20-2023 14:02-0400 Respiratory rate 18 /min Leroy Renny FILLER IN.CHANNEL MACHINE OPERATOR Work Phone: [facility] 01-20-2023 14:02-0400 SaO2% (BldA) [Mass fraction] 99 % Leroy Renny FILLER IN.CHANNEL MACHINE OPERATOR Work Phone: [facility] 01-20-2023 14:02-0400 Systolic blood pressure 147 mm[Hg] Leroy Renny FILLER IN.CHANNEL MACHINE OPERATOR Work Phone: [facility] 01-11-2023 20:03-0400 Heart rate 82 /min Dr. Emily Hoang Work Phone: [facility] 01-11-2023 20:03-0400 Respiratory rate 18 /min Dr. Emily Hoang Work Phone: [facility] 01-11-2023 20:03-0400 SaO2% (BldA) [Mass fraction] 100 % Dr. Emily Hoang Work Phone: [facility] 01-11-2023 14:49-0400 Body height 167.[address] Emily Hoang Work Phone: [facility] 01-11-2023 14:49-0400 Body mass index (BMI) [Ratio] 20.5 kg/m2 Dr. Emily Hoang Work Phone: [facility] 01-11-2023 14:49-0400 Body temperature 98.7 [degF] Dr. Emily Hoang Work Phone: [facility] 01-11-2023 14:49-0400 Body weight 57.[address] Emily Hoang Work Phone: [facility] 01-11-2023 14:49-0400 Diastolic blood pressure 97 mm[Hg] Dr. Emily Hoang Work Phone: [facility] 01-11-2023 14:49-0400 Systolic blood pressure 133 mm[Hg] Dr. Emily Hoang Work Phone: [facility] 11-11-2022 09:11-0400 Body mass index (BMI) [Ratio] 20 kg/m2 Dr. Emily Hoang Work Phone: [facility] 11-11-2022 09:11-0400 Body temperature 97.2 [degF] Dr. Emily oHang Work Phone: [facility] 11-11-2022 09:11-0400 Body weight 58.[address] Emily Hoang Work Phone: [facility] 11-11-2022 09:11-0400 Diastolic blood pressure 87 mm[Hg] Dr. Emily Hoang Work Phone: [facility] 11-11-2022 09:11-0400 Heart rate 63 /min Dr. Emily Hoang Work Phone: [facility] 11-11-2022 09:11-0400 Respiratory rate 16 /min Dr. Emily Hoang Work Phone: [facility] 11-11-2022 09:11-0400 SaO2% (BldA) [Mass fraction] 96 % Dr. Emily Hoang Work Phone: [facility] 11-11-2022 09:11-0400 Systolic blood pressure 155 mm[Hg] Dr. Emily Hoang Work Phone: [facility] 09-08-2022 15:15-0400 Body height 167.8 cm Franklyn Jett MD Work Phone: [facility] 09-08-2022 15:15-0400 Body weight 59.33 kg Franklyn Jett MD Work Phone: [facility] 09-08-2022 15:15-0400 Diastolic blood pressure 72 mm[Hg] Franklyn Jett MD Work Phone: [facility] 09-08-2022 15:15-0400 Heart rate 65 /min Franklyn Jett MD Work Phone: [facility] 09-08-2022 15:15-0400 Respiratory rate 16 /min Franklyn Jett MD Work Phone: [facility] 09-08-2022 15:15-0400 SaO2% (BldA) [Mass fraction] 95 % Franklyn Jett MD Work Phone: [facility] 09-08-2022 15:15-0400 Systolic blood pressure 132 mm[Hg] Franklyn Jett MD Work Phone: [facility] 10-04-2021 10:43-0400 Body height 170.[address] Emily Hoang Work Phone: [facility] Work Phone: 10-04-2021 10:43-0400 Body mass index (BMI) [Ratio] 19.5 kg/m2 Dr. Emily Hoang Work Phone: [facility] Work Phone: 10-04-2021 10:43-0400 Body temperature 98.2 [degF] Dr. Emily Hoang Work Phone: [facility] Work Phone: 10-04-2021 10:43-0400 Body weight 56.[address] Emily Hoang Work Phone: [facility] Work Phone: 10-04-2021 10:43-0400 Diastolic blood pressure 80 mm[Hg] Dr. Emily Hoang Work Phone: [facility] Work Phone: 10-04-2021 10:43-0400 Heart rate 78 /min Dr. Emily Hoang Work Phone: [facility] Work Phone: 10-04-2021 10:43-0400 Respiratory rate 14 /min Dr. Emily Hoang Work Phone: [facility] Work Phone: 10-04-2021 10:43-0400 SaO2% (BldA) [Mass fraction] 99 % Dr. Emily Hoang Work Phone: [facility] Work Phone: 10-04-2021 10:43-0400 Systolic blood pressure 138 mm[Hg] Dr. Emily Hoang Work Phone: [facility] Work Phone: 06-16-2021 09:03-0400 Body height 170.18 cm PA Luke Dillon Work Phone: [facility] Work Phone: 06-16-2021 09:03-0400 Body mass index (BMI) [Ratio] 20 kg/m2 PA Luke Dillon Work Phone: [facility] Work Phone: 06-16-2021 09:03-0400 Body weight 58.05 kg PA Luke Dillon Work Phone: [facility] Work Phone: 06-16-2021 09:03-0400 Body height 170.18 cm PA-C KonaWare PA Work Phone: [facility] Work Phone: 06-16-2021 09:03-0400 Body mass index (BMI) [Ratio] 20 kg/m2 PA-C [employer] PA Work Phone: [facility] Work Phone: 06-16-2021 09:03-0400 Body weight 58.05 kg PA-C [employer] PA Work Phone: [facility] Work Phone: 06-07-2021 14:11-0400 Body mass index (BMI) [Ratio] 20 kg/m2 PA Luke Dillon Work Phone: [facility] Work Phone: 06-07-2021 14:11-0400 Body temperature 96 [degF] PA Luke Dillon Work Phone: [facility] Work Phone: 06-07-2021 14:11-0400 Body weight 58.05 kg PA Luke Dillon Work Phone: [facility] Work Phone: 06-07-2021 14:11-0400 Diastolic blood pressure 70 mm[Hg] PA Luke Dillon Work Phone: [facility] Work Phone: 06-07-2021 14:11-0400 Heart rate 74 /min PA Luke Dillon Work Phone: [facility] Work Phone: 06-07-2021 14:11-0400 Respiratory rate 16 /min PA Luke Dillon Work Phone: [facility] Work Phone: 06-07-2021 14:11-0400 SaO2% (BldA) [Mass fraction] 99 % PA Luke Dillon Work Phone: [facility] Work Phone: 06-07-2021 14:11-0400 Systolic blood pressure 118 mm[Hg] PA Luke Dillon Work Phone: [facility] Work Phone: 06-07-2021 14:11-0400 Body height 170.[address] Eran Da Silva Work Phone: [facility] Work Phone: 06-07-2021 14:11-0400 Body mass index (BMI) [Ratio] 20 kg/m2 Dr. Eran Da Silva Work Phone: [facility] Work Phone: 06-07-2021 14:11-0400 Body temperature 96 [degF] Dr. Eran Da Silva Work Phone: [facility] Work Phone: 06-07-2021 14:11-0400 Body weight 58.[address] Eran Da Silva Work Phone: [facility] Work Phone: 06-07-2021 14:11-0400 Diastolic blood pressure 70 mm[Hg] Dr. Eran Da Silva Work Phone: [facility] Work Phone: 06-07-2021 14:11-0400 Heart rate 74 /min Dr. Eran Da Silva Work Phone: [facility] Work Phone: 06-07-2021 14:11-0400 Respiratory rate 16 /min Dr. Eran Da Silva Work Phone: [facility] Work Phone: 06-07-2021 14:11-0400 SaO2% (BldA) [Mass fraction] 99 % Dr. Eran Da Silva Work Phone: [facility] Work Phone: 06-07-2021 14:11-0400 Systolic blood pressure 118 mm[Hg] Dr. Eran Da Silva Work Phone: [facility] Work Phone: 04-22-2021 06:58-0500 Body temperature 97.3 [degF] Dr. Eran Da Silva Work Phone: [facility] Work Phone: 04-22-2021 06:58-0500 Body weight 58.[address] Eran Da Silva Work Phone: [facility] Work Phone: 04-22-2021 06:58-0500 Diastolic blood pressure 80 mm[Hg] Dr. Eran Da Silva Work Phone: [facility] Work Phone: 04-22-2021 06:58-0500 Heart rate 63 /min Dr. Eran Da Silva Work Phone: [facility] Work Phone: 04-22-2021 06:58-0500 Respiratory rate 16 /min Dr. Eran Da Silva Work Phone: [facility] Work Phone: 04-22-2021 06:58-0500 SaO2% (BldA) [Mass fraction] 97 % Dr. Eran Da Silva Work Phone: [facility] Work Phone: 04-22-2021 06:58-0500 Systolic blood pressure 136 mm[Hg] Dr. Eran Da Silva Work Phone: [facility] Work Phone: 04-15-2021 08:19-0500 Body mass index (BMI) [Ratio] 20.2 kg/m2 Dr. Eran Da Silva Work Phone: [facility] Work Phone: 02-25-2021 11:45-0500 Body weight 60.[address] Eran Da Silva Work Phone: [facility] Work Phone: 02-25-2021 11:45-0500 Heart rate 63 /min Dr. Eran Da Silva Work Phone: [facility] Work Phone: 02-25-2021 11:45-0500 SaO2% (BldA) [Mass fraction] 97 % Dr. Eran Da Silva Work Phone: [facility] Work Phone: 11-10-2016 08:48-0400 BMI (Body Mass Index) 20.7 kg/m2 [facility] Work Phone: 11-10-2016 08:48-0400 Body Temperature 98.2 [degF] [facility] Work Phone: 11-10-2016 08:48-0400 BP Diastolic 74 mm[Hg] [facility] Work Phone: 11-10-2016 08:48-0400 BP Systolic 133 mm[Hg] [facility] Work Phone: 11-10-2016 08:48-0400 Height 170.18 cm [facility] Work Phone: 11-10-2016 08:48-0400 Pulse (Heart Rate) 62 /min [facility] Work Phone: 11-10-2016 08:48-0400 Respiratory Rate 20 /min Sara Hebert [facility] Work Phone: 11-10-2016 08:48-0400 Weight 59.97 kg Sara Hebert [facility] Work Phone: 11-10-2016 08:48-0400 Weight 59.96 kg Sara Hebert [facility] Work Phone: Encounters Encounter Date Encounter Type Care Provider Facility Start: 10-16-2024 ambulatory FRANKLYN JETT Facility:[facility] Start: 10-16-2024 End: 10-16-2024 Subsequent hospital visit by physician Screen Mammo [facility] Start: 09-17-2024 End: 09-17-2024 ambulatory Destiny Madera MA [employer] [facility] [place] Start: 09-17-2024 End: 09-17-2024 Patient encounter procedure Destiny Mad[facility] [place] Comment on above: Population Health Na vigation Outreach (Reader/Workbench/ACO ) Start: 09-13-2024 End: 09-17-2024 Follow-up encounter Diego Alejandra LPN [facility] [address] Start: 09-11-2024 End: 09-18-2024 Telephone encounter Mckenzie Santiago APRN.CNP Work Phone: Coumadin [facility] Comment on above: Results (xray from ) Start: 09-06-2024 End: 09-06-2024 Patient encounter procedure Mckenzie Santiago APRN.CNP Work Phone: [facility] Comment on above: Acute pain of left s houlder (Primary Dx); Encounter for screening mammogram for malignant neoplasm of breast Start: 09-06-2024 End: 09-06-2024 Subsequent hospital visit by physician Xr [facility] Work Phone: Radiology Comment on above: Acute pain of left s houlder [M25.512] Start: 09-06-2024 End: 09-06-2024 ambulatory FRANKLYN JETT Facility:[facility] Start: 08-08-2024 End: 08-08-2024 ambulatory Keena Camiloate [facility] [place] Start: 08-08-2024 End: 08-08-2024 Patient encounter procedure [facility] Vicente [facility] Comment on above: Population Health Na vigation Outreach (ACO, High Risk /) Start: 07-08-2024 End: 07-08-2024 ambulatory Destiny Camiloate [facility] [place] Start: 07-08-2024 End: 07-08-2024 Patient encounter procedure Destiny Madera MA [facility] Comment on above: Population Health Na vigation Outreach ([place]/Workbench/ACO ) Start: 03-12-2024 End: 03-12-2024 Patient encounter procedure Mckenzie Santiago APRN.CHANNEL MACHINE OPERATOR Work Phone: [facility] Comment on above: Hyperlipidemia, mixe d (Primary Dx); Tobacco use disorder; Ileostomy in place (HCC); S/P colectomy; Moderate COPD (chronic obstructive pulmonary disease) (HCC); Age-related osteoporosis without current pathological fracture Start: 03-12-2024 End: 03-12-2024 ambulatory FRANKLYN JETT Facility:[facility] Start: 03-05-2024 End: 03-06-2024 Refill Franklyn Jett MD Work Phone: [facility] Comment on above: Refill Request Start: 12-13-2023 End: 12-13-2023 ambulatory Pia Banuelos NP [facility] Start: 10-26-2023 End: 10-26-2023 ambulatory Pia Banuelos NP Facility:[facility] Start: 10-20-2023 End: 10-20-2023 ambulatory FRANKLYN JETT Facility:[facility] Start: 10-20-2023 End: 10-20-2023 Office outpatient new 30 minutes Kait Wilson APRN.CHANNEL MACHINE OPERATOR Work Phone: [facility] [place] Comment on above: Ileostomy in place ( HCC) (Primary Dx); Status post proctocolectomy Start: 10-10-2023 Telephone encounter Doyle Jett MD Work Phone: [facility] Comment on above: Results Start: 10-06-2023 End: 10-06-2023 Subsequent hospital visit by physician Bone Density [facility] Work Phone: Radiology Comment on above: Asymptomatic postmen opausal status [Z78.0] Start: 10-03-2023 Documentation procedure Mammog lorie Coordinator [facility] Department Start: 10-03-2023 Letter encounter Mammography Coordinator [facility] Start: 10-03-2023 Telephone encounter Doyle Jett MD Work Phone: [facility] [place] Comment on above: Results Start: 09-29-2023 End: 09-29-2023 Subsequent hospital visit by physician Screen Mammo [facility] Comment on above: Screening mammogram for breast cancer [Z12.31] Start: 09-12-2023 Telephone encounter Doyle Jett MD Work Phone: [facility] Reader Comment on above: Results Start: 09-11-2023 End: 09-11-2023 Patient encounter procedure Franklyn Jett MD Work Phone: [facility] Comment on above: Moderate COPD (chron ic obstructive pulmonary disease) (HCC) (Primary Dx); Tobacco use disorder; Dyslipidemia; Ulcerative chronic pancolitis without complications (HCC); Ileostomy in place (HCC); Asymptomatic postmenopausal status; S/P colectomy; Lesion of skin of nose; Age-related osteoporosis without current pathological fracture; Screening mammogram for breast cancer Start: 03-16-2023 Telephone encounter Mckenzie messer APRN.CHANNEL MACHINE OPERATOR Work Phone: [facility] Reader Comment on above: Results Start: 03-10-2023 End: 03-10-2023 Patient encounter procedure Mckenzie Santiago APRN.CHANNEL MACHINE OPERATOR Work Phone: [facility] [place] Comment on above: Hyperlipidemia, mixe d (Primary Dx); Moderate COPD (chronic obstructive pulmonary disease) (HCC); Fall, initial encounter; Tobacco use disorder; Ileostomy in place (HCC); Left upper arm pain Start: 01-27-2023 ambulatory No Pcp JONA Conte Start: 01-20-2023 End: 01-20-2023 Subsequent hospital visit by physician Xr [facility] Work Phone: Radiology Comment on above: Acute pain of left s sameera [M25.512] Start: 01-20-2023 End: 01-20-2023 Patient encounter procedure Leroy Lawson PAO Work Phone: [facility] Comment on above: Acute pain of left s sameera (Primary Dx) Start: 01-11-2023 End: 01-11-2023 Emergency department patient visit Dr. Emily Hoang Work Phone: [facility]-Emergency Department Work Phone: Start: 11-11-2022 End: 11-11-[address] Emily Hoang Work Phone: [facility]-Pulmonary Medicine [facility] Work Phone: Start: 10-21-2022 End: 10-21-[address] Emily Hoang Work Phone: [facility]-Cat Scan, [facility] Work Phone: Start: 10-07-2022 Non-patient / Non-visit Dr. Stephanie Hoang Work Phone: [facility] Start: 10-06-2022 End: 10-06-[address] Emily Hoang Work Phone: [facility] Work Phone: Start: 10-06-2022 End: 10-06-[address] Emily Hoang Work Phone: [facility]-Pulmonary Services/Neurology Work Phone: Start: 09-28-2022 Telephone encounter Doyle Jett MD Work Phone: [facility] Comment on above: Results Start: 09-26-2022 Documentation procedure Mammog lorie Coordinator [facility] Start: 09-26-2022 Letter encounter Mammography Coordinator [facility] Start: 09-26-2022 End: 09-26-2022 Subsequent hospital visit by physician Screen Mammo [facility] Comment on above: Screening mammogram for breast cancer [Z12.31] Start: 09-20-2022 Telephone encounter Doyle Jett MD Work Phone: [facility] Reader Comment on above: Patient Update Start: 09-16-2022 Telephone encounter Doyle Jett MD Work Phone: [facility] Reader Comment on above: Medication Problem Start: 09-08-2022 End: 09-08-2022 Patient encounter procedure Franklyn Jett MD Work Phone: [facility] Reader Comment on above: Ileostomy in place ( HCC) (Primary Dx); Ulcerative (chronic) pancolitis with other complication (HCC); Hyperlipidemia, mixed; Age-related osteoporosis without current pathological fracture; Screening mammogram for breast cancer; Tobacco use disorder; Moderate COPD (chronic obstructive pulmonary disease) (HCC) Start: 10-04-2021 End: 10-04-[address] Emily Hoang Work Phone: [facility] Start: 09-24-2021 End: 09-24-2021 Patient encounter procedure KEYLA Carranza Work Phone: [facility]-Cat [facility], [facility] Start: 06-23-2021 End: 06-23-2021 Patient encounter procedure HAI RAMIRES Work Phone: [facility] Ultrasound Start: 06-22-2021 End: 06-22-2021 Patient encounter procedure HAI RAMIRES Work Phone: [facility]-Outpatient Bone Densitometry Start: 06-16-2021 End: 06-16-2021 Patient encounter procedure HAI RAMIRES Work Phone: [facility] Start: 06-07-2021 End: 06-07-[address] Eran Da Silva Work Phone: [facility]-Laboratory, [facility] Start: 04-22-2021 End: 04-22-[address] Eran Da Silva Work Phone: [facility]-Pulmonary Medicine [facility] Start: 04-19-2021 End: 04-19-[address] Eran Da Silva Work Phone: [facility] Scan, [facility] Start: 02-26-2021 Non-patient / Non-visit Dr. Luz Da Silva Work Phone: [facility] Start: 02-25-2021 Non-patient / Non-visit Dr. Luz Da Silva Work Phone: [facility] Start: 02-25-[address] Eran Da Silva Work Phone: [facility]-Pulmonary Services/Neurology Start: 02-24-[address] [facility] Start: 12-28-2020 End: 12-28-2020 ambulatory [facility] Start: 05-25-2020 End: 05-25-2020 ambulatory [facility] Procedures Date Procedure Procedure Detail Performing Clinician Start: 09-11-2023 Lipid 1996 panel - S triston or Plasma Franklyn Jett MD Work Phone: Start: 03-15-2023 Lipid 1996 panel - S triston or Plasma Mckenzie Santiago FILLER IN.CHANNEL MACHINE OPERATOR Work Phone: Start: 01-20-2023 Radex shoulder compl ete minimum 2 views Leroy Lawson APRN.CHANNEL MACHINE OPERATOR Work Phone: Start: 01-11-2023 CT of chest and abdomen Dr. Emily Hoang Work Phone: Start: 10-21-[address] Navid Hoang Work Phone: Start: 09-26-2022 End: 09-26-2022 Mammography Franklyn yates MD Work Phone: Start: 09-08-2022 Lipid 1996 panel - S triston or Plasma Leroy Lawson APRN.CNP Work Phone: Start: 09-24-2021 CT of chest without contrast KEYLA Carranza Work Phone: Start: 06-23-2021 Ultrasonography of breast PA-C [facility] Work Phone: Start: 06-22-2021 Dual energy X-ray absorptiometry PA-C [facility] Work Phone: Start: 06-22-2021 Screening mammography P A-C [facility] Work Phone: Start: 04-19-2021 CT of chest without contrast Dr. Eran Da Silva Work Phone: Plan of Treatment Date Care Activity Detail Author Start: 09-10-2028 Lipid panel Lipid Screening [facility] Start: 03-15-2028 Lipid panel Lipid Screening [facility] Start: 09-09-2027 Lipid 1996 panel - Serum or Plasma Lipid Screening [facility] Start: 09-09-2027 Lipid panel Lipid Screening [facility] Start: 09-09-2027 LIPID SCREEN LIPID SCREEN [facility] Start: 09-10-2026 Diabetes Screening Diabetes Screening [facility] Start: 03-15-2026 Diabetes Screening Diabetes Screening [facility] Start: 10-05-2025 Screening for osteoporosis Bone Density Screening [facility] Start: 09-08-2025 DIABETES SCREEN DIABETES SCREEN [facility] Start: 09-08-2025 Diabetes Screening Diabetes Screening [facility] Start: 09-06-2025 Annual PCP Team Chronic Disease Visit Annual PCP Team Chronic Disease Visit [facility] Start: 03-12-2025 Annual PCP Team Chronic Disease Visit Annual PCP Team Chronic Disease Visit [facility] Start: 11-25-2024 Influenza vaccination Influenza Vaccine (#1) [facility] Start: 10-16-2024 End: 10-16-2024 Patient encounter procedure 10/16/2024 11:10 AM EDT Appointment Mammogram [address] [place] [address] Dx: Encounter for screening mammogram for malignant neoplasm of breast [Z12.31] Mammogram Comment on above: Dx: Encounter for screening mammogram fo r malignant neoplasm of breast [Z12.31] Start: 09-10-2024 Annual PCP Team Chronic Disease Visit Annual PCP Team Chronic Disease Visit [facility] Start: 09-10-2024 Covid-19 Vaccine ( season) Covid-19 Vaccine ( season) [facility] Comment on above: Postponed from 11/25/2022 (Declined at t his time) Start: 09-10-2024 RSV Vaccine (1 - 1-dose 60+ series) RSV Vaccine (1 - 1-dose 60+ series) [facility] Comment on above: Postponed from 2008 (Declined at t his time) Start: 09-10-2024 RSV Vaccine (1 - 1-dose 75+ series) RSV Vaccine (1 - 1-dose 75+ series) [facility] Comment on above: Postponed from 08/11/2023 (Declined at t his time) Start: 09-10-2024 Urine microalbumin profile DTaP,Tdap,Td Vaccine (1 - Tdap) [facility] Comment on above: Postponed from [birth year]/11/1967 (Declined at t his time) Start: 03-27-2024 Advance Directive Discussion Advance Directive Discussion [facility] Start: 03-12-2024 End: 03-12-2024 Patient encounter procedure 03/12/2024 10:00 AM EST Office Visit Family [facility] [address] [place] [address] PodMckenzie herring APRN.CHANNEL MACHINE OPERATOR [address] [place] [address] 6 month follow up Family [facility] Comment on above: 6 month follow up Start: 03-10-2024 Annual PCP Team Chronic Disease Visit Annual PCP Team Chronic Disease Visit [facility] Start: 01-12-2024 Annual PCP Team Chronic Disease Visit Annual PCP Team Chronic Disease Visit [facility] Start: 11-26-2023 Covid-19 Vaccine ( season) Covid-19 Vaccine () [facility] Start: 11-26-2023 Covid-19 Vaccine () Covid-19 Vaccine () [facility] Start: 11-26-2023 [facility]enza [facility] Start: 10-20-2023 End: 10-20-2023 Patient encounter procedure 10/20/2023 10:30 AM EDT Office Visit [facility] [address] [place] [address] Kait Wilson APRN.[facility] [address] [place] [address] Ulcerative chronic pancolitis without complications (HCC) [K51.00]; Ileostomy in place (HCC) [Z93.2]; S/P colectomy [Z90.49] [facility] Comment on above: Ulcerative chronic pancolitis without co mplications (HCC) [K51.00]; Ileostomy in place (HCC) [Z93.2]; S/P colectomy [Z90.49] Start: 10-06-2023 End: 10-06-2023 Patient encounter procedure 10/06/2023 3:25 PM EDT Appointment Radiology [address] [place] [id number] Asymptomatic postmenopausal status [Z78.0]; Age-related osteoporosis without current pathological fracture [M81.0] Radiology Comment on above: Asymptomatic postmenopausal status [Z78. 0]; Age-related osteoporosis without current pathological fracture [M81.0] Start: 09-29-2023 End: 09-29-2023 Patient encounter procedure 09/29/2023 12:30 PM EDT Appointment Mammogram [address] [place], [place] [address] Screening mammogram for breast cancer [Z12.31] Mammogram Comment on above: Screening mammogram for breast cancer [Z 12.31] Start: 09-27-2023 Mammography [facility] Start: 09-27-2023 Screening for malignant neoplasm of breast Mammogram Screening [facility] Start: 09-09-2023 ANNUAL PCP TEAM CHRONIC DISEASE VISIT ANNUAL PCP TEAM CHRONIC DISEASE VISIT [facility] Start: 09-09-2023 BONE DENSITY BONE DENSITY [facility] Comment on above: Postponed from 2013 (Declined at t his time) Start: 09-09-2023 Bone Density Screening Bone Density Screening [facility] Comment on above: Postponed from 2013 (Declined at t his time) Start: 09-09-2023 COVID-19 VACCINE (3 - Booster for Pfizer series) COVID-19 VACCINE (3 - Booster for Pfizer series) [facility] Comment on above: Postponed from 10/08/2020 (Declined at t his time) Start: 09-09-2023 HEPATITIS C SCREENING HEPATITIS C SCREENING [facility] Comment on above: Postponed from 1966 (Declined at t his time) Start: 09-09-2023 Hepatitis C screening Hepatitis C Screening [facility] Comment on above: Postponed from 1966 (Declined at t his time) Start: 09-09-2023 Influenza vaccination LUNG CANCER SCREENING [facility] Comment on above: Postponed from 1998 (Declined at t his time) Start: 09-09-2023 Screening for malignant neoplasm of lung Lung Cancer Screening [facility] Comment on above: Postponed from 1998 (Declined at t his time) Start: 09-09-2023 Screening for osteoporosis Bone Density Screening [facility] Comment on above: Postponed from 2013 (Declined at t his time) Start: 09-09-2023 SHINGRIX VACCINE (2 of 3) SHINGRIX VACCINE (2 of 3) [facility] Comment on above: Postponed from 02/24/2009 (Declined at t his time) Start: 09-09-2023 Urine microalbumin profile [facility] Comment on above: Postponed from 08/11/1967 (Declined at t his time) Start: 08-11-2023 RSV Vaccine (1 - 1-dose 75+ series) RSV Vaccine (1 - 1-dose 75+ series) [facility] Start: 03-27-2023 Advance Directive Discussion Advance Directive Discussion [facility] Start: 03-27-2023 Behavioral Health Screening Behavioral Health Screening [facility] Start: 03-10-2023 End: 06-09-2023 Comprehensive metabolic 2000 panel - Serum or Plasma COMP METABOLIC PANEL Lab Routine Hyperlipidemia, mixed Expected: 03/10/2023, Expires: 06/09/2023 [facility] Work Phone: Comment on above: Expected: 03/10/2023, Expires: 4 Start: 03-10-2023 End: 06-09-2023 Lipid 1996 panel - Serum or Plasma LIPID PANEL BASIC Lab Routine Hyperlipidemia, mixed Expected: 03/10/2023, Expires: 06/09/2023 [facility] Work Phone: Comment on above: Expected: 03/10/2023, Expires: 4 Start: 01-11-2023 [facility] Start: 11-25-2022 Covid-19 Vaccine ( season) Covid-19 Vaccine () [facility] Start: 11-25-2022 Influenza vaccination [facility] Start: 11-23-2022 Shingrix Vaccine (3 of 3) Shingrix Vaccine (3 of 3) [facility] Start: 03-27-2022 ADVANCE DIRECTIVE DISCUSSION ADVANCE DIRECTIVE DISCUSSION [facility] Start: 03-27-2022 DEPRESSION ASSESSMENT DEPRESSION ASSESSMENT [facility] Start: 06-07-2021 Patient referral [facility] Work Phone: Start: 04-22-2021 Patient referral [facility] Work Phone: Start: 2013 Screening for osteoporosis Bone Density Screening [facility] Start: 07-25-2013 Medicare Annual Wellness Visit Medicare Annual Wellness Visit [facility] Start: 01-27-2009 MMR Vaccine (1 of 2 - Risk 2-dose series) MMR Vaccine (1 of 2 - Risk 2-dose series) [facility] Start: 2008 Hepatitis B Vaccine (1 of 3 - Risk 3-dose series) Hepatitis B Vaccine (1 of 3 - Risk 3-dose series) [facility] Start: 2008 RSV Vaccine (1 - 1-dose 60+ series) RSV Vaccine (1 - 1-dose 60+ series) [facility] Start: 1998 Screening for malignant neoplasm of lung Lung Cancer Screening [facility] Start: 1993 COLOGUARD (FIT-DNA) COLOGUARD (FIT-DNA) [facility] Start: 1993 Colonoscopy COLONOSCOPY [facility] Start: 1993 COLORECTAL CANCER SCREENING COLORECTAL CANCER SCREENING [facility] Start: [address] COLONOGRAPHY [facility] Start: 1993 FECAL OCCULT BLOOD FECAL OCCULT BLOOD [facility] Start: 1993 Screening for malignant neoplasm of colon [facility] Start: 1993 SIGMOIDOSCOPY SIGMOIDOSCOPY [facility] Start: 1988 Mammography MAMMOGRAM [facility] Start: 1978 Zoledronic acid therapy ALPHA-1 ANTITRYPSIN DEFICIENCY SCREENING [facility] Start: 08-11-1967 Hepatitis A Vaccine (1 of 2 - Risk 2-dose series) Hepatitis A Vaccine (1 of 2 - Risk 2-dose series) [facility] Start: 08-11-1967 Urine microalbumin profile DTaP,Tdap,Td Vaccine (1 - Tdap) [facility] Start: 1966 Anxiety Screening Anxiety Screening [facility] Start: 1966 Depression Screening Depression Screening [facility] Start: 1966 SPIROMETRY SPIROMETRY [facility] Start: 1958 Meningococcal B Vaccine: Consider Based On Risk (1 of 4 - Increased Risk) Meningococcal B Vaccine: Consider Based On Risk (1 of 4 - Increased Risk) [facility] End: 10-10-2024 BD DXA TRABECULAR BONE SCORE (TBS) BD DXA TRABECULAR BONE SCORE (TBS) Radiology Routine Asymptomatic postmenopausal status Age-related osteoporosis without current pathological fracture 1 Occurrences starting 09/11/2023 until 10/10/2024 [facility] Comment on above: 1 Occurrences starting 09/11/2023 until 10/10/2024 BD DXA TRABECULAR JOSE NE SCORE (TBS) BD DXA TRABECULAR BONE SCORE (TBS) Radiology Routine Asymptomatic postmenopausal status Age-related osteoporosis without current pathological fracture 10/06/2023 2:33 PM EDT [facility] Bilirubin measuremen t, urine [facility] CT Chest [facility] End: 10-16-2024 DBT Breast - bilateral screening [facility] Work Phone: Comment on above: ONCE for 1 Occurrences starting 10/17/19 until 10/16/2024 End: 10-10-2024 DXA Skeletal system.axial Views for bone density DXA-AXIAL SKELETON Radiology Routine Asymptomatic postmenopausal status Age-related osteoporosis without current pathological fracture 1 Occurrences starting 09/11/2023 until 10/10/2024 [facility] Work Phone: Comment on above: 1 Occurrences starting 09/11/2023 until 10/10/2024 DXA Skeletal system.axial Views for bone density DXA-AXIAL SKELETON Radiology Routine Asymptomatic postmenopausal status Age-related osteoporosis without current pathological fracture 10/06/2023 2:33 PM EDT [facility] Work Phone: Hemoglobin [Presence ] in Urine [facility] End: 10-08-2023 GURU SCREENING GURU SCREENING Radiology Routine Screening mammogram for breast cancer 1 Occurrences starting 09/08/2022 until 10/08/2023 [facility] Work Phone: Comment on above: 1 Occurrences starting 09/08/2022 until 10/08/2023 Measurement of keton es in urine using dipstick [facility] End: 10-10-2024 MG Breast Screening GURU SCREENING Radiology Routine Screening mammogram for breast cancer 1 Occurrences starting 09/11/2023 until 10/10/2024 [facility] Comment on above: 1 Occurrences starting 09/11/2023 until 10/10/2024 MG Breast Screening GURU SCREENIN G Radiology Routine Screening mammogram for breast cancer 09/29/2023 12:39 PM EDT [facility] Work Phone: End: 10-06-2025 MG Breast Screening GURU SCREENING Radiology Routine Encounter for screening mammogram for malignant neoplasm of breast 1 Occurrences starting 09/06/2024 until 10/06/2025 [facility] Comment on above: 1 Occurrences starting 09/06/2024 until 10/06/2025 Microscopic urinalysis [facility] End: 10-16-2025 MR Shoulder - left WO contrast MRI SHOULDER WO IVCON LEFT Radiology Routine Acute pain of left shoulder 1 Occurrences starting 09/16/2024 until 10/16/2025 [facility] Work Phone: Comment on above: 1 Occurrences starting 09/16/2024 until 10/16/2025 Patient Education ED Abdominal P ain Unkn Cause Fem ED Chest Pain, Noncardiac ED Esophageal Foreign Body, Resolved [facility] Work Phone: Patient referral [facility] Work Phone: pH of Urine [facility] Specific gravity of Urine [facility] Urinalysis, blood, qualitative [facility] Urine dipstick for glucose [facility] Urine dipstick for leukocyte esterase [facility] Urine dipstick for nitrite [facility] Urine dipstick for protein [facility] Urine examination [facility] Urine microscopy: epithelial cells [facility] Urine Microscopy: white cells [facility] Urobilinogen [Presence] in Urine [facility] End: 10-06-2025 XR Shoulder - left 3 Views XR SHOULDER GENERAL 3V OR MORE AP/TRUE AP/OTHER LEFT Radiology Routine Acute pain of left shoulder 1 Occurrences starting 09/06/2024 until 10/06/2025 [facility] Work Phone: Comment on above: 1 Occurrences starting 09/06/2024 until 10/06/2025 XR Shoulder - left 3 Views XR SHOULDER GENERAL 3V OR MORE AP/TRUE AP/OTHER LEFT Radiology Routine Acute pain of left shoulder 09/06/2024 11:55 AM EDT [facility] Work Phone: [facility] Immunizations Immunization Date Immunization Notes Care Provider Neetu monaco 03-06-2024 Seasonal trivalent influenza vaccine, adjuvanted, preservative free Mckenzie Santiago FILLER IN.KARLOS Work Phone: [facility] 03-06-2024 influenza virus vaccine, unspecified formulation Screen [facility] 02-03-2023 influenza virus vaccine, unspecified formulation Screen [facility] 09-28-2022 zoster vaccine recombinant Franklyn Jett MD Work Phone: [facility] 01-24-2022 influenza (HD-IIV4) vaccine, age 65+ yr, high dose, quadrivalent, PF (FLUZONE HIGH-DOSE) Franklyn Jett MD Work Phone: [facility] Work Phone: 01-24-2022 influenza virus vaccine, unspecified formulation Leroy Lawson PAO Work Phone: [facility] 01-29-2020 influenza (aIIV4) vaccine, age 65+ yr, quadrivalent, PF (FLUAD QUAD) Franklyn Jett MD Work Phone: [facility] Work Phone: 01-29-2019 influenza, injectabl e, quadrivalent, contains preservative Franklyn Jett MD Work Phone: [facility] Work Phone: 01-22-2019 influenza, high dose seasonal, preservative-free Franklyn Jett MD Work Phone: [facility] Work Phone: 01-04-2017 influenza, high dose seasonal, preservative-free Franklyn Jett MD Work Phone: [facility] 01-24-2016 pneumococcal polysaccharide vaccine, 23 valent Franklyn Jett MD Work Phone: [facility] 10-24-2014 pneumococcal conjuga te vaccine, 13 valent Franklyn Jett MD Work Phone: [facility] Work Phone: 01-06-2014 influenza, seasonal, injectable Franklyn Jett MD Work Phone: [facility] Work Phone: 10-15-2013 pneumococcal polysaccharide vaccine, 23 valent Franklyn Jett MD Work Phone: [facility] Work Phone: 12-30-2008 zoster vaccine, live Bishnu Jett MD Work Phone: [facility] Work Phone: 02-06-2007 influenza virus vaccine, whole virus Franklyn Jett MD Work Phone: [facility] Work Phone: Payers Date Payer Category Payer Self-pay [id number] 2016 [employer] ANTHEM ME DICARE SUPPLEMENT [id number] 2016 Unknown ANTHEM ANTHEM ME DICARE SUPPLEMENT [id number] 2016-Present [phone] [address] [place] [address] Indemnity [id number] 2016 Unknown [id number] 2013 Medicare [id number] 2013 Medicare [id number] 1950 Unknown [id number] 1950 Unknown [id number] Unknown SELF PAY INSURANCE [id number] Unknown [employer] [id number] Unknown [facility] [id number] Unknown [id number] Unknown [id number] Unknown [id number] Social History Date Type Detail Facility Start: 06-07-2021 End: 01-11-2023 Tobacco smoking status OHIS Unknown if ever smoked [facility] Start: 1950 Sex Assigned At Female W [facility] Start: 09-08-2022 End: 09-06-2024 Tobacco smoking status NHIS Smokes tobacco daily [facility] Work Phone: History of tobacco use Cigarette Smoker C [facility] Work Phone: Start: 09-08-2022 End: 09-06-2024 Cigarettes smoked current (pack per day) - Reported 0.5 [facility] Start: 09-08-2022 End: 09-06-2024 Tobacco use and exposure Smokeless tobacco non-user [facility] Work Phone: Start: 09-08-2022 End: 09-06-2024 Alcohol intake Current non-drinker of alcohol (finding) [facility] Start: 1950 Sex Assigned At Not on file C [facility] Start: 09-08-2022 End: 01-20-2023 Tobacco use panel [facility] National Score (1-10 0), lower number is lower risk 54 [facility] Functional Status Date Assessment Result Facility 05-09-2017 Are you deaf, or do you have serious difficulty hearing No 05/09/2017 12:56 PM EST Pierce [place] No [facility] 05-09-2017 Are you blind, or do you have serious difficulty seeing, even when wearing glasses No 05/09/2017 12:56 PM EST [facility] 05-09-2017 Do you have serious difficulty walking or climbing stairs No 05/09/2017 12:56 PM EST [facility] [place] No [facility] 05-09-2017 Do you have difficul ty dressing or bathing No 05/09/2017 12:56 PM EST [facility] 05-09-2017 Because of a physica l, mental, or emotional condition, do you have difficulty doing errands alone such as visiting a physician's office or shopping No 05/09/2017 12:56 PM EST [facility] No [facility] Mental Status Date Assessment Result Facility 05-09-2017 Because of a physica l, mental, or emotional condition, do you have serious difficulty concentrating, remembering, or making decisions No 05/09/2017 12:56 PM EST [facility] No [facility] Clinical Notes 01-03-2017 to 10-16-2024 Sun Pereira Mammo Tech - 10/16/2024 11:10 AM EDTTelephone Encounter - Diego Alejandra LPN - 09/17/2024 3:46 PM EDTTelephone Encounter - Diego Alejandra LPN - 09/17/2024 3:46 PM EDT Note Date & Type Note Facility 10-16-2024 History of Presen t illness Narrative Radiology Service Progress Note PATIENT NAME: Sharita Traore DATE OF SERVICE: October 16, 2024 TIME: 11:01 AM PATIENT IDENTITY VERIFICATION COMPLETED USING TWO (2) IDENTIFIERS: Name and Date of confirmed by patient verbally. FALL SCREENING: Has the patient had 2 falls in the last year or 1 fall with injury or currently using an Ambulatory Assistive Device (Walker, Cane, Wheelchair, Crutches, etc.)? No PATIENT GENDER DATA: Assigned female at . status: : No status: NO. PATIENT RELEVANT IMPLANT DATA REVIEWED: Not Applicable PATIENT PRESENTS WITH AN IMPLANTABLE OR ATTACHED STONE LAYOUT MARKER: No RADIOLOGY DEPARTMENT: Mammography PERIPHERAL IV DATA: Not applicable SIGNED BY: Chinedu Fuentes October 16, 2024 11:01 AM documented in this encounter [facility] 10-16-2024 Note HNO ID: [id number] Author: SUN PEREIRA Mammo Tech Service: ? Author Type: Pantograph Machine Operator Type: Progress Notes Filed: 10/16/2024 11:01 Note Text: Radiology Service Progress Note PATIENT NAME: Sharita Traore DATE OF SERVICE: October 16, 2024 TIME: 11:01 AM PATIENT IDENTITY VERIFICATION COMPLETED USING TWO (2) IDENTIFIERS: Name and Date of confirmed by patient verbally. FALL SCREENING: Has the patient had 2 falls in the last year or 1 fall with injury or currently using an Ambulatory Assistive Device (Walker, Cane, Wheelchair, Crutches, etc.)? No PATIENT GENDER DATA: Assigned female at . status: : No status: NO. PATIENT RELEVANT IMPLANT DATA REVIEWED: Not Applicable PATIENT PRESENTS WITH AN IMPLANTABLE OR ATTACHED STONE LAYOUT MARKER: No RADIOLOGY DEPARTMENT: Mammography PERIPHERAL IV DATA: Not applicable SIGNED BY: Sun Pereira [employer] October 16, 2024 11:01 AM [facility] 09-17-2024 Telephone encounter Note Patient telephoned and notified of below. Voices understanding. Diego Alejandra LPN [facility] 09-17-2024 Miscellaneous Notes Patient telephoned and notified of below. Voices understanding. Diego Alejandra LPN I sent over prescription for Celebrex- one tablet twice a day. She needs to stop the Naproxen and also not take any other OTC NSAID products. I placed order for MRI- not sure if insurance will pay without doing formal PT but we can try. Mckenzie Santiago APRN.KARLOS Patient agrees to Celebrex. States she's already doing the exercises at home and alternating ice and heat. States the heat helps more. Celebrex to [facility] on file. Tatiana Carrero MA Result Note I can change medication to Celebrex. I recommend physical therapy and use of ice or heat for 15 minutes at a time. Mckenzie Santiago APRN.CHANNEL MACHINE OPERATOR XR SHOULDER GENERAL 3V OR MORE AP/TRUE AP/OTHER LEFT Patient notified. Asking if there is anything else that she can do for the pain. What next steps would be as the naproxen doesn't last very long. Diego Alejandra LPN ----- Message from Mckenzie Santiago APRN.CHANNEL MACHINE OPERATOR sent at 09/13/2024 6:24 AM EDT ----- Shoulder xray shows mild arthritic changes otherwise no acute fracture or dislocation is seen. Mckenzie Santiago APRN.CHANNEL MACHINE OPERATOR documented in this encounter [facility] 09-17-2024 Note HNO ID: [id number] Author: DESTINY MADERA MA Service: ? Author Type: Wire Coiler Machine Operator Type: Progress Notes Filed: 09/17/2024 14:48 Note Text: POPULATION HEALTH NAVIGATION OUTREACH Action/FYI Spoke to patient's niece. She states they will do that in February and declined scheduling at this particular time. She will call back to schedule. Topic Due (Y or N) Comments Annual Wellness Exam Yes PCP Follow up No Colorectal Cancer Screening No A1C No HTN/Controlling BP No HCC Yes Updated appointment notes No Reason for Outreach Care Gap/HCC or Scheduling Wellness Visits Care Gaps due: Medicare Annual Wellness Visit Patient Contacted: Spoke to patient/parent/or legal guardian Patient identified by name and : Yes Care Gap/HCC/Scheduling Wellness actions taken: Patient declined: Patient will contact office directly to schedule HCC related Navigation Signature: Destiny Madera MA September 17, 2024 2:47 PM [facility] 09-17-2024 History of Presen t illness Narrative POPULATION HEALTH NAVIGATION OUTREACH Action/FYI Spoke to patient's niece. She states they will do that in February and declined scheduling at this particular time. She will call back to schedule. Topic Due (Y or N) Comments Annual Wellness Exam Yes PCP Follow up No Colorectal Cancer Screening No A1C No HTN/Controlling BP No HCC Yes Updated appointment notes No Reason for Outreach Care Gap/HCC or Scheduling Wellness Visits Care Gaps due: Medicare Annual Wellness Visit Patient Contacted: Spoke to patient/parent/or legal guardian Patient identified by name and : Yes Care Gap/HCC/Scheduling Wellness actions taken: Patient declined: Patient will contact office directly to schedule HCC related Navigation Signature: Destiny Madera MA September 17, 2024 2:47 PM documented in this encounter [facility] 09-17-2024 Note Patient Outreach (NE TNAV) SHARITA TRAORE ([id number]) 1950 F Date Time Provider Department 09/17/24 DESTINY MADERA During your visit today, we recorded the following information about you: Destiny Madera MA 09/17/2024 2:48 PM Signed POPULATION HEALTH NAVIGATION OUTREACH Action/SAM Spoke to patient's niece. She states they will do that in February and declined scheduling at this particular time. She will call back to schedule. Topic Due (Y or N) Comments Annual Wellness Exam Yes PCP Follow up No Colorectal Cancer Screening No A1C No HTN/Controlling BP No HCC Yes Updated appointment notes No Reason for Outreach Care Gap/HCC or Scheduling Wellness Visits Care Gaps due: Medicare Annual Wellness Visit Patient Contacted: Spoke to patient/parent/or legal guardian Patient identified by name and : Yes Care Gap/HCC/Scheduling Wellness actions taken: Patient declined: Patient will contact office directly to schedule HCC related Navigation Signature: Destiny Madera MA September 17, 2024 2:47 PM Allergies As of Date: 09/17/2024 Noted Allergy Reaction LIPITOR (ATORVASTATIN) 09/20/2022 6 - Diarrhea METRONIDAZOLE 01/26/2017 15 - Contraindication-Medical Arana* Comments: Neuropathy Date Reviewed: 09/06/2024 Reviewed by: Diego Alejandra LPN - Fully Assessed Reason for Visit: Population Health Navigation Outreach [3910] Cmt: Reader/Workbench/ACO Prescriptions as of 09/17/2024 - celecoxib (CELEBREX) 100 mg capsule Take 1 capsule by mouth two times a day. - rosuvastatin (CRESTOR) 20 mg tablet Take 1 tablet by mouth daily at bedtime. - calcium carbonate (CALCIUM 600 ORAL) Take 1 tablet by mouth once daily. - cholecalciferol (VITAMIN D-3) 5,000 unit tab Take 5,000 Units by mouth once daily. - miconazole (ZEASORB AF) 2 % powder Apply 1 application to affected area as needed. 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 She needs to stop the Naproxen and also not take any other OTC NSAID products. I placed order for MRI- not sure if insurance will pay without doing formal PT but we can try. Mckenzie Santiago APRN.KARLOS [facility] 09-16-2024 Telephone encounter Note Patient agrees to Celebrex. States she's already doing the exercises at home and alternating ice and heat. States the heat helps more. Celebrex to [facility] on file. Tatiana Carrero MA [facility] 09-16-2024 Telephone encounter Note Result Note I can change medication to Celebrex. I recommend physical therapy and use of ice or heat for 15 minutes at a time. Mckenzie Santiago APRN.CHANNEL MACHINE OPERATOR XR SHOULDER GENERAL 3V OR MORE AP/TRUE AP/OTHER LEFT [facility] 09-13-2024 Telephone encounter Note Patient notified. Asking if there is anything else that she can do for the pain. What next steps would be as the naproxen doesn't last very long. Diego Alejandra LPN [facility] 09-13-2024 Telephone encounter Note ----- Message from Mckenzie Santiago APRN.KARLOS sent at 09/13/2024 6:24 AM EDT ----- Shoulder xray shows mild arthritic changes otherwise no acute fracture or dislocation is seen. Mckenzie Santiago APRN.KARLOS [facility] 09-11-2024 Telephone encounter Note Patients niece telephoned and notified. Voices understanding. Diego Alejandra LPN [facility] 09-11-2024 Miscellaneous Notes Patients niece telephoned and notified. Voices understanding. Diego Alejandra LPN She can take an extra Naproxen Mckenzie Santiago APRN.KARLOS Niece Azucena checking on xray results. States patient is having a lot of pain and asking if patient can take an xtra naproxen. Advised Azucena since pt take naproxen twice a day, try giving pt a tylenol. Azucena agreeable. Phoned radiology pss and spoke with Ira, who checked on this and came back to phone to report xrays can take 3-5 business days- not counting weekends. Ira teams messaged radiology dept, Radha Chambers to check for updates. Can we call radiology to see what is taking so long Mckenzie Santiago APRN.KARLOS patient is calling in requesting results of her xray that she had done on 09/06/24. status in [facility] states still in process. patient is wanting to know if we can get this read. please review and advise, patient needs called with information documented in this encounter [facility] 09-11-2024 Telephone encounter Note She can take an extra Naproxen Mckenzie Santiago APRN.CNP T [facility] 09-11-2024 Telephone encounter Note Zhanna Azucena checking on xray results. States patient is having a lot of pain and asking if patient can take an xtra naproxen. Advised Azucena since pt take naproxen twice a day, try giving pt a tylenol. Azucena agreeable. Phoned radiology pss and spoke with Ira, who checked on this and came back to phone to report xrays can take 3-5 business days- not counting weekends. Ira teams messaged radiology dept, Radha Chambers to check for updates. [facility] 09-11-2024 Telephone encounter Note Can we call radiology to see what is taking so long Mckenzie Santiago APRN.CHANNEL MACHINE OPERATOR [facility] 09-11-2024 Telephone encounter Note patient is calling in requesting results of her xray that she had done on 09/06/24. status in [facility] states still in process. patient is wanting to know if we can get this read. please review and advise, patient needs called with information [facility] 09-06-2024 History of Presen t illness Narrative Radiology Service Progress Note PATIENT NAME: Sharita Traore DATE OF SERVICE: September 06, 2024 TIME: 11:40 AM PATIENT IDENTITY VERIFICATION COMPLETED USING TWO (2) IDENTIFIERS: Name and Date of confirmed by patient verbally. FALL SCREENING: Has the patient had 2 falls in the last year or 1 fall with injury or currently using an Ambulatory Assistive Device (Walker, Cane, Wheelchair, Crutches, etc.)? No PATIENT GENDER DATA: Assigned female at . status: : No status: NO. PATIENT RELEVANT IMPLANT DATA REVIEWED: Not Applicable PATIENT PRESENTS WITH AN IMPLANTABLE OR ATTACHED STONE LAYOUT MARKER: No RADIOLOGY DEPARTMENT: General X-ray: Exam(s) Completed: Upper Extremity X-Ray(s): Shoulder, AP / TRUE AP / AXILLARY left PERIPHERAL IV DATA: Not applicable SIGNED BY: Gera Canada September 06, 2024 11:40 AM documented in this encounter [facility] 09-06-2024 Note HNO ID: [id number] Author: SARAH BRYAN Tech Service: ? Author Type: Technologist Type: Progress Notes Filed: 09/06/2024 11:55 Note Text: Radiology Service Progress Note PATIENT NAME: Sharita Traore DATE OF SERVICE: September 06, 2024 TIME: 11:40 AM PATIENT IDENTITY VERIFICATION COMPLETED USING TWO (2) IDENTIFIERS: Name and Date of confirmed by patient verbally. FALL SCREENING: Has the patient had 2 falls in the last year or 1 fall with injury or currently using an Ambulatory Assistive Device (Walker, Cane, Wheelchair, Crutches, etc.)? No PATIENT GENDER DATA: Assigned female at . status: : No status: NO. PATIENT RELEVANT IMPLANT DATA REVIEWED: Not Applicable PATIENT PRESENTS WITH AN IMPLANTABLE OR ATTACHED STONE LAYOUT MARKER: No RADIOLOGY DEPARTMENT: General X-ray: Exam(s) Completed: Upper Extremity X-Ray(s): Shoulder, AP / TRUE AP / AXILLARY left PERIPHERAL IV DATA: Not applicable SIGNED BY: Gera Canada September 06, 2024 11:40 AM [facility] 09-06-2024 Instructions Mckenzie Santiago APRN.KARLOS - 09/06/2024 11:31 AM EDT - Take naproxen twice daily with food as prescribed; do not take other NSAID products (like ibuprofen, Advil, Motrin, Aleve) while on this medication. You may continue Tylenol if needed. - Apply ice or heat to your shoulder and arm for 15 minutes at a time to help relieve pain. - Perform the home arm exercises provided, keeping your arm mobile but not pushing past pain. - Obtain the left shoulder/arm x-ray today as arranged. - Your naproxen prescription has been sent to [facility] pharmacy. documented in this encounter [facility] 09-06-2024 Note HNO ID: [id number] Author: MCKENZIE SANTIAGO APRN.KARLOS Service: ? Author Type: Nurse Practitioner Type: Progress Notes Filed: 09/06/2024 11:42 Note Text: 09/06/2024 Patient presents with: Arm Pain: Left arm pain x2 weeks after heavy lifting Recording using [employer]™ software for draft documentation of the visit was discussed with the patient/authorized registered representative; all questions welcomed and answered. Patient/authorized registered representative agreed to proceed SUBJECTIVE: This is a 74 year old that is here today for Above Complaints.. Left Arm Pain: - Onset after lifting 15 bags of mulch in July. - Pain extends from the shoulder to the elbow, sometimes further down the arm. - Described as constant, with both sharp and burning sensations. - Aggravated by sitting with the arm bent; alleviated by standing with the arm straight. - Keeps her awake at night. - No known recent trauma; similar pain occurred a few years ago after lifting a push mower. - Denies swelling, redness, numbness, or tingling. - Tried Tylenol, ibuprofen, and topical patches with minimal relief. - Right-handed. 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 Da Silva Osteoporosis S/P colectomy Skin cancer removed in November 2023- not sure what kind Tobacco use disorder Trigger finger of right hand ALLERGIES Lipitor [Atorvastatin] and Metronidazole MEDICATIONS Current Outpatient Medications Medication Sig naproxen (NAPROSYN) 500 mg tablet Take 1 tablet by mouth two times a day with meals. rosuvastatin (CRESTOR) 20 mg tablet Take 1 tablet by mouth daily at bedtime. calcium carbonate (CALCIUM 600 ORAL) Take 1 tablet by mouth once daily. cholecalciferol (VITAMIN D-3) 5,000 unit tab Take 5,000 Units by mouth once daily. miconazole (ZEASORB AF) 2 % powder Apply 1 application to affected area as needed. No current facility-administered medications for this visit. Medications and allergies reviewed by this provider. SOCIAL HISTORY Social History Tobacco Use Smoking status: Every Day Current packs/day: 0.50 Average packs/day: 0.5 packs/day for 60.0 years (30.0 ttl pk-yrs) Types: Cigarettes Smokeless tobacco: Never Substance Use Topics Alcohol use: No Drug use: No REVIEW OF SYSTEMS Musculoskeletal: (+) left shoulder and arm pain, (-) swelling Skin: (-) erythema Neurological: (-) numbness, (-) tingling OBJECTIVE: BP 132/78 Pulse 70 Resp 18 Wt 52.2 kg (115 lb) SpO2 98% BMI 18.28 kg/m? . Vital signs reviewed by this provider. GENERAL: NAD, alert and oriented. SKIN: Unremarkable, no rash or skin lesions to exposed skin HEAD: Normocephalic. EYES: conjunctiva clear. LUNGS: Clear to auscultation bilaterally, no wheezes/rhonchi/rales. HEART: Regular rate and rhythm, no murmurs. No ectopy. EXTREMITIES: Left arm with limited range of motion and significant pain on movement, particularly at the AC joint. No swelling or erythema noted. Right arm with normal strength and range of motion. No deformities, no skin discoloration, no edema. Positive Quispe and Neer. Negative empty can test. 2+ radial pulse NEURO: Awake, alert and oriented x3, cranial nerves II-XII grossly intact, normal gait, no involuntary motions. Depression Screening Never done Anxiety Screening Never done Lung Cancer Screening Never done Medicare Annual Wellness Visit Never done Covid-19 Vaccine( season) due on 11/26/2023 Advance Directive Discussion Never done DTaP,Tdap,Td Vaccine(1 - Tdap) due on 09/10/2024 RSV Vaccine(1 - 1-dose 75+ series) due on 09/10/2024 Annual PCP Team Chronic Disease Visit due on 09/06/2025 Bone Density Screening due on 10/05/2025 Diabetes Screening due on 09/10/2026 Influenza Vaccine Completed Shingrix Vaccine Completed Pneumococcal Vaccine: 50+ Completed Mammogram Screening Discontinued Hepatitis C Screening Discontinued 1. Acute pain of left shoulder (M25.512) - Onset after heavy lifting activities; pain radiates from shoulder to elbow, described as sharp and burning, exacerbated by certain movements and positions. - No history of surgery on the affected arm; no reported numbness or tingling. - Physical examination reveals tenderness at the AC joint and limited range of motion due to pain. - Differential diagnosis includes tendinitis or possible small rotator cuff tear. - Ordered X-ray to evaluate for arthritis or other bony abnormalities. - Prescribed naproxen to be taken twice daily with food; advised against concurrent use of other NSAIDs. - Recommended use of ice or heat for 15 minutes at a time to alleviate pain. - Provided home exercises to maintain mobility and prevent stiffness; instructed not to push exercises past the point of pain. - Patient understands and agrees with the treatment plan. Mckenzie Podlogar, FILLER IN.CHANNEL MACHINE OPERATOR Prescription in (more content not included)... [facility] 09-06-2024 History of Presen t illness Narrative 09/06/2024 Patient presents with: Arm Pain: Left arm pain x2 weeks after heavy lifting Recording using [employer]™ software for draft documentation of the visit was discussed with the patient/authorized registered representative; all questions welcomed and answered. Patient/authorized registered representative agreed to proceed SUBJECTIVE: This is a 74 year old that is here today for Above Complaints.. Left Arm Pain: - Onset after lifting 15 bags of mulch in July. - Pain extends from the shoulder to the elbow, sometimes further down the arm. - Described as constant, with both sharp and burning sensations. - Aggravated by sitting with the arm bent; alleviated by standing with the arm straight. - Keeps her awake at night. - No known recent trauma; similar pain occurred a few years ago after lifting a push mower. - Denies swelling, redness, numbness, or tingling. - Tried Tylenol, ibuprofen, and topical patches with minimal relief. - Right-handed. 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 Da Silva Osteoporosis S/P colectomy Skin cancer removed in November 2023- not sure what kind Tobacco use disorder Trigger finger of right hand ALLERGIES Lipitor [Atorvastatin] and Metronidazole MEDICATIONS Current Outpatient Medications Medication Sig naproxen (NAPROSYN) 500 mg tablet Take 1 tablet by mouth two times a day with meals. rosuvastatin (CRESTOR) 20 mg tablet Take 1 tablet by mouth daily at bedtime. calcium carbonate (CALCIUM 600 ORAL) Take 1 tablet by mouth once daily. cholecalciferol (VITAMIN D-3) 5,000 unit tab Take 5,000 Units by mouth once daily. miconazole (ZEASORB AF) 2 % powder Apply 1 application to affected area as needed. No current facility-administered medications for this visit. Medications and allergies reviewed by this provider. SOCIAL HISTORY Social History Tobacco Use Smoking status: Every Day Current packs/day: 0.50 Average packs/day: 0.5 packs/day for 60.0 years (30.0 ttl pk-yrs) Types: Cigarettes Smokeless tobacco: Never Substance Use Topics Alcohol use: No Drug use: No REVIEW OF SYSTEMS Musculoskeletal: (+) left shoulder and arm pain, (-) swelling Skin: (-) erythema Neurological: (-) numbness, (-) tingling OBJECTIVE: BP 132/78 Pulse 70 Resp 18 Wt 52.2 kg (115 lb) SpO2 98% BMI 18.28 kg/m . Vital signs reviewed by this provider. GENERAL: NAD, alert and oriented. SKIN: Unremarkable, no rash or skin lesions to exposed skin HEAD: Normocephalic. EYES: conjunctiva clear. LUNGS: Clear to auscultation bilaterally, no wheezes/rhonchi/rales. HEART: Regular rate and rhythm, no murmurs. No ectopy. EXTREMITIES: Left arm with limited range of motion and significant pain on movement, particularly at the AC joint. No swelling or erythema noted. Right arm with normal strength and range of motion. No deformities, no skin discoloration, no edema. Positive Quispe and Neer. Negative empty can test. 2+ radial pulse NEURO: Awake, alert and oriented x3, cranial nerves II-XII grossly intact, normal gait, no involuntary motions. Depression Screening Never done Anxiety Screening Never done Lung Cancer Screening Never done Medicare Annual Wellness Visit Never done Covid-19 Vaccine(2023- season) due on 11/26/2023 Advance Directive Discussion Never done DTaP,Tdap,Td Vaccine(1 - Tdap) due on 09/10/2024 RSV Vaccine(1 - 1-dose 75+ series) due on 09/10/2024 Annual PCP Team Chronic Disease Visit due on 09/06/2025 Bone Density Screening due on 10/05/2025 Diabetes Screening due on 09/10/2026 Influenza Vaccine Completed Shingrix Vaccine Completed Pneumococcal Vaccine: 50+ Completed Mammogram Screening Discontinued Hepatitis C Screening Discontinued 1. Acute pain of left shoulder (M25.512) - Onset after heavy lifting activities; pain radiates from shoulder to elbow, described as sharp and burning, exacerbated by certain movements and positions. - No history of surgery on the affected arm; no reported numbness or tingling. - Physical examination reveals tenderness at the AC joint and limited range of motion due to pain. - Differential diagnosis includes tendinitis or possible small rotator cuff tear. - Ordered X-ray to evaluate for arthritis or other bony abnormalities. - Prescribed naproxen to be taken twice daily with food; advised against concurrent use of other NSAIDs. - Recommended use of ice or heat for 15 minutes at a time to alleviate pain. - Provided home exercises to maintain mobility and prevent stiffness; instructed not to push exercises past the point of pain. - Patient understands and agrees with the treatment plan. Mckenzie Santiago APRN.CHANNEL MACHINE OPERATOR Prescription instructions reviewed with patient as applicable. Patient advised if symptoms do not improve or if symptoms worsen sooner, to contact their primary care physician. Potential red flag symptoms discussed with the patient. Reviewed appropriate action plan to take if red flag symptoms occur. Patient agreeable to treatment plan. Medical Decision Making: Problems: Low: Acute, uncomplicated illness or injury Data: Unique test(s) ordered: 1 Risk: Moderate: Drug management Medical Decision Making Level: 3 - Low documented in this encounter [facility] 08-13-2024 Note HNO ID: [id number] Author: KEENA VICENTE MA Service: ? Author Type: Wire Coiler Machine Operator Type: Progress Notes Filed: 08/13/2024 08:18 Note Text: POPULATION HEALTH NAVIGATION OUTREACH Action/FYI Patient replied back wanting to know the difference between the two visit types. Sent Medicare wellness info and explanation. Reason for Outreach Returned Call/MyChart Patient Contacted: Spoke to patient/parent/or legal guardian Patient identified by name and date of : Yes Returned call/MyChart actions taken: sones message sent Navigation Signature: Keena Vicente MA August 13, 2024 8:17 AM [facility] 08-08-2024 Note HNO ID: [id number] Author: KEENA VICENTE MA Service: ? Author Type: Wire Coiler Machine Operator Type: Progress Notes Filed: 08/08/2024 15:09 Note Text: POPULATION HEALTH NAVIGATION OUTREACH Action/FYI Patient replied that she thought she just had a wellness appt. Sent reply back that it was for a follow up. Reason for Outreach Returned Call/MyChart Patient Contacted: Spoke to patient/parent/or legal guardian Patient identified by name and date of : Yes Returned call/MyChart actions taken: MyChart message sent Navigation Signature: Keena Vicente MA August 08, 2024 3:08 PM [facility] 08-08-2024 History of Presen t illness Narrative POPULATION HEALTH NAVIGATION OUTREACH Action/FYI Patient replied that she thought she just had a wellness appt. Sent reply back that it was for a follow up. Reason for Outreach Returned Call/MyChart Patient Contacted: Spoke to patient/parent/or legal guardian Patient identified by name and date of : Yes Returned call/MyChart actions taken: MyChart message sent Navigation Signature: Keena Vicente MA August 08, 2024 3:08 PM POPULATION HEALTH NAVIGATION OUTREACH Action/FYI Called and left a message to call [phone], to discuss health maintenance items that are due. Sent My Chart message. PCP appt: Wellness due for 2024 due: HCC gaps COLORECTAL SCREENING Reason for Outreach Care Gap/HCC or Scheduling Wellness Visits Care Gaps due: Medicare Annual Wellness Visit Colorectal Cancer Screening Patient Contacted: Unable or unnecessary to reach patient: Left message MyChart message sent HCC related Navigation Signature: Keena Vicente MA August 08, 2024 12:07 PM documented in this encounter [facility] 08-08-2024 Note HNO ID: [id number] Author: KEENA VICENTE MA Service: ? Author Type: Wire Coiler Machine Operator Type: Progress Notes Filed: 08/08/2024 12:07 Note Text: POPULATION HEALTH NAVIGATION OUTREACH Action/FYI Called and left a message to call [phone], to discuss health maintenance items that are due. Sent My Chart message. PCP appt: Wellness due for 2024 HM due: HCC gaps COLORECTAL SCREENING Reason for Outreach Care Gap/HCC or Scheduling Wellness Visits Care Gaps due: Medicare Annual Wellness Visit Colorectal Cancer Screening Patient Contacted: Unable or unnecessary to reach patient: Left message sones message sent HCC related Navigation Signature: Keena Vicente MA August 08, 2024 12:07 PM [facility] 08-08-2024 Note Patient Outreach (NE TNAV) SHARITA TRAORE ([id number]) 1950 F Date Time Provider Department 08/08/24 KEENA VICENTE During your visit today, we recorded the following information about you: Keena Vicente MA 08/08/2024 12:07 PM Signed POPULATION HEALTH NAVIGATION OUTREACH Action/FYI Called and left a message to call [phone], to discuss health maintenance items that are due. Sent My Chart message. PCP appt: Wellness due for 2024 HM due: HCC gaps COLORECTAL SCREENING Reason for Outreach Care Gap/HCC or Scheduling Wellness Visits Care Gaps due: Medicare Annual Wellness Visit Colorectal Cancer Screening Patient Contacted: Unable or unnecessary to reach patient: Left message [employer] message sent HCC related Navigation Signature: Keena Vicente MA August 08, 2024 12:07 PM Keena Vicente MA 08/08/2024 3:09 PM Signed POPULATION HEALTH NAVIGATION OUTREACH Action/FYI Patient replied that she thought she just had a wellness appt. Sent reply back that it was for a follow up. Reason for Outreach Returned Call/MyChart Patient Contacted: Spoke to patient/parent/or legal guardian Patient identified by name and date of : Yes Returned call/MyChart actions taken: MyChart message sent Navigation Signature: Keena Vicente MA August 08, 2024 3:08 PM Keena Vicente CHE[facility] 08/13/2024 8:18 AM Signed POPULATION HEALTH NAVIGATION OUTREACH Action/FYI Patient replied back wanting to know the difference between the two visit types. Sent Medicare wellness info and explanation. Reason for Outreach Returned Call/MyChart Patient Contacted: Spoke to patient/parent/or legal guardian Patient identified by name and date of : Yes Returned call/MyChart actions taken: MyChart message sent Navigation Signature: Keena Vicente CHELE August 13, 2024 8:17 AM Allergies As of Date: 08/08/2024 Noted Allergy Reaction LIPITOR (ATORVASTATIN) 09/20/2022 6 - Diarrhea METRONIDAZOLE 01/26/2017 15 - Contraindication-Medical Arana* Comments: Neuropathy Date Reviewed: 03/12/2024 Reviewed by: Diego Alejandra LPN - Fully Assessed Reason for Visit: Population Health Navigation Outreach [3910] Cmt: ACO, High Risk Prescriptions as of 08/13/2024 - rosuvastatin (CRESTOR) 20 mg tablet Take 1 tablet by mouth daily at bedtime. - calcium carbonate (CALCIUM 600 ORAL) Take 1 tablet by mouth once daily. - cholecalciferol (VITAMIN D-3) 5,000 unit tab Take 5,000 Units by mouth once daily. - miconazole (ZEASORB AF) 2 % powder Apply 1 application to affected area as needed. 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 Author Type: Wire Coiler Machine Operator Type: Progress Notes Filed: 07/08/2024 09:46 Note Text: POPULATION HEALTH NAVIGATION OUTREACH Action/FYI Contacted patient to schedule HCC care gaps and health maintenance. 1st attempt: Left message with my direct number 2nd attempt: My Chart message sent Topic Due (Y or N) Comments Annual Wellness Exam Yes PCP Follow up Yes Colorectal Cancer Screening Yes A1C No HTN/Controlling BP No HCC Yes Updated appointment notes No Reason for Outreach Care Gap/HCC or Scheduling Wellness Visits Care Gaps due: Medicare Annual Wellness Visit Follow-up Appointment Colorectal Cancer Screening Patient Contacted: Unable or unnecessary to reach patient: Left message [employer] message sent HCC related Navigation Signature: Destiny Madera MA July 08, 2024 9:46 AM [facility] 07-08-2024 History of Presen t illness Narrative POPULATION HEALTH NAVIGATION OUTREACH Action/FYI Contacted patient to schedule HCC care gaps and health maintenance. 1st attempt: Left message with my direct number 2nd attempt: My Chart message sent Topic Due (Y or N) Comments Annual Wellness Exam Yes PCP Follow up Yes Colorectal Cancer Screening Yes A1C No HTN/Controlling BP No HCC Yes Updated appointment notes No Reason for Outreach Care Gap/HCC or Scheduling Wellness Visits Care Gaps due: Medicare Annual Wellness Visit Follow-up Appointment Colorectal Cancer Screening Patient Contacted: Unable or unnecessary to reach patient: Left message sones message sent HCC related Navigation Signature: Destiny Madera MA July 08, 2024 9:46 AM documented in this encounter [facility] 07-08-2024 Note Patient Outreach (NEAL ANDRADE) SHARITA TRAORE ([id number]) 1950 F Date Time Provider Department 07/08/24 DESTINY MADERA During your visit today, we recorded the following information about you: Destiny Madera MA 07/08/2024 9:46 AM Signed POPULATION HEALTH NAVIGATION OUTREACH Action/FYI Contacted patient to schedule HCC care gaps and health maintenance. 1st attempt: Left message with my direct number 2nd attempt: My Chart message sent Topic Due (Y or N) Comments Annual Wellness Exam Yes PCP Follow up Yes Colorectal Cancer Screening Yes A1C No HTN/Controlling BP No HCC Yes Updated appointment notes No Reason for Outreach Care Gap/HCC or Scheduling Wellness Visits Care Gaps due: Medicare Annual Wellness Visit Follow-up Appointment Colorectal Cancer Screening Patient Contacted: Unable or unnecessary to reach patient: Left message MyChart message sent HCC related Navigation Signature: Destiny Madera MA July 08, 2024 9:46 AM Allergies As of Date: 07/08/2024 Noted Allergy Reaction LIPITOR (ATORVASTATIN) 09/20/2022 6 - Diarrhea METRONIDAZOLE 01/26/2017 15 - Contraindication-Medical Arana* Comments: Neuropathy Date Reviewed: 03/12/2024 Reviewed by: Diego Alejandra LPN - Fully Assessed Reason for Visit: Population Health Navigation Outreach [3910] Cmt: Guillermo/Work/ACO Prescriptions as of 07/08/2024 - rosuvastatin (CRESTOR) 20 mg tablet Take 1 tablet by mouth daily at bedtime. - calcium carbonate (CALCIUM 600 ORAL) Take 1 tablet by mouth once daily. - cholecalciferol (VITAMIN D-3) 5,000 unit tab Take 5,000 Units by mouth once daily. - miconazole (ZEASORB AF) 2 % powder Apply 1 application to affected area as needed. 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] 12/01/2016 Dyslipidemia [E78.5] 12/28/2016 Ulcerative chronic pancolitis (HCC) [K51.00] 01/02/2017 01/26/2017 Severe protein-calorie malnutrition (HCC) [E43] 01/03/2017 09/12/[address] (HCC) [Z93.2] 01/04/2017 Post-operative pain [G89.18] 01/04/2017 Ulcerative (chronic) pancolitis with other comp*05/04/2017 Tobacco use disorder [F17.200] 09/08/2022 Osteoporosis [M81.0] 09/08/2022 Moderate COPD (chronic obstructive pulmonary di*09/12/2022 S/P colectomy [Z90.49] 09/11/2023 Encounter Status:Closed by DESTINY MADERA on 07/08/24 [facility] 03-12-2024 Note HNO ID: [id number] Author: MCKENZIE SANTIAGO APRN.CHANNEL MACHINE OPERATOR Service: ? Author Type: Nurse Practitioner Type: Progress Notes Filed: 03/12/2024 11:27 Note Text: 03/12/2024 Patient presents with: F/U 6 months SUBJECTIVE: This is a 73 year old that is here today for Above Complaints.. Smokes a half a pack a day. Follows with Dr. Da Silva for hx of lung nodules and COPD. Had follow-up appointment with CT of lungs in October with no new findings. Denies SOB, dyspnea, wheezing or coughing. HYPERLIPIDEMIA: Patient is taking medications: Yes. Patient is watching diet: Yes. Patient denies myalgias: Yes. Patient denies gi upset: Yes S/P colectomy. Followed up with GI on 10/20/2023. Recommended follow-up as needed. No issues at this time Osteoporosis: took Fosamax for awhile but doesn't want to take it. 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 Da Silva Osteoporosis S/P colectomy Tobacco use disorder Trigger finger of right hand ALLERGIES Lipitor [Atorvastatin] and Metronidazole MEDICATIONS Current Outpatient Medications Medication Sig rosuvastatin (CRESTOR) 20 mg tablet Take 1 tablet by mouth daily at bedtime. alendronate (FOSAMAX) 70 mg tablet Take 1 tablet by mouth one time a week. Take with a full glass of water, on an empty stomach; do NOT lie down for 30minutes. Zinc Acetate, Oral, 50 mg (zinc) cap Take 1 capsule by mouth every other day. (Patient not taking: Reported on 09/11/2023) calcium carbonate (CALCIUM 600 ORAL) Take 1 tablet by mouth once daily. cholecalciferol (VITAMIN D-3) 5,000 unit tab Take 5,000 Units by mouth once daily. miconazole (ZEASORB AF) 2 % powder Apply 1 application to affected area as needed. No current facility-administered medications for this visit. Medications and allergies reviewed by this provider. SOCIAL HISTORY Social History Tobacco Use Smoking status: Every Day Current packs/day: 0.50 Average packs/day: 0.5 packs/day for 60.0 years (30.0 ttl pk-yrs) Types: Cigarettes Smokeless tobacco: Never Substance Use Topics Alcohol use: No Drug use: No REVIEW OF SYSTEMS All other reviewed and negative other than HPI. OBJECTIVE: BP 138/86 Pulse 61 Resp 16 Wt 55 kg (121 lb 4.1 oz) SpO2 98% BMI 19.28 kg/m? . Vital signs reviewed by this provider. APPEARANCE Well appearing, alert, in no acute distress, well-hydrated, well nourished. EYES PERRLA, conjunctiva and sclera normal. HEART RRR with normal S1 and S2, no murmurs, no gallops, no JVD appreciated LUNG clear to auscultation. No wheezes, rhonchi or rales EXTREMITIES Extremities normal, No deformities, No skin discoloration, No edema SKIN Skin color, texture, turgor normal, no suspicious rashes or lesions to exposed skin Latest Ref Rng 09/11/2023 WBC 3.70 - 11.00 k/uL 6.06 RBC 3.90 - 5.20 m/uL 4.96 Hemoglobin 11.5 - 15.5 g/dL 14.6 Hematocrit 36.0 - 46.0 % 45.2 MCV 80.0 - 100.0 fL 91.1 MCH 26.0 - 34.0 pg 29.4 MCHC 30.5 - 36.0 g/dL 32.3 RDW-CV 11.5 - 15.0 % 13.9 Platelet Count 150 - 400 k/uL 186 MPV 9.0 - 12.7 fL 10.9 Neut% % 54.9 Abs Neut (ANC) 1.45 - 7.50 k/uL 3.33 Lymph% % 38.3 Abs Lymph 1.00 - 4.00 k/uL 2.32 Martin% % 4.8 Abs Martin <0.87 k/uL 0.29 Eosin% % 0.8 Abs Eosin <0.46 k/uL 0.05 Baso% % 1.0 Abs Baso <0.11 k/uL 0.06 Immature Gran % % 0.2 IMMATURE GRANS (ABS) <0.10 k/uL <0.03 NRBC /100 WBC 0.0 Absolute nRBC <0.01 k/uL <0.01 DTYPE Auto Protein, Total 6.3 - 8.0 g/dL 7.2 Albumin 3.9 - 4.9 g/dL 4.3 Calcium 8.5 - 10.2 mg/dL 9.9 Bilirubin, Total 0.2 - 1.3 mg/dL 0.7 Alkaline Phosphatase 34 - 123 U/L 63 AST 13 - 35 U/L 23 ALT 7 - 38 U/L 10 Glucose 74 - 99 mg/dL 105 (H) BUN 7 - 21 mg/dL 11 Creatinine 0.58 - 0.96 mg/dL 0.90 Sodium 136 - 144 mmol/L 138 Potassium 3.7 - 5.1 mmol/L 4.5 Chloride 98 - 107 mmol/L 104 CO2 22 - 30 mmol/L 24 Anion Gap 8 - 15 mmol/L 10 eGFR >=60 mL/min/1.73m? 67 Total Cholesterol, Nonfasting <200 mg/dL 163 Triglycerides, Nonfasting <150 mg/dL 115 HDL Cholesterol, Nonfasting >39 mg/dL 68 LDL Cholesterol, Nonfasting <100 mg/dL 72 Non HDL Cholesterol, Nonfasting <130 mg/dL 95 VLDL Cholesterol, Nonfasting <30 mg/dL 23 Total Chol/HDL Ratio, Nonfasting <5.10 mg/dL 2.40 LDL/HDL Ratio, Nonfasting <2.54 mg/dL 1.06 Legend: (H) High ASSESSMENT/PLAN: 1. Hyperlipidemia, mixed - ICD9: 272.2, ICD10: E78.2 (primary diagnosis) - Controlled - Continue current medications - Counseled on healthy diet and regular exercise - Follow up in 6 months, sooner should any other issues arise. 2. Tobacco use disorder - ICD9: 305.1, ICD10: F17.200 - Cessation encouraged. - Physiologic and physical aspects of tobacco addiction as well as strategies for quitting were discussed. - Counseling was given focusing on the harmful effects of this addictio (more content not included)... [facility] 03-12-2024 History of Presen t illness Narrative 03/12/2024 Patient presents with: F/U 6 months SUBJECTIVE: This is a 73 year old that is here today for Above Complaints.. Smokes a half a pack a day. Follows with Dr. Da Silva for hx of lung nodules and COPD. Had follow-up appointment with CT of lungs in October with no new findings. Denies SOB, dyspnea, wheezing or coughing. HYPERLIPIDEMIA: Patient is taking medications: Yes. Patient is watching diet: Yes. Patient denies myalgias: Yes. Patient denies gi upset: Yes S/P colectomy. Followed up with GI on 10/20/2023. Recommended follow-up as needed. No issues at this time Osteoporosis: took Fosamax for awhile but doesn't want to take it. 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 Da Silva Osteoporosis S/P colectomy Tobacco use disorder Trigger finger of right hand ALLERGIES Lipitor [Atorvastatin] and Metronidazole MEDICATIONS Current Outpatient Medications Medication Sig rosuvastatin (CRESTOR) 20 mg tablet Take 1 tablet by mouth daily at bedtime. alendronate (FOSAMAX) 70 mg tablet Take 1 tablet by mouth one time a week. Take with a full glass of water, on an empty stomach; do NOT lie down for 30minutes. Zinc Acetate, Oral, 50 mg (zinc) cap Take 1 capsule by mouth every other day. (Patient not taking: Reported on 09/11/2023) calcium carbonate (CALCIUM 600 ORAL) Take 1 tablet by mouth once daily. cholecalciferol (VITAMIN D-3) 5,000 unit tab Take 5,000 Units by mouth once daily. miconazole (ZEASORB AF) 2 % powder Apply 1 application to affected area as needed. No current facility-administered medications for this visit. Medications and allergies reviewed by this provider. SOCIAL HISTORY Social History Tobacco Use Smoking status: Every Day Current packs/day: 0.50 Average packs/day: 0.5 packs/day for 60.0 years (30.0 ttl pk-yrs) Types: Cigarettes Smokeless tobacco: Never Substance Use Topics Alcohol use: No Drug use: No REVIEW OF SYSTEMS All other reviewed and negative other than HPI. OBJECTIVE: BP 138/86 Pulse 61 Resp 16 Wt 55 kg (121 lb 4.1 oz) SpO2 98% BMI 19.28 kg/m . Vital signs reviewed by this provider. APPEARANCE Well appearing, alert, in no acute distress, well-hydrated, well nourished. EYES PERRLA, conjunctiva and sclera normal. HEART RRR with normal S1 and S2, no murmurs, no gallops, no JVD appreciated LUNG clear to auscultation. No wheezes, rhonchi or rales EXTREMITIES Extremities normal, No deformities, No skin discoloration, No edema SKIN Skin color, texture, turgor normal, no suspicious rashes or lesions to exposed skin Latest Ref [facility] 09/11/2023 WBC 3.70 - 11.00 k/uL 6.06 RBC 3.90 - 5.20 m/uL 4.96 Hemoglobin 11.5 - 15.5 g/dL 14.6 Hematocrit 36.0 - 46.0 % 45.2 MCV 80.0 - 100.0 fL 91.1 MCH 26.0 - 34.0 pg 29.4 MCHC 30.5 - 36.0 g/dL 32.3 RDW-CV 11.5 - 15.0 % 13.9 Platelet Count 150 - 400 k/uL 186 MPV 9.0 - 12.7 fL 10.9 Neut% % 54.9 Abs Neut (ANC) 1.45 - 7.50 k/uL 3.33 Lymph% % 38.3 Abs Lymph 1.00 - 4.00 k/uL 2.32 Martin% % 4.8 Abs Martin <0.87 k/uL 0.29 Eosin% % 0.8 Abs Eosin <0.46 k/uL 0.05 Baso% % 1.0 Abs Baso <0.11 k/uL 0.06 Immature Gran % % 0.2 IMMATURE GRANS (ABS) <0.10 k/uL <0.03 NRBC /100 WBC 0.0 Absolute nRBC <0.01 k/uL <0.01 DTYPE Auto Protein, Total 6.3 - 8.0 g/dL 7.2 Albumin 3.9 - 4.9 g/dL 4.3 Calcium 8.5 - 10.2 mg/dL 9.9 Bilirubin, Total 0.2 - 1.3 mg/dL 0.7 Alkaline Phosphatase 34 - 123 U/L 63 AST 13 - 35 U/L 23 ALT 7 - 38 U/L 10 Glucose 74 - 99 mg/dL 105 (H) BUN 7 - 21 mg/dL 11 Creatinine 0.58 - 0.96 mg/dL 0.90 Sodium 136 - 144 mmol/L 138 Potassium 3.7 - 5.1 mmol/L 4.5 Chloride 98 - 107 mmol/L 104 CO2 22 - 30 mmol/L 24 Anion Gap 8 - 15 mmol/L 10 eGFR >=60 mL/min/1.73m 67 Total Cholesterol, Nonfasting <200 mg/dL 163 Triglycerides, Nonfasting <150 mg/dL 115 HDL Cholesterol, Nonfasting >39 mg/dL 68 LDL Cholesterol, Nonfasting <100 mg/dL 72 Non HDL Cholesterol, Nonfasting <130 mg/dL 95 VLDL Cholesterol, Nonfasting <30 mg/dL 23 Total Chol/HDL Ratio, Nonfasting <5.10 mg/dL 2.40 LDL/HDL Ratio, Nonfasting <2.54 mg/dL 1.06 Legend: (H) High ASSESSMENT/PLAN: 1. Hyperlipidemia, mixed - ICD9: 272.2, ICD10: E78.2 (primary diagnosis) - Controlled - Continue current medications - Counseled on healthy diet and regular exercise - Follow up in 6 months, sooner should any other issues arise. 2. Tobacco use disorder - ICD9: 305.1, ICD10: F17.200 - Cessation encouraged. - Physiologic and physical aspects of tobacco addiction as well as strategies for quitting were discussed. - Counseling was given focusing on the harmful effects of this addiction especially given the patient's medical condition(s) which will be worsened because of the chemicals in tobacco. 3. Ileostomy in place (HCC) - ICD9: V44.2, ICD10: Z93.2 - stable 4. S/P colectomy - ICD9: V45.89, ICD10: Z90.49 - stable 6. Moderate COPD (chronic obstructive pulmonary disease) (HCC) - ICD9: 496, ICD10: J44.9 - stable - follow up with pulmonology as recommended 7. Age-related osteoporosis without current pathological fracture - ICD9: 733.01, ICD10: M81.0 - Reviewed the need for Calcium and Vitamin D supplements and weight bearing exercise as tolerated - discussed risks and benefits or treatment with Fosamax- patient does not want to take Mckenzie Santiago APRN.KARLOS Prescription instructions reviewed with patient as applicable. Patient advised if symptoms do not improve or if symptoms worsen sooner, to contact their primary care physician. Potential red flag symptoms discussed with the patient. Reviewed appropriate action plan to take if red flag symptoms occur. Patient agreeable to treatment plan. Medical Decision Making: Problems: Moderate: 2+ stable chronic illnesses Risk: Moderate: Moderate risk from testing/treatment Medical Decision Making Level: 4 - Moderate documented in this encounter [facility] 03-05-2024 Telephone encounter Note Prescription Refill Information The patient has been identified by name and date of : Yes Caregiver verified no other encounters exist for this prescription request: Yes Caregiver confirmed with patient/requestor that no other refills are due, in the near future, with this provider at this time: Yes The last office visit in the department: 09-11-23 Does the patient have a future office visit with this provider/department: Yes Requested Prescriptions Pending Prescriptions Disp Refills rosuvastatin (CRESTOR) 20 mg tablet 90 tablet 3 Sig: Take 1 tablet by mouth daily at bedtime. Betsy Cunningham March 05, 2024 1:09 PM [facility] 03-05-2024 Miscellaneous Notes Prescription Refill Information The patient has been identified by name and date of : Yes Caregiver verified no other encounters exist for this prescription request: Yes Caregiver confirmed with patient/requestor that no other refills are due, in the near future, with this provider at this time: Yes The last office visit in the department: 09-11-23 Does the patient have a future office visit with this provider/department: Yes Requested Prescriptions Pending Prescriptions Disp Refills rosuvastatin (CRESTOR) 20 mg tablet 90 tablet 3 Sig: Take 1 tablet by mouth daily at bedtime. Betsy Cunningham March 05, 2024 1:09 PM documented in this encounter [facility] 10-20-2023 Note HNO ID: [id number] Author: KAIT WILSON APRN.CHANNEL MACHINE OPERATOR Service: ? Author Type: Nurse Practitioner Type: Progress Notes Filed: 10/20/2023 12:45 Note Text: CHIEF COMPLAINT: Patient presents with: Ulcerative pancolitis: Has not been seen since 05/04/17 surgery This consult was requested by Franklyn Jett * for an opinion regarding hx of JENNIFER. My final recommendations will be communicated to the requesting health care provider by way of the shared medical record for internal providers or letter via the [employer] for external providers. HPI: Sharita Traore is a 73 year old female who presents for Ulcerative pancolitis (Has not been seen since 05/04/17 surgery). Back in 2017, was diagnosed with acute colitis (no prior issues or dx of colitis). She underwent colonoscopy in 2017 and she had multiple polyps with high grade dyplasia and colon biopsies showing focal active colitis with no features of chronic colitis. She underwent colectomy. She saw Dr. Paez 01/2017, and she felt there was no evidence if Crohn's or colitis, however if it was early colitis, she was cured d/t colectomy. Colectomy path did not show colitis. She decided against IPAA and had a completion proctectomy with Dr. Alton Garcia. She had some post-op pelvic pain after her completion proctectomy, so Dr. Garcia ordered CT to r/o parastomal hernia, with planned f/u after CT, however follow up was not needed d/t no hernia and resolution of pain. Currently, she has no issues. Empties ileostomy BID - stools are consistent. Denies any blood in the stool. Denies any diarrhea, abdominal pain. She feels well. Record Review: [facility] / Outside records reviewed. 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 Da Silva Osteoporosis S/P colectomy Tobacco use disorder Trigger finger of right hand PAST SURGICAL HISTORY Procedure Laterality Date HAND SURGERY HX 01/2022 LIGATE FALLOPIAN TUBE PAST SURGICAL HISTORY OF 2017 colonoscopy PAST SURGICAL HISTORY OF 12/2016 total colectomy PAST SURGICAL HISTORY OF 01/2022 right trigger finger release-Dr. García PAST SURGICAL HISTORY OF 03/2023 lens implants Allergies: ALLERGIES Allergen Reactions Lipitor [Atorvastat* Diarrhea Metronidazole Contraindication-Medical Surgical Neuropathy Medications: rosuvastatin (CRESTOR) 20 mg tablet Take 1 tablet by mouth daily at bedtime. calcium carbonate (CALCIUM 600 ORAL) Take 1 tablet by mouth once daily. cholecalciferol (VITAMIN D-3) 5,000 unit tab Take 5,000 Units by mouth once daily. miconazole (ZEASORB AF) 2 % powder Apply 1 application to affected area as needed. alendronate (FOSAMAX) 70 mg tablet Take 1 tablet by mouth one time a week. Take with a full glass of water, on an empty stomach; do NOT lie down for 30minutes. Zinc Acetate, Oral, 50 mg (zinc) cap Take 1 capsule by mouth every other day. (Patient not taking: Reported on 09/11/2023) FAMILY HISTORY Problem Relation Age of Onset Heart Mother heart attack COPD Father Cancer Sister 48 lung, +TOB Cancer Brother 56 throat, +TOB/[place] Cancer Maternal Grandmother 38 kidney Cancer Paternal Grandmother 71 ?? Colon Cancer Paternal Grandfather 61 Employer And Job Title: None on file Years Of Education Completed: Not specified Marital Status: Social History Tobacco Use Smoking status: Every Day Packs/day: 0.50 Years: 60.00 Additional pack years: 0.00 Total pack years: 30.00 Types: Cigarettes Smokeless tobacco: Never Substance Use Topics Alcohol use: No Drug use: No Review of Systems: Review of Systems All other systems reviewed and are negative. Are you taking any blood thinners? No Physical Examination: Pulse 66 Ht 5' 6.5" (1.69m) Wt 123 lb (55.8kg) BMI 19.56 kg/(m2). Physical Exam Vitals and nursing note reviewed. Constitutional: Appearance: Normal appearance. She is normal weight. HENT: Head: Normocephalic and atraumatic. Mouth/Throat: Mouth: Mucous membranes are moist. Eyes: General: No scleral icterus. Cardiovascular: Rate and Rhythm: Normal rate and regular rhythm. Pulmonary: Breath sounds: Normal breath sounds. Abdominal: General: Abdomen is flat. Bowel sounds are normal. Palpations: Abdomen is soft. Tenderness: There is no abdominal tenderness. There is no guarding or rebound. Comments: RLQ ostomy appliance in place. No surrounding erythema Skin: General: Skin is warm and dry. Neurological: Mental Status: She is alert and oriented to person, place, and time. Psychiatric: Mood and Affect: Mood normal. Behavior: Behavior normal. Thought Content: Thought content normal. Judgment: Judgment normal. ASSESSMENT: (Z93.2) Ileostomy in place (HCC) (primary encounter diagnosis) (Z90.49) Status post proctocolectomy 1. Ileostomy in place (HCC) - s (more content not included)... [facility] 10-20-2023 History of Presen t illness Narrative CHIEF COMPLAINT: Patient presents with: Ulcerative pancolitis: Has not been seen since 05/04/17 surgery This consult was requested by Franklyn Jett * for an opinion regarding hx of JENNIFER. My final recommendations will be communicated to the requesting health care provider by way of the shared medical record for internal providers or letter via the [employer] for external providers. HPI: Sharita Traore is a 73 year old female who presents for Ulcerative pancolitis (Has not been seen since 05/04/17 surgery). Back in 2017, was diagnosed with acute colitis (no prior issues or dx of colitis). She underwent colonoscopy in 2017 and she had multiple polyps with high grade dyplasia and colon biopsies showing focal active colitis with no features of chronic colitis. She underwent colectomy. She saw Dr. Paez 01/2017, and she felt there was no evidence if Crohn's or colitis, however if it was early colitis, she was cured d/t colectomy. Colectomy path did not show colitis. She decided against IPAA and had a completion proctectomy with Dr. Alton Garcia. She had some post-op pelvic pain after her completion proctectomy, so Dr. Garcia ordered CT to r/o parastomal hernia, with planned f/u after CT, however follow up was not needed d/t no hernia and resolution of pain. Currently, she has no issues. Empties ileostomy BID - stools are consistent. Denies any blood in the stool. Denies any diarrhea, abdominal pain. She feels well. Record Review: [facility] / Outside records reviewed. 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 Da Silva Osteoporosis S/P colectomy Tobacco use disorder Trigger finger of right hand PAST SURGICAL HISTORY Procedure Laterality Date HAND SURGERY HX 01/2022 LIGATE FALLOPIAN TUBE PAST SURGICAL HISTORY OF 2017 colonoscopy PAST SURGICAL HISTORY OF 12/2016 total colectomy PAST SURGICAL HISTORY OF 01/2022 right trigger finger release-Dr. García PAST SURGICAL HISTORY OF 03/2023 lens implants Allergies: ALLERGIES Allergen Reactions Lipitor [Atorvastat* Diarrhea Metronidazole Contraindication-Medical Surgical Neuropathy Medications: rosuvastatin (CRESTOR) 20 mg tablet Take 1 tablet by mouth daily at bedtime. calcium carbonate (CALCIUM 600 ORAL) Take 1 tablet by mouth once daily. cholecalciferol (VITAMIN D-3) 5,000 unit tab Take 5,000 Units by mouth once daily. miconazole (ZEASORB AF) 2 % powder Apply 1 application to affected area as needed. alendronate (FOSAMAX) 70 mg tablet Take 1 tablet by mouth one time a week. Take with a full glass of water, on an empty stomach; do NOT lie down for 30minutes. Zinc Acetate, Oral, 50 mg (zinc) cap Take 1 capsule by mouth every other day. (Patient not taking: Reported on 09/11/2023) FAMILY HISTORY Problem Relation Age of Onset Heart Mother heart attack COPD Father Cancer Sister 48 lung, +TOB Cancer Brother 56 throat, +TOB/[place] Cancer Maternal Grandmother 38 kidney Cancer Paternal Grandmother 71 ?? Colon Cancer Paternal Grandfather 61 Employer And Job Title: None on file Years Of Education Completed: Not specified Marital Status: Social History Tobacco Use Smoking status: Every Day Packs/day: 0.50 Years: 60.00 Additional pack years: 0.00 Total pack years: 30.00 Types: Cigarettes Smokeless tobacco: Never Substance Use Topics Alcohol use: No Drug use: No Review of Systems: Review of Systems All other systems reviewed and are negative. Are you taking any blood thinners? No Physical Examination: Pulse 66 Ht 5' 6.5" (1.69m) Wt 123 lb (55.8kg) BMI 19.56 kg/(m^2). Physical Exam Vitals and nursing note reviewed. Constitutional: Appearance: Normal appearance. She is normal weight. HENT: Head: Normocephalic and atraumatic. Mouth/Throat: Mouth: Mucous membranes are moist. Eyes: General: No scleral icterus. Cardiovascular: Rate and Rhythm: Normal rate and regular rhythm. Pulmonary: Breath sounds: Normal breath sounds. Abdominal: General: Abdomen is flat. Bowel sounds are normal. Palpations: Abdomen is soft. Tenderness: There is no abdominal tenderness. There is no guarding or rebound. Comments: RLQ ostomy appliance in place. No surrounding erythema Skin: General: Skin is warm and dry. Neurological: Mental Status: She is alert and oriented to person, place, and time. Psychiatric: Mood and Affect: Mood normal. Behavior: Behavior normal. Thought Content: Thought content normal. Judgment: Judgment normal. ASSESSMENT: (Z93.2) Ileostomy in place ([facility]) (primary encounter diagnosis) (Z90.49) Status post proctocolectomy 1. Ileostomy in place ([facility]) - s/p total proctocolectomy d/t acute colitis with HGD on biopsies. There was no evidence of chronic ulcerative colitis on colon biopsies or colectomy path. Given she has had a complete proctocolectomy and there was no evidence for Crohn's or IBD, there is no need for routine ileoscopy or follow up unless symptoms of diarrhea or bleeding occur. 2. Status post proctocolectomy - 2016 Follow up in office LAURO Wilson APRN.CNP October 20, 2023 12:36 PM documented in this encounter [facility] 10-10-2023 Telephone encounter Note Spoke with pt and information listed below given. Pt verbalizes understanding. Meagan Rivera LPN [facility] 10-10-2023 Miscellaneous Notes Spoke with pt and information listed below given. Pt verbalizes understanding. Meagan Rivera LPN Rx sent. Take as directed. Call with concerns for side effects. Spoke with pt and information listed below given. Pt verbalizes understanding. Pt is willing to start on Fosamax.. Please send to [facility]. Meagan Rivera LPN ----- Message from Franklyn Jett MD sent at 10/10/2023 2:50 PM EDT ----- DXA scan shows osteoporosis. Recommend starting patient on weekly fosamax to reduce her risk for fractures. If agreeable, will send rx to requested pharmacy. Repeat in 2 years. documented in this encounter [facility] 10-10-2023 Telephone encounter Note Rx sent. Take as directed. Call with concerns for side effects. [facility] 10-10-2023 Telephone encounter Note Spoke with pt and information listed below given. Pt verbalizes understanding. Pt is willing to start on Fosamax.. Please send to [facility]. Meagan Rivera LPN [facility] 10-10-2023 Telephone encounter Note ----- Message from Franklyn Jett MD sent at 10/10/2023 2:50 PM EDT ----- DXA scan shows osteoporosis. Recommend starting patient on weekly fosamax to reduce her risk for fractures. If agreeable, will send rx to requested pharmacy. Repeat in 2 years. [facility] 10-06-2023 History of Presen t illness Narrative Radiology Service Progress Note PATIENT NAME: Sharita Traore DATE OF SERVICE: October 06, 2023 TIME: 2:11 PM PATIENT IDENTITY VERIFICATION COMPLETED USING TWO (2) IDENTIFIERS: Name and Date of confirmed by patient verbally. FALL SCREENING: Has the patient had 2 falls in the last year or 1 fall with injury or currently using an Ambulatory Assistive Device (Walker, Cane, Wheelchair, Crutches, etc.)? No PATIENT GENDER DATA: Female. status: : No status: NO. PATIENT RELEVANT IMPLANT DATA REVIEWED: Not Applicable PATIENT PRESENTS WITH AN IMPLANTABLE OR ATTACHED STONE LAYOUT MARKER: No RADIOLOGY DEPARTMENT: Bone Density PERIPHERAL IV DATA: Not applicable SIGNED BY: RT Haroon(R) October 06, 2023 2:11 PM documented in this encounter [facility] 10-03-2023 Telephone encounter Note Phoned patient and went over results from Dr Jett with understanding. [facility] 10-03-2023 Miscellaneous Notes Phoned patient and went over results from Dr Jett with understanding. ----- Message from Franklyn Jett MD sent at 10/03/2023 8:04 AM EDT ----- Negative/normal mammogram. documented in this encounter [facility] 10-03-2023 Telephone encounter Note ----- Message from Franklny Jett MD sent at 10/03/2023 8:04 AM EDT ----- Negative/normal mammogram. [facility] 10-03-2023 Note Formatting of this n ote might be different from the original. October 03, 2023 PID: [id number] Sharita Traore [address] [facility] [address] [place] [id number] Dear Ms. Traore, We are pleased to inform you that the results of your recent breast imaging exam on 09/29/2023 are normal. Early detection of cancer is very important. We also understand recommendations regarding breast cancer screening are controversial. Please discuss with your primary care provider which strategy is best for you and whether a mammogram is right for you. Your imaging studies and report will be kept on file at [facility] as part of your permanent medical record and are available for your continuing care. Thank you for allowing us to help in meeting your health care needs. Sincerely, Dr. Cano Interpreting Radiologist [facility] (Normal over 40) [facility] 10-03-2023 Miscellaneous Notes October 03, 2023 PID: [id number] Sharita Traore [address] [place] [id number] Dear Ms. Traore, We are pleased to inform you that the results of your recent breast imaging exam on 09/29/2023 are normal. Early detection of cancer is very important. We also understand recommendations regarding breast cancer screening are controversial. Please discuss with your primary care provider which strategy is best for you and whether a mammogram is right for you. Your imaging studies and report will be kept on file at [facility] as part of your permanent medical record and are available for your continuing care. Thank you for allowing us to help in meeting your health care needs. Sincerely, Dr. Cano Interpreting Radiologist [facility] (Normal over 40) documented in this encounter [facility] 09-29-2023 History of Presen t illness Narrative Radiology Service Progress Note PATIENT NAME: Sharita Traore DATE OF SERVICE: September 29, 2023 TIME: 1:39 PM PATIENT IDENTITY VERIFICATION COMPLETED USING TWO (2) IDENTIFIERS: Name and Date of confirmed by patient verbally. FALL SCREENING: Has the patient had 2 falls in the last year or 1 fall with injury or currently using an Ambulatory Assistive Device (Walker, Cane, Wheelchair, Crutches, etc.)? No PATIENT GENDER DATA: Female. status: : No status: NO. PATIENT RELEVANT IMPLANT DATA REVIEWED: Not Applicable PATIENT PRESENTS WITH AN IMPLANTABLE OR ATTACHED STONE LAYOUT MARKER: No RADIOLOGY DEPARTMENT: Mammography PERIPHERAL IV DATA: Not applicable SIGNED BY: Chinedu Wiggins September 29, 2023 1:39 PM documented in this encounter [facility] 09-12-2023 Telephone encounter Note Cyberahart message sent to pt notifying her of results and recommendations below. Laura Moore MA [facility] 09-12-2023 Miscellaneous Notes Mychart message sent to pt notifying her of results and recommendations below. Laura Moore MA ----- Message from Franklyn Jett MD sent at 09/12/2023 8:51 AM EDT ----- Unremarkable labs. No change in regimen. documented in this encounter [facility] 09-12-2023 Telephone encounter Note ----- Message from Franklyn Jett MD sent at 09/12/2023 8:51 AM EDT ----- Unremarkable labs. No change in regimen. [facility] 09-11-2023 Instructions Franklyn Jett MD - 09/11/2023 10:06 AM EDT BONE MINERAL DENSITY PATIENT INSTRUCTIONS ========= Bone mineral density testing measures the amount of calcium in certain parts of your bones. This information determines how strong your bones are. The test is used to detect osteoporosis, a disease in which the bone's mineral content and density are low, increasing a person's risk of fractures. The lumbar spine (lower back) and the hip are the skeletal sites usually examined. For the test, remember that: 1. You cannot take this test if you are . 2. Eat a normal diet on the day of the test. 3. Take your medications as you normally would. 4. DO NOT take calcium supplements (such as Tums) for 24 hours before the test. 5. On the day of the test, leave valuables (jewelry or credit cards) at home. 6. The test should be performed prior to oral, rectal or IV contrast studies, or at least 7 days after any of these studies. For the test, you may be asked to wear a hospital gown. You will lie on your back, on a padded table, in a comfortable position. Generally, you can resume your usual activities immediately. documented in this encounter [facility] 09-11-2023 History of Presen t illness Narrative Chief Complaint Patient presents with: Follow Up: 6 month HPI Sharita Traore is a 73 year old female who presents here today for Above Complaints. Patient following up with Dr. Da Silva's office for history of COPD and lung nodules on a yearly basis. Next OV in October. Not on inhaler regimen at this time and is refusing albuterol today. No known triggers. Denies recent cough, wheezing, SOB. Still smoking 1/2 pack per day for more than 60 years. Not ready to quit yet. still smokes and he wont quit. Compliant with Crestor for hyperlipidemia. No side effects. Due for repeat labs. Overdue for DXA scan with history of osteoporosis. States that she has been on Boniva in the past and was not improving bone density, so her previous PCP stopped it. Patient states that has history of colitis s/p [place] co[place] [address] Garcia. No longer following up with their office. Looks like they wanted her to follow up in 2018, but was not scheduled. Agreeable for referral back to GI for monitoring and cancer screening discussion. Past medical history, appointments, medications, allergies reviewed. Previous Medical History PAST MEDICAL HISTORY Diagnosis Date Colitis Dupuytren's contracture of left hand High cholesterol Lung nodule Dr. Da Silva Osteoporosis S/P colectomy Tobacco use disorder Trigger finger of right hand Previous Surgical History PAST SURGICAL HISTORY Procedure Laterality Date LIGATE FALLOPIAN TUBE PAST SURGICAL HISTORY OF 2016 colonoscopy PAST SURGICAL HISTORY OF 12/2016 total colectomy PAST SURGICAL HISTORY OF 01/2022 right trigger finger release-Dr. García Family History FAMILY HISTORY Problem Relation Age of Onset Heart Mother heart attack COPD Father Cancer Sister 48 lung, +TOB Cancer Brother 56 throat, +TOB/[place] Cancer Maternal Grandmother 38 kidney Cancer Paternal Grandmother 71 ?? Colon Cancer Paternal Grandfather 61 Patient Allergies ALLERGIES Allergen Reactions Lipitor [Atorvastat* Diarrhea Metronidazole Contraindication-Medical Surgical Neuropathy Current Medications Current Outpatient Medications on File Prior to Visit Medication Sig rosuvastatin (CRESTOR) 20 mg tablet Take 1 tablet by mouth daily at bedtime. Zinc Acetate, Oral, 50 mg (zinc) cap Take 1 capsule by mouth every other day. (Patient not taking: Reported on 09/11/2023) calcium carbonate (CALCIUM 600 ORAL) Take 1 tablet by mouth once daily. (Patient not taking: Reported on 09/11/2023) cholecalciferol (VITAMIN D-3) 5,000 unit tab Take 5,000 Units by mouth once daily. (Patient not taking: Reported on 09/11/2023) miconazole (ZEASORB AF) 2 % powder Apply 1 application to affected area as needed. No current facility-administered medications on file prior to visit. Social History Social History Tobacco Use Smoking status: Every Day Packs/day: 0.50 Years: 60.00 Additional pack years: 0.00 Total pack years: 30.00 Types: Cigarettes Smokeless tobacco: Never Substance Use Topics Alcohol use: No Drug use: No Review of Symptoms REVIEW OF SYSTEMS GENERAL: No weight loss, malaise or fevers RESPIRATORY: Negative for cough, hemoptysis, wheezing, COPD, dyspnea or shortness of breath CARDIOVASCULAR: Negative for chest pain, leg swelling, hypertension, CHF or palpitations GI: No nausea, vomiting, or diarrhea SKIN: raised skin colored lesion on her nose which is recurrent from benign biopsy a few months ago with dermatology. EXAM: BP 132/72 Pulse 71 Resp 16 Wt 56.6 kg (124 lb 12.8 oz) SpO2 98% BMI 20.14 kg/m General Appearance: Well appearing, alert, in no acute distress, well-hydrated, well nourished.. Skin: <0.5 cm skin colored nodule on tip of her nose without crusting or bleeding. Lungs: Lungs clear to auscultation. No wheezing, rhonchi, rales.. Heart: RRR without murmur, gallop, or rubs. No ectopy. Abdomen: Normal abdominal exam, Abdomen soft, non-tender. Bowel sounds normal. No masses, organomegaly. Extremities: No deformities, edema, skin discoloration, clubbing or cyanosis. Good capillary refill. . Health Maintenance List Spirometry Never done Hepatitis C Screening Never done DTaP,Tdap,Td Vaccine(1 - Tdap) Never done Alpha-1 Antitrypsin Deficiency Screening Never done Colorectal Cancer Screening Never done Lung Cancer Screening Never done RSV Vaccine(1 - 1-dose 60+ series) Never done Bone Density Screening Never done Covid-19 Vaccine( - 2022- season) due on 11/25/2022 Advance Directive Discussion Never done Behavioral Health Screening Never done Annual PCP Team Chronic Disease Visit due on 03/10/2024 Diabetes Screening due on 03/15/2026 Lipid Screening due on 03/15/2028 Influenza Vaccine Completed Shingrix Vaccine Completed Pneumococcal Vaccine: 65+ Completed Mammogram Screening Discontinued Data reviewed Latest Ref Rng 09/08/2022 03/15/2023 WBC 3.70 - 11.00 k/uL 6.36 RBC 3.90 - 5.20 m/uL 5.11 Hemoglobin 11.5 - 15.5 g/dL 15.1 Hematocrit 36.0 - 46.0 % 46.3 (H) MCV 80.0 - 100.0 fL 90.6 MCH 26.0 - 34.0 pg 29.5 MCHC 30.5 - 36.0 g/dL 32.6 RDW-CV 11.5 - 15.0 % 14.0 Platelet Count 150 - 400 k/uL 212 MPV 9.0 - 12.7 fL 10.9 Neut% % 51.9 Abs Neut (ANC) 1.45 - 7.50 k/uL 3.30 Lymph% % 41.8 Abs Lymph 1.00 - 4.00 k/uL 2.66 Martin% % 4.2 Abs Martin <0.87 k/uL 0.27 Eosin% % 0.8 Abs Eosin <0.46 k/uL 0.05 Baso% % 1.1 Abs Baso <0.11 k/uL 0.07 Immature Gran % % 0.2 IMMATURE GRANS (ABS) <0.10 k/uL <0.03 NRBC /100 WBC 0.0 Absolute nRBC <0.01 k/uL <0.01 DTYPE Auto Protein, Total 6.3 - 8.0 g/dL 7.3 7.2 Albumin 3.9 - 4.9 g/dL 4.3 4.3 Calcium 8.5 - 10.2 mg/dL 9.9 10.0 Bilirubin, Total 0.2 - 1.3 mg/dL 0.5 1.0 Alkaline Phosphatase 34 - 123 U/L 57 60 AST 13 - 35 U/L 16 13 ALT 7 - 38 U/L 11 8 Glucose 74 - 99 mg/dL 87 92 BUN 7 - 21 mg/dL 9 9 Creatinine 0.58 - 0.96 mg/dL 0.97 (H) 0.83 Sodium 136 - 144 mmol/L 141 139 Potassium 3.7 - 5.1 mmol/L 4.4 4.5 Chloride 97 - 105 mmol/L 106 (H) 103 CO2 22 - 30 mmol/L 22 27 Anion Gap 9 - 18 mmol/L 13 9 eGFR >=60 mL/min/1.73m 61 74 Cholesterol, Total <200 mg/dL 165 Triglyceride <150 mg/dL 87 HDL Cholesterol >39 mg/dL 71 Non HDL Cholesterol <130 mg/dL 94 Fasting Time hrs 12 VLDL Cholesterol <30 mg/dL 17 TC:HDL Ratio <5.10 2.32 LDL Cholesterol <100 mg/dL 77 LDL:HDL Ratio <2.54 1.08 Total Cholesterol, Nonfasting <200 mg/dL 204 (H) Triglycerides, Nonfasting <150 mg/dL 134 HDL Cholesterol, Nonfasting >39 mg/dL 65 LDL Cholesterol, Nonfasting <100 mg/dL 112 (H) Non HDL Cholesterol, Nonfasting <130 mg/dL 139 (H) VLDL Cholesterol, Nonfasting <30 mg/dL 27 Total Chol/HDL Ratio, Nonfasting <5.10 mg/dL 3.14 LDL/HDL Ratio, Nonfasting <2.54 mg/dL 1.72 Legend: (H) High ASSESSMENT/PLAN: 1. Moderate COPD (chronic obstructive pulmonary disease) (HCC) - ICD9: 496, ICD10: J44.9 (primary diagnosis) Controlled on current regimen. Refusing albuterol inhaler for PRN use. F/u with pulmonology as scheduled. 2. Tobacco use disorder - ICD9: 305.1, ICD10: F17.200 - Cessation encouraged. - Physiologic and physical aspects of tobacco addiction as well as strategies for quitting were discussed. - Counseling was given focusing on the harmful effects of this addiction especially given the patient's medical condition(s) which will be worsened because of the chemicals in tobacco. 3. Dyslipidemia - ICD9: 272.4, ICD10: E78.5 - Control undetermined, due for labs - Continue current medications - Counseled on healthy diet and regular exercise - COMPLETE BLOOD COUNT AND DIFFERENTIAL - COMPREHENSIVE METABOLIC PANEL - LIPID PANEL, NONFASTING 4. Ulcerative chronic pancolitis without complications ([facility]) - ICD9: 556.6, ICD10: K51.00 S/p colectomy and ileostomy. Asymptomatic. F/u with GI. - CONSULT TO GASTROENTEROLOGY 5. Ileostomy in place ([facility]) - ICD9: V44.2, ICD10: Z93.2 - CONSULT TO GASTROENTEROLOGY 6. Asymptomatic postmenopausal status - ICD9: V49.81, ICD10: Z78.0 Due for DXA. Discussed reason behind treating with bisphosphonates to lower risk of fracture and improving bone density. - DXA-AXIAL SKELETON - BD DXA TRABECULAR BONE SCORE (TBS) 7. S/P colectomy - ICD9: V45.89, ICD10: Z90.49 - CONSULT TO GASTROENTEROLOGY 8. Lesion of skin of nose - ICD9: 709.9, ICD10: L98.9 Appears to be scarring. Patient has f/u scheduled with dermatology. Advised to keep appointment. 9. Age-related osteoporosis without current pathological fracture - ICD9: 733.01, ICD10: M81.0 - DXA-AXIAL SKELETON - BD DXA TRABECULAR BONE SCORE (TBS) 10. Screening mammogram for breast cancer - ICD9: V76.12, ICD10: Z12.31 - Set up for mammogram, yearly mammogram recommended - [facility] SCREENING Franklyn Jett MD documented in this encounter [facility] 03-16-2023 Miscellaneous Notes TC to patient who verbalized understanding of medication sent to pharmacy. [facility] Rx sent Pt returned call and given provider's message below with verbalized understanding. Patient asking for refill on rosuvastatin. Has 4 pills left. Pended. Last ov: 03-10-23 Next ov: 09-11-23 TC to patient with no answer. Left VM to return call to office. [facility] Stokes ----- Message from Mckenzie Santiago APRN.CHANNEL MACHINE OPERATOR sent at 03/15/2023 6:42 PM EST ----- Blood work normal. Continue current medications, diet and exercise. Mckenzie Santiago APRN.CHANNEL MACHINE OPERATOR documented in this encounter [facility] 03-10-2023 Instructions Mckenzie Santiago APRN.KARLOS - 03/10/2023 1:02 PM EST If left arm continue to cause you pain follow-up in office You would benefit from general conditioning exercise programs such as those offered by recreation centers or the [facility]. WHAT YOU CAN DO TO PREVENT FALLS Many falls can be prevented. By making some changes, you can lower your chances of falling. Four things YOU can do to prevent falls for you* and your caregiver 1. Begin a regular exercise program Exercise is one of the most important ways to lower your chances of falling. It makes you stronger and helps you feel better. Exercises that improve balance and coordination (like Bartolome Chi) are the most helpful. Lack of exercise leads to weakness and increases your chances of falling. Ask your doctor or health care provider about the best type of exercise program for you. 2. Have your health care provider review your medicines Have your doctor or pharmacist review all the medicines you take, even [id number] medicines. As you get older, the way medicines work in your body can change. Some medicines, or combinations of medicines, can make you sleepy or dizzy and can cause you to fall. 3. Have your vision checked Have your eyes checked by an eye doctor at least once a year. You may be wearing the wrong glasses or have a condition like glaucoma or cataracts that limits your vision. Poor vision can increase your chances of falling. 4. Make your home safer About half of all falls happen at home. To make your home safer: Remove things you can trip over (like papers, books, clothes, and shoes) from stairs and places where you walk. Remove small throw rugs or use double-sided tape to keep the rugs from slipping. Keep items you use often in cabinets you can reach easily without using a step stool. Have grab bars put in next to your toilet and in the tub or shower. Use non-slip mats in the bathtub and on shower floors. Improve the lighting in your home. As you get older, you need brighter lights to see well. Hang light-weight curtains or shades to reduce glare. Have handrails and lights put in on all staircases. Wear shoes both inside and outside the house. Avoid going barefoot or wearing slippers. For more information, contact: Centers for Disease Control and Prevention www.cdc.gov/injury * This information may not apply if you have certain medical conditions. documented in this encounter [facility] 03-10-2023 History of Presen t illness Narrative 03/10/2023 Patient presents with: F/U 6 months: Patient fell this Monday. Tripped over something in a parking lot. Fell to concrete and hit knees and face. SUBJECTIVE: This is a 72 year old that is here today for Above Complaints. Smokes a half a pack a day. Follows with Dr. Da Silva for hx of lung nodules and COPD. Next appointment isn't until October or November Fell Monday in a parking lot. Tripped over concreted parking curb. Glasses hit into her face. She has bruising to face bilateral knee and has left are pain. She reports her cataracts are pretty bad and she is to have surgery. She days other than her left arm she is not hurting. Left upper arm aching. Aggravated by movement. Not using anything for pain. Denies visual changes, headaches, lightheadedness, dizziness, nausea or vomiting HYPERLIPIDEMIA: Patient is taking medications: Yes. Patient is watching diet: Yes. Patient denies myalgias: Yes. Patient denies gi upset: Yes S/P colectomy. Does not follow-up with GI specialist. No issues with ileostomy PAST MEDICAL HISTORY Diagnosis Date Colitis Dupuytren's contracture of left hand High cholesterol Lung nodule Dr. Da Silva Osteoporosis S/P colectomy Tobacco use disorder Trigger finger of right hand ALLERGIES Lipitor [Atorvastatin] and Metronidazole MEDICATIONS Current Outpatient Medications Medication Sig rosuvastatin (CRESTOR) 20 mg tablet Take 1 tablet by mouth daily at bedtime. Zinc Acetate, Oral, 50 mg (zinc) cap Take 1 capsule by mouth every other day. calcium carbonate (CALCIUM 600 ORAL) Take 1 tablet by mouth once daily. cholecalciferol (VITAMIN D-3) 5,000 unit tab Take 5,000 Units by mouth once daily. miconazole (ZEASORB AF) 2 % powder Apply 1 application to affected area as needed. No current facility-administered medications for this visit. Medications and allergies reviewed by this provider. SOCIAL HISTORY Social History Tobacco Use Smoking status: Every Day Packs/day: 0.50 Years: 60.00 Additional pack years: 0.00 Total pack years: 30.00 Types: Cigarettes Smokeless tobacco: Never Substance Use Topics Alcohol use: No Drug use: No REVIEW OF SYSTEMS All other reviewed and negative other than HPI. OBJECTIVE: BP 130/82 Pulse 81 Resp 16 Wt 57.6 kg (127 lb) SpO2 98% BMI 20.50 kg/m . Vital signs reviewed by this provider. APPEARANCE Well appearing, alert, in no acute distress, well-hydrated, well nourished. EYES conjunctiva and sclera normal. HEART RRR with normal S1 and S2, no murmurs, no gallops, no JVD appreciated LUNG clear to auscultation. No wheezes, rhonchi or rales Bruising under right eye and to chin. No obvious deformity. Mild TTP. Bilateral knee with faint bruising and a few scrapes. Mild TTP. Knees with FROM without difficulty LEFT SHOULDER: No obvious deformity, swelling or ecchymosis. TTP left upper arm. Discomfort with adduction and internal rotation and adduction and external rotation. Positive NEER. Negative Quispe and drop arm test Component Latest Ref Rng & Units 09/08/2022 WBC 3.70 - 11.00 k/uL 6.36 RBC 3.90 - 5.20 m/uL 5.11 Hemoglobin 11.5 - 15.5 g/dL 15.1 Hematocrit 36.0 - 46.0 % 46.3 (H) MCV 80.0 - 100.0 fL 90.6 MCH 26.0 - 34.0 pg 29.5 MCHC 30.5 - 36.0 g/dL 32.6 RDW-CV 11.5 - 15.0 % 14.0 Platelet Count 150 - 400 k/uL 212 MPV 9.0 - 12.7 fL 10.9 Neut% % 51.9 Abs Neut (ANC) 1.45 - 7.50 k/uL 3.30 Lymph% % 41.8 Abs Lymph 1.00 - 4.00 k/uL 2.66 Martin% % 4.2 Abs Martin <0.87 k/uL 0.27 Eosin% % 0.8 Abs Eosin <0.46 k/uL 0.05 Baso% % 1.1 Abs Baso <0.11 k/uL 0.07 Immature Gran % % 0.2 IMMATURE GRANS (ABS) <0.10 k/uL <0.03 NRBC /100 WBC 0.0 Absolute nRBC <0.01 k/uL <0.01 DTYPE Auto Protein, Total 6.3 - 8.0 g/dL 7.3 Albumin 3.9 - 4.9 g/dL 4.3 Calcium 8.5 - 10.2 mg/dL 9.9 Bilirubin, Total 0.2 - 1.3 mg/dL 0.5 Alkaline Phosphatase 34 - 123 U/L 57 AST 13 - 35 U/L 16 ALT 7 - 38 U/L 11 Glucose 74 - 99 mg/dL 87 BUN 7 - 21 mg/dL 9 Creatinine 0.58 - 0.96 mg/dL 0.97 (H) Sodium 136 - 144 mmol/L 141 Potassium 3.7 - 5.1 mmol/L 4.4 Chloride 97 - 105 mmol/L 106 (H) CO2 22 - 30 mmol/L 22 Anion Gap 9 - 18 mmol/L 13 eGFR >=60 mL/min/1.73m 61 Total Cholesterol, Nonfasting <200 mg/dL 204 (H) Triglycerides, Nonfasting <150 mg/dL 134 HDL Cholesterol, Nonfasting >39 mg/dL 65 LDL Cholesterol, Nonfasting <100 mg/dL 112 (H) Non HDL Cholesterol, Nonfasting <130 mg/dL 139 (H) VLDL Cholesterol, Nonfasting <30 mg/dL 27 Total Chol/HDL Ratio, Nonfasting <5.10 mg/dL 3.14 LDL/HDL Ratio, Nonfasting <2.54 mg/dL 1.72 Meningococcal B Vaccine: Consider Based On Risk(1 of 4 - Increased Risk) Never done Spirometry Never done Hepatitis A Vaccine(1 of 2 - Risk 2-dose series) Never done Alpha-1 Antitrypsin Deficiency Screening Never done Colorectal Cancer Screening Never done Hepatitis B Vaccine(1 of 3 - Risk 3-dose series) Never done RSV Vaccine(1 - 1-dose 60+ series) Never done MMR Vaccine(1 of 2 - Risk 2-dose series) Never done Advance Directive Discussion Never done Depression Assessment Never done Covid-19 Vaccine(3 - 2022-24 season) due on 11/25/2022 DTaP,Tdap,Td Vaccine(1 - Tdap) due on 09/09/2023 Bone Density Screening due on 09/09/2023 Lung Cancer Screening due on 09/09/2023 Hepatitis C Screening due on 09/09/2023 Mammogram Screening due on 09/27/2023 Annual PCP Team Chronic Disease Visit due on 03/10/2024 Diabetes Screening due on 09/08/2025 Lipid Screening due on 09/09/2027 Influenza Vaccine Completed Shingrix Vaccine Completed Pneumococcal Vaccine: 65+ Completed ASSESSMENT/PLAN: 1. Hyperlipidemia, mixed - ICD9: 272.2, ICD10: E78.2 (primary diagnosis) - Control undetermined, due for labs - Continue current medications - Counseled on healthy diet and regular exercise - Discussed need for and benefit of weight loss. BMI 20.50 kg/(m^2) - Follow up in 6 months, sooner should any other issues arise. - LIPID PANEL BASIC - COMP METABOLIC PANEL 2. Moderate COPD (chronic obstructive pulmonary disease) (HCC) - ICD9: 496, ICD10: J44.9 - stable - follow-up with pulmonology as recommended 3. Fall, initial encounter - ICD9: E888.9, ICD10: W19.XXXA - FALLS RISK EDUCATION - no red flag symptoms or exam findings - red flag symptoms discussed, verbalizes understanding 4. Tobacco use disorder - ICD9: 305.1, ICD10: F17.200 - Cessation encouraged. - Physiologic and physical aspects of tobacco addiction as well as strategies for quitting were discussed. - Counseling was given focusing on the harmful effects of this addiction especially given the patient's medical condition(s) which will be worsened because of the chemicals in tobacco. 5. Ileostomy in place (HCC) - ICD9: V44.2, ICD10: Z93.2 - stable 6. Left upper arm pain - ICD9: 729.5, ICD10: M79.622 - offered xray, patient declines - no red flag symptoms or exam findings - red flag symptoms discussed, verbalizes understanding - follow-up if fails to improve to ER with red flag symptoms Mckenzie Podlogar, FILLER IN.CHANNEL MACHINE OPERATOR Prescription instructions reviewed with patient as applicable. Patient advised if symptoms do not improve or if symptoms worsen sooner, to contact their primary care physician. Potential red flag symptoms discussed with the patient. Reviewed appropriate action plan to take if red flag symptoms occur. Patient agreeable to treatment plan. I spent a total of 30 minutes on the date of the service which included preparing to see the patient, [id number] patient care, completing clinical documentation, obtaining and/or reviewing separately obtained history, performing a medically appropriate examination, counseling and educating the patient/family/caregiver, and ordering medications, tests, or procedures. documented in this encounter [facility] 01-27-2023 History of Presen t illness Narrative POPULATION HEALTH NAVIGATION OUTREACH Action/FYI Called out to patient no answer, left vm and sent my chart message for pt. to call to schedule Ortho consult dated 01/20/2023 Patient Identified by Name and : YES, via phone Outreach Outcome/Action Unable to reach patient: Left message Did you use a PCP flex slot to schedule this appointment? No Reason for Outreach Care Gap or Scheduling/Wellness visits Payer: Payor: MEDICARE / Plan: MEDICARE A AND B / Product Type: Medicare / Care Gap Reviewed:: Ashley Reminder: Reminder note to check Health Maintenance for items below Health Maintenance items due: Meningococcal B Vaccine: Consider Based On Risk(1 of 4 - Increased Risk) Never done Spirometry Never done Hepatitis A Vaccine(1 of 2 - Risk 2-dose series) Never done Alpha-1 Antitrypsin Deficiency Screening Never done Colorectal Cancer Screening Never done Hepatitis B Vaccine(1 of 3 - Risk 3-dose series) Never done RSV Vaccine(1 - 1-dose 60+ series) Never done MMR Vaccine(1 of 2 - Risk 2-dose series) Never done Advance Directive Discussion Never done Depression Assessment Never done Shingrix Vaccine(3 of 3) due on 11/23/2022 Influenza Vaccine(1) due on 11/25/2022 Covid-19 Vaccine(2022- season) due on 11/25/2022 Navigation Signature: Jodie Champion January 27, 2023 4:14 PM documented in this encounter [facility] 01-20-2023 History of Presen t illness Narrative Radiology Service Progress Note PATIENT NAME: Sharita Traore DATE OF SERVICE: January 20, 2023 TIME: 2:21 PM PATIENT IDENTITY VERIFICATION COMPLETED USING TWO (2) IDENTIFIERS: Name and Date of confirmed by patient verbally. FALL SCREENING: Has the patient had 2 falls in the last year or 1 fall with injury or currently using an Ambulatory Assistive Device (Walker, Cane, Wheelchair, Crutches, etc.)? No PATIENT GENDER DATA: Female. status: : No status: NO. PATIENT RELEVANT IMPLANT DATA REVIEWED: Yes RADIOLOGY DEPARTMENT: General X-ray: Exam(s) Completed: Upper Extremity X-Ray(s): Shoulder, AP / TRUE AP / AXILLARY left PERIPHERAL IV DATA: Not applicable SIGNED BY: RT Karlie(R) January 20, 2023 2:21 PM documented in this encounter [facility] 01-20-2023 History of Presen t illness Narrative Images from the original note were not included. Subjective HPI HPI Sharita Traore is a 72 year old female who presents today for CC of left arm/shoulder pain, no known injury. This started 1 day ago. Has tried otc medication for relief. Symptoms are worsened by rom. Risk factors none. .Patient presents with: Pain: Left arm, elbow into shoulder, unable to lift x 1 day PAST MEDICAL HISTORY Diagnosis Date Colitis Dupuytren's contracture of left hand High cholesterol Lung nodule Dr. Da Silva Osteoporosis S/P colectomy Tobacco use disorder Trigger finger of right hand PAST SURGICAL HISTORY Procedure Laterality Date LIGATE FALLOPIAN TUBE PAST SURGICAL HISTORY OF 2016 colonoscopy PAST SURGICAL HISTORY OF 12/2016 total colectomy PAST SURGICAL HISTORY OF 01/2022 right trigger finger release-Dr. García ALLERGIES Lipitor [Atorvastatin] and Metronidazole MEDICATIONS rosuvastatin (CRESTOR) 20 mg tablet Take 1 tablet by mouth daily at bedtime. Zinc Acetate, Oral, 50 mg (zinc) cap Take 1 capsule by mouth every other day. calcium carbonate (CALCIUM 600 ORAL) Take 1 tablet by mouth once daily. cholecalciferol (VITAMIN D-3) 5,000 unit tab Take 5,000 Units by mouth once daily. miconazole (ZEASORB AF) 2 % powder Apply 1 application to affected area as needed. FAMILY HISTORY Problem Relation Age of Onset Heart Mother heart attack COPD Father Cancer Sister 48 lung, +TOB Cancer Brother 56 throat, +TOB/[place] Cancer Maternal Grandmother 38 kidney Cancer Paternal Grandmother 71 ?? Colon Cancer Paternal Grandfather 61 Social History Tobacco Use Smoking status: Every Day Packs/day: 0.50 Years: 60.00 Additional pack years: 0.00 Total pack years: 30.00 Types: Cigarettes Smokeless tobacco: Never Substance Use Topics Alcohol use: No Drug use: No ROS Objective Blood pressure 147/86, pulse 74, temperature 36.9 C (98.5 F), resp. rate 18, weight 57.2 kg (126 lb), SpO2 99 %. Physical Exam Constitutional: General: She is not in acute distress. Appearance: She is not toxic-appearing or diaphoretic. HENT: Head: Normocephalic and atraumatic. Cardiovascular: Pulses: Radial pulses are 2+ on the left side. Pulmonary: Effort: Pulmonary effort is normal. No accessory muscle usage or respiratory distress. Musculoskeletal: Arms: Neurological: Mental Status: She is alert and oriented to person, place, and time. ASSESSMENT/PLAN: 1. Acute pain of left shoulder - ICD9: 719.41, ICD10: M25.512 -no bony abnormality noted on xray -sling supplied. -Rest, Ice, Compression, Elevation discussed Try steroids for pain -follow up with primary care if symptoms persist/worsen in 10-14 days - XR SHOULDER GENERAL 3V OR MORE AP/TRUE AP/OTHER LEFT IMPRESSION: Negative Dictated by : LIYAH SALAZAR MD - PREDNISONE 10 MG TABLET - CONSULT TO ORTHOPAEDICS Leroy Lawson APRN.KARLOS documented in this encounter [facility] 10-07-2022 Procedure note [facility] 09-28-2022 Miscellaneous Notes message sent. Jodie Durham MA ----- Message from Franklyn Jett MD sent at 09/26/2022 3:16 PM EDT ----- Negative mammogram. Repeat in 1 year. documented in this encounter [facility] 09-26-2022 Miscellaneous Notes September 27, 2022 PID: [id number] Sharita Traore [address] [place] [address] [address] [place] [id number] Dear Ms. Traore, We are pleased to inform you that the results of your recent breast imaging exam on 09/26/2022 are normal. Early detection of cancer is very important. We also understand recommendations regarding breast cancer screening are controversial. Please discuss with your primary care provider which strategy is best for you and whether a mammogram is right for you. Your imaging studies and report will be kept on file at [facility] as part of your permanent medical record and are available for your continuing care. Thank you for allowing us to help in meeting your health care needs. Sincerely, Dr. Sanchez Interpreting Radiologist [facility] (Normal over 40) documented in this encounter [facility] 09-26-2022 History of Presen t illness Narrative Radiology Service Progress Note PATIENT NAME: Sharita Traore DATE OF SERVICE: September 26, 2022 TIME: 9:57 AM PATIENT IDENTITY VERIFICATION COMPLETED USING TWO (2) IDENTIFIERS: Name and Date of confirmed by patient verbally. FALL SCREENING: Has the patient had 2 falls in the last year or 1 fall with injury or currently using an Ambulatory Assistive Device (Walker, Cane, Wheelchair, Crutches, etc.)? No PATIENT GENDER DATA: Female. status: : No status: NO. PATIENT RELEVANT IMPLANT DATA REVIEWED: Not Applicable RADIOLOGY DEPARTMENT: Mammography PERIPHERAL IV DATA: Not applicable SIGNED BY: RT Wai(R) September 26, 2022 9:57 AM documented in this encounter [facility] 09-20-2022 Miscellaneous Notes Patient notified. Alejandrina Mak RN 30 day rx sent. Call placed to patient. Patient is willing to trial Crestor but requests only a 30 day supply be sent to pharmacy d/t cost until she knows if she tolerates medication. Pharmacy is [facility]. Alejandrina Mak RN No, I would not have her restart her lipitor or pravastatin. Would recommend trial of Crestor which is another high intensity statin to see if she tolerates this better. If agreeable, will send rx to pharmacy. Patient calls to report that her bowels are pretty much back to normal. Her colostomy bag is no longer filling up with greenish yellow liquid 3-4 times daily. She is producing her normal bowel movement. Patient asking what she should do for cholesterol medication. Asking if she should resume the pravastatin 20 mg. Please review and advise, Alejandrina Mak RN documented in this encounter [facility] 09-16-2022 Miscellaneous Notes Pt notified and voiced understanding. Yoly Cuevas Ma Stop medication and call in 1 week with update. If symptoms do not improve, needs OV. Pt. started on Lipitor 6 days ago and now her colostomy bag fills up with greenish yellow liquid . She has to empty it 3 times a day. No pain but usually she has regular stool in her bag. Please advise. Call Pt. back with information. documented in this encounter [facility] 09-08-2022 History of Presen t illness Narrative Chief Complaint Patient presents with: Establish Care: Issue with area around stoma-yeast HPI Sharita Traore is a 72 year old female who presents here today for Above Complaints.. Previous PCP: Dr. Hoang with last OV about 6 months ago. Patient states that has history of colitis s/p [place] co[place] [address] Garcia. No longer following up with their office. Looks like they wanted her to follow up in 2018, but was not scheduled. States that she gets fungal infection around her stoma occasionally which she treats with Zeasorb Powder. Has been given lotrisone cream in the past as well. Smoking 1/2 pack per day for the last 60 years. Not ready to quit smoking. Has a lung nodule which is being monitored by Dr. Da Silva. Suspects she will get a call soon about repeat imaging from their office. History of osteoporosis with last DXA about 1 year ago. Discussed Prolia with Dr. Hoang, but did not want it due to side effects. Has been on Boniva in the past. Refusing rx today. Compliant with calcium and vitamin D supplement. Past medical history, appointments, medications, allergies reviewed. Previous Medical History PAST MEDICAL HISTORY Diagnosis Date Colitis Dupuytren's contracture of left hand High cholesterol Lung nodule Dr. Da Silva Osteoporosis S/P colectomy Tobacco use disorder Trigger finger of right hand Previous Surgical History PAST SURGICAL HISTORY Procedure Laterality Date PAST SURGICAL HISTORY OF colonoscopy Family History FAMILY HISTORY Problem Relation Age of Onset Heart Mother heart attack COPD Father Cancer Sister 48 lung, +TOB Cancer Brother 56 throat, +TOB/[place] Cancer Maternal Grandmother 38 kidney Cancer Paternal Grandmother 71 ?? Colon Cancer Paternal Grandfather 61 Patient Allergies ALLERGIES Allergen Reactions Metronidazole Contraindication-Medical Surgical Neuropathy Current Medications Current Outpatient Medications on File Prior to Visit Medication Sig Zinc Acetate, Oral, 50 mg (zinc) cap Take 1 capsule by mouth every other day. calcium carbonate (CALCIUM 600 ORAL) Take 1 tablet by mouth once daily. cholecalciferol (VITAMIN D-3) 5,000 unit tab Take 5,000 Units by mouth once daily. miconazole (ZEASORB AF) 2 % powder Apply 1 application to affected area as needed. pravastatin (PRAVACHOL) 20 mg tablet Take 20 mg by mouth once daily. benzonatate (TESSALON PERLES) 100 mg capsule Take 2 capsules by mouth three times daily as needed. ondansetron (ZOFRAN, HYDROCHLORIDE,) 4 mg tablet Take 1 tablet by mouth every 8 hours as needed for Nausea/Vomiting (for nausea.). (Patient not taking: Reported on 03/21/2018 ) CALCIUM CARBONATE/VITAMIN D3 (CALCIUM 600 + D ORAL) Take 1 tablet by mouth once daily. (Patient not taking: Reported on 09/08/2022) No current facility-administered medications on file prior to visit. Social History Social History Tobacco Use Smoking status: Every Day Types: Cigarettes Smokeless tobacco: Never Substance Use Topics Alcohol use: No Drug use: No Review of Symptoms REVIEW OF SYSTEMS GENERAL: No weight loss, malaise or fevers RESPIRATORY: Negative for cough, hemoptysis, wheezing, COPD, dyspnea or shortness of breath CARDIOVASCULAR: Negative for chest pain, leg swelling, hypertension, CHF or palpitations GI: No nausea, vomiting, or diarrhea SKIN: Negative for lesions, rash, and itching EXAM: BP 132/72 Pulse 65 Resp 16 Ht 167.8 cm (5' 6.06") Wt 59.3 kg (130 lb 12.8 oz) SpO2 95% BMI 21.07 kg/m General Appearance: Well appearing, alert, in no acute distress, well-hydrated, well nourished.. Skin: Skin color, texture, turgor normal, no suspicious rashes or lesions. Lungs: Lungs clear to auscultation. No wheezing, rhonchi, rales.. Heart: RRR without murmur, gallop, or rubs. No ectopy. Abdomen: Normal abdominal exam, Abdomen soft, non-tender. Bowel sounds normal. No masses, organomegaly. Opaque ostomy bag in placed without erythema or irritation. Extremities: No deformities, edema, skin discoloration, clubbing or cyanosis. Good capillary refill. Health Maintenance List HEPATITIS C SCREENING Never done DTAP,TDAP,TD(1 - Tdap) Never done MAMMOGRAM Never done LIPID SCREEN Never done COLORECTAL CANCER SCREENING Never done SHINGRIX VACCINE(1 of 2) Never done BONE DENSITY Never done PNEUMOCOCCAL: 65+(2 - PCV) due on 01/23/2017 DIABETES SCREEN due on 05/05/2020 COVID-19 VACCINE(3 - Booster for Pfizer series) due on 10/08/2020 ADVANCE DIRECTIVE DISCUSSION Never done DEPRESSION ASSESSMENT Never done INFLUENZA Completed ASSESSMENT/PLAN: 1. Ileostomy in place (HCC) - ICD9: V44.2, ICD10: Z93.2 (primary diagnosis) Ileostomy in place without rash or surrounding infection. Continue Zeasorb PRN. Red flags for re-assessment reviewed with patient in detail. 2. Ulcerative (chronic) pancolitis with other complication (HCC) - ICD9: 556.6, ICD10: K51.018 S/p colectomy. 3. Hyperlipidemia, mixed - ICD9: 272.2, ICD10: E78.2 - Control undetermined, due for labs - Continue current medications - Counseled on healthy diet and regular exercise - CBC + DIFF - COMP METABOLIC PANEL - LIPID PANEL, NONFASTING 4. Age-related osteoporosis without current pathological fracture - ICD9: 733.01, ICD10: M81.0 - Reviewed the need for Calcium and Vitamin D supplements and weight bearing exercise as tolerated - Refusing bisphosphonate today. Recheck DXA in 1 year. 5. Screening mammogram for breast cancer - ICD9: V76.12, ICD10: Z12.31 - Set up for mammogram, yearly mammogram recommended - GURU SCREENING 6. Tobacco use disorder - ICD9: 305.1, ICD10: F17.200 - Cessation encouraged. - Physiologic and physical aspects of tobacco addiction as well as strategies for quitting were discussed. - Counseling was given focusing on the harmful effects of this addiction especially given the patient's medical condition(s) which will be worsened because of the chemicals in tobacco. 7. Moderate COPD (chronic obstructive pulmonary disease) (HCC) - ICD9: 496, ICD10: J44.9 Patient denies cough, wheezing, SOB despite smoking history. Will f/u recommendations per Dr. Da Silva's office. Franklyn Jett MD documented in this encounter [facility] 01-03-2017 History of Past i llness Narrative Problem Noted Date Resolved Date Severe protein-calorie malnutrition 01/03/2017 09/12/2022 Ulcerative chronic pancolitis 01/02/2017 documented as of this encounter (statuses as of 09/12/2022) [facility]10-10-2017 History of Past illness Narrative* Problem Noted Date Resolved Date Severe protein-calorie malnutrition 01/03/2017 09/12/2022 Ulcerative chronic pancolitis 01/02/2017 documented as of this encounter (statuses as of 09/16/2022) [facility] History of Past illness Narrative* Problem Noted Date Resolved Date Severe protein-calorie malnutrition 01/03/2017 09/12/2022 Ulcerative chronic pancolitis 01/02/2017 documented as of this encounter (statuses as of 09/20/2022) [facility] History of Past illness Narrative* Problem Noted Date Resolved Date Severe protein-calorie malnutrition 01/03/2017 09/12/2022 Ulcerative chronic pancolitis 01/02/2017 documented as of this encounter (statuses as of 09/28/2022) [facility] History of Past illness Narrative* Problem Noted Date Resolved Date Severe protein-calorie malnutrition 01/03/2017 09/12/2022 Ulcerative chronic pancolitis 01/02/2017 documented as of this encounter (statuses as of 09/28/2022) [facility] History of Past illness Narrative* Problem Noted Date Diagnosed Date Resolved Date Severe protein-calorie malnutrition 01/03/2017 09/12/2022 Ulcerative chronic pancolitis 01/02/2017 01/26/2017 documented as of this encounter (statuses as of 01/20/2023) [facility] of Past illness Narrative* Problem Noted Date Diagnosed Date Resolved Date Severe protein-calorie malnutrition 01/03/2017 09/12/2022 Ulcerative chronic pancolitis 01/02/2017 01/26/2017 documented as of this encounter (statuses as of 01/28/2023) [facility] History of Past illness Narrative* Problem Noted Date Diagnosed Date Resolved Date Severe protein-calorie malnutrition 01/03/2017 09/12/2022 Ulcerative chronic pancolitis 01/02/2017 01/26/2017 documented as of this encounter (statuses as of 01/29/2023) [facility] of Past illness Narrative* Problem Noted Date Diagnosed Date Resolved Date Severe protein-calorie malnutrition 01/03/2017 09/12/2022 Ulcerative chronic pancolitis 01/02/2017 01/26/2017 documented as of this encounter (statuses as of 03/11/2023) [facility] History of Past illness Narrative* Problem Noted Date Diagnosed Date Resolved Date Severe protein-calorie malnutrition 01/03/2017 09/12/2022 Ulcerative chronic pancolitis 01/02/2017 01/26/2017 documented as of this encounter (statuses as of 03/17/2023) [facility] Diagnosis Onset Date Resolution Status Lung nodule, solitary acute Smoking greater than 40 pack years acute Moderate COPD (chronic obstructive pulmonary disease) chronic Colitis acute Tobacco abuse counseling acu te Hyperlipidemia chronic Osteoporosis chronic Trigger finger of right hand chronic [facility] Work Phone: Evaluation note* Diagnosis Onset Date Resolution Status Lung nodule, solitary acute Smoking greater than 40 pack years acute Moderate COPD (chronic obstructive pulmonary disease) chronic Colitis acute Tobacco abuse counseling acu te Hyperlipidemia chronic Osteoporosis chronic Trigger finger of right hand chronic Trigger finger, right ring finger acute [facility] Work Phone: Evaluation note* Diagnosis Onset Date Resolution Status Colitis acute Tobacco abuse counseling acu te Hyperlipidemia chronic Osteoporosis chronic Trigger finger of right hand chronic Trigger finger, right ring finger acute [facility] Work Phone: Evaluation note* Diagnosis Onset Date Resolution Status Trigger finger, right ring finger acute Tobacco abuse counseling acu te Osteoporosis chronic Sacroiliitis chronic [facility] Work Phone: evaluation note* Diagnosis Ileostomy in place (HCC)- Primary Ileostomy status Ulcerative (chronic) pancolitis with other complication (HCC) Hyperlipidemia, mixed Mixed hyperlipidemia Age-related osteoporosis without current pathological fracture Senile osteoporosis Screening mammogram for breast cancer Tobacco use disorder Moderate COPD (chronic obstructive pulmonary disease) (HCC) Chronic airway obstruction, not elsewhere classified documented in this encounter [facility] noteNo assessment information availableWProMedica [facility] Work Phone: Evaluation note* Diagnosis Onset Date Resolution Status Smoking greater than 40 pack years chronic Stage 1 mild COPD by GOLD classification [facility] Work Phone: evaluation note* Diagnosis Acute pain of left shoulder- Primary documented in this encounter [facility] note* Diagnosis Screening mammogram for breast cancer documented in this encounter [facility] note* Diagnosis Hyperlipidemia, mixed- Primary Mixed hyperlipidemia Moderate COPD (chronic obstructive pulmonary disease) (HCC) Chronic airway obstruction, not elsewhere classified Fall, initial encounter Tobacco use disorder Ileostomy in place (HCC) Ileostomy status Left upper arm pain Pain in limb [facility]* Diagnosis Moderate COPD (chronic obstructive pulmonary disease) (HCC)- Primary Chronic airway obstruction, not elsewhere classified Tobacco use disorder Dyslipidemia Other and unspecified hyperlipidemia Ulcerative chronic pancolitis without complications (HCC) [place] ulcerative (chronic) colitis Ileostomy in place (HCC) Ileostomy status Asymptomatic postmenopausal status S/P colectomy Other postprocedural status Lesion of skin of nose Age-related osteoporosis without current pathological fracture Senile osteoporosis Screening mammogram for breast cancer [facility]* Diagnosis Screening mammogram for breast cancer documented in this encounter [facility] note* Diagnosis Asymptomatic postmenopausal status Age-related osteoporosis without current pathological fracture Senile osteoporosis documented in this encounter [facility] note* Diagnosis Ileostomy in place (HCC)- Primary Ileostomy status Status post proctocolectomy documented in this encounter [facility] note* Diagnosis Hyperlipidemia, mixed- Primary Mixed hyperlipidemia Tobacco use disorder Ileostomy in place (HCC) Ileostomy status S/P colectomy Other postprocedural status Moderate COPD (chronic obstructive pulmonary disease) (HCC) Chronic airway obstruction, not elsewhere classified Age-related osteoporosis without current pathological fracture Senile osteoporosis [facility]* Diagnosis Acute pain of left shoulder- Primary Encounter for screening mammogram for malignant neoplasm of breast Other screening mammogram documented [facility]* Diagnosis Acute pain of left shoulder documented in this encounter [facility] note* Diagnosis Acute pain of left shoulder- Primary [facility]* Diagnosis Encounter for screening mammogram for malignant neoplasm of breast Other screening mammogram [facility] Work Phone: Hospital Discharge instructions Additional Instructions I wrote you a prescription for Carafate which might help with some of the discomfort in her esophagus. As we discussed if something becomes lodged in your esophagus and you are having trouble swallowing your secretions you return to the ER. I recommend follow-up with a GI doctor for upper endoscopy at some point.[facility] Work Phone: Reason for referral (narrative)* Diagnostic Procedure Only (Routine) - Pending Review Specialty Diagnoses / Procedures Referred By Tommy drake Referred To Contact [facility] Diagnoses Screening mammogram for breast cancer Procedures GURU SCREENING SCREENING MAMMOGRAPHY BI 2-VIEW BREAST INC Franklyn Oswald MD [address] [place] [address] [facility] [address] [address] Referral ID Status Reason Start Date Expiration Date Visits Requested Visits Authorized [id number] Pending Review Auto-Generat ed Referral 09/08/2022 10/08/2023 1 1 [facility] for referral (narrative)* Diagnostic Procedure Only (Routine) - Closed Specialty Diagnoses / Procedures Referred By Tommy drake Referred To Contact [facility] Diagnoses Screening mammogram for breast cancer Procedures GURU SCREENING SCREENING MAMMOGRAPHY BI 2-VIEW BREAST INC Franklyn Oswald MD [address] [place] [address] [facility] [address] [place] [address] Referral ID Status Reason Start Date Expiration Date V isits Requested Visits Authorized [id number] Closed Auto-Generate d Referral 09/08/2022 10/08/2023 1 1 [facility] for visit Narrative* Diagnostic Procedure Only (Routine) - Closed Specialty Diagnoses / Procedures Referred By Contac t Referred To Contact [facility] Diagnoses Screening mammogram for breast cancer Procedures GURU SCREENING SCREENING MAMMOGRAPHY BI 2-VIEW BREAST INC Franklyn Oswald MD [address] [place] [address] [facility] Imaging [address] [place] [address] Referral ID Status Reason Start Date Expiration Date V isits Requested Visits Authorized [id number] Closed Auto-Generate d Referral 09/08/2022 10/08/2023 1 1 [facility] for visit Narrative* Diagnostic Procedure Only (Routine) - Closed Specialty Diagnoses / Procedures Referred By Contac t Referred To Contact [facility] Diagnoses Screening mammogram for breast cancer Procedures GURU SCREENING SCREENING MAMMOGRAPHY BI 2-VIEW BREAST INC Franklyn Oswald MD [address] [place] [address] [facility] Imaging [address] [place] [address] Referral ID Status Reason Start Date Expiration Date V isits Requested Visits Authorized [id number] Closed Auto-Generate d Referral 09/11/2023 10/10/2024 1 1 [facility] for visit Narrative* Diagnostic Procedure Only (Routine) - Closed Specialty Diagnoses / Procedures Referred By Contac t Referred To Contact XR IMAGING Diagnoses Asymptomatic postmenopausal status Age-related osteoporosis without current pathological fracture Procedures DXA-AXIAL SKELETON Franklyn Jett MD [address] [place] [address] [place] [address] Referral ID Status Reason Start Date Expiration Date V isits Requested Visits Authorized [id number] Closed Auto-Generate d Referral 09/11/2023 10/10/2024 1 1 [facility] for visit Narrative* Diagnostic Procedure Only (Urgent) - Closed Specialty Diagnoses / Procedures Referred By Contac t Referred To Contact XR IMAGING Diagnoses Acute pain of left shoulder Procedures XR SHOULDER GENERAL 3V OR MORE AP/TRUE AP/OTHER LEFT RADEX SHOULDER COMPLETE MINIMUM 2 VIEWS Leroy Lawson APRN.CHANNEL MACHINE OPERATOR [address] [place] [address] [place] [address] Referral ID Status Reason Start Date Expiration Date V isits Requested Visits Authorized [id number] Closed Auto-Generate d Referral 01/20/2023 02/19/2024 1 1 [facility] for visit Narrative* Diagnostic Procedure Only (Routine) - Closed Specialty Diagnoses / Procedures Referred By Contac t Referred To Contact XR IMAGING Diagnoses Acute pain of left shoulder Procedures XR SHOULDER GENERAL 3V OR MORE AP/TRUE AP/OTHER LEFT RADEX SHOULDER COMPLETE MINIMUM 2 VIEWS Mckenzie Santiago, FILLER IN.CHANNEL MACHINE OPERATOR [address] [place] [address] Phone: tel: fax: [place] [address] Referral ID Status Reason Start Date Expiration Date V isits Requested Visits Authorized [id number] Closed Auto-Generate d Referral 09/06/2024 10/06/2025 1 1 [facility] for visit Narrative* Diagnostic Procedure Only (Routine) - Closed Specialty Diagnoses / Procedures Referred By Contac t Referred To Contact [facility] Diagnoses Encounter for screening mammogram for malignant neoplasm of breast Procedures GURU SCREENING SCREENING MAMMOGRAPHY BI 2-VIEW BREAST INC CAD PodlogMckenzie quick, FILLER IN.CHANNEL MACHINE OPERATOR [address] [place] [address] Phone: tel: fax: [facility] [address] [place] [address] Referral ID Status Reason Start Date Expiration Date V isits Requested Visits Authorized [id number] Closed Auto-Generate d Referral 09/06/2024 10/06/2025 1 1 [facility] Summary Purpose Family History No Family History Records Found Relationship Condition Age at Onset Recorded Date/T royer father Chronic obstructive pulmonary disease Unk nown mother Myocardial infarction Unknown sister Malignant neoplasm Unknown brother Malignant neoplasm Unknown Advance Directives No Advanced Directives Records Found Advance Directive Response Recorded Date/ Time Living Will No January 07 4:28pm Power of Technical Services Consultant No January 07, 2017 4:28pm Documents on File Type Date Recorded Patient Woodworking Bench Carpenter Expl anation Advance Directive(s) 12/21/2016 11:40 AM Documents on File Type Date Recorded Patient Woodworking Bench Carpenter Expl anation Advance Directive(s) 12/21/2016 11:40 AM Advance Directive Response Recorded Date/ Time Living Will No February 08, 022 9:19am Power of Technical Services Consultant No February 08, 2022 9:19am Advance Directive Response Recorded Date/ Time Living Will No January 11 3:24pm Power of Technical Services Consultant No January 11, 2023 3:24pm Chief Complaint and Reason for Visit Chief Complaint Dyspnea, unspecified Dyspnea, unspecified Dyspnea, unspecified Dyspnea, unspecified 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 CARE- QUESTIONARE AND CONSENT FORM Right hand SCREENING, OSTEOPOROSIS ABNORMAL MAMM Reason for Visit Lung nodule, solitar y Smoking greater than 40 pack years Moderate COPD (chronic obstructive pulmonary disease) Colitis Tobacco abuse counseling Hyperlipidemia Osteoporosis Trigger finger of right hand Trigger finger, right ring finger Chief Complaint PRODUCTION ASSEMBLER, EST. CARE- QUEST IONARE AND CONSENT FORM Right hand SCREENING, OSTEOPOROSIS ABNORMAL MAMM LUNG NODULE Reason for Visit Colitis Tobacco abuse counseling Hyperlipidemia Osteoporosis Trigger finger of right hand Trigger finger, right ring finger Chief Complaint Right hand SCREENING, OSTEOPOROSIS ABNORMAL MAMM LUNG NODULE follow up Reason for Visit Trigger finger, righ t ring finger Tobacco abuse counseling Osteoporosis Sacroiliitis Chief Complaint COPD COPD Chief Complaint COPD COPD NICOTINE DEPENDENCE 6 m fu FORIEGN BODY Reason for Visit Smoking greater than 40 pack years Stage 1 mild COPD by GOLD classification Reason for Referral Specialty Diagnoses / Procedures Referred By Tommy t Referred To Contact Orthopedics Diagnoses Acute pain of left shoulder Procedures CONSULT TO ORTHOPAEDICS OFFICE/OUTPATIENT [facility] 60-74 MINUTES Leroy Lawson APRN.CHANNEL MACHINE OPERATOR [address] [place] [address] Referral ID Status Reason Start Date Expiration Date Visits Requested Visits Authorized [id number] Authorized PCP Requested Referral 3 01/20/2024 1 1 Specialty Diagnoses / Procedures Referred By Contac t Referred To Contact XR IMAGING Diagnoses Acute pain of left shoulder Procedures XR SHOULDER GENERAL 3V OR MORE AP/TRUE AP/OTHER LEFT RADEX SHOULDER COMPLETE MINIMUM 2 VIEWS Leroy Lawson APRN.CNP [address] [place] [address] [place] [address] Referral ID Status Reason Start Date Expiration Date V isits Requested Visits Authorized [id number] Closed Auto-Generate d Referral 01/20/2023 02/19/2024 1 1 Specialty Diagnoses / Procedures Referred By Contac t Referred To Contact Gastroenterology Diagnoses Ulcerative chronic pancolitis without complications (HCC) Ileostomy in place (HCC) S/P colectomy Procedures CONSULT TO GASTROENTEROLOGY OFFICE/OUTPATIENT [facility] 60 MINUTES Franklyn Jett MD [address] [place] [address] Referral ID Status Reason Start Date Expiration Date Visits Requested Visits Authorized [id number] Authorized PCP Requested Referral 09/11/2023 09/10/2024 1 1 Specialty Diagnoses / Procedures Referred By Contac t Referred To Contact [facility] Diagnoses Screening mammogram for breast cancer Procedures GURU SCREENING SCREENING MAMMOGRAPHY BI 2-VIEW BREAST INC CAD Franklyn Jett MD [address] [place] [address] [facility] Imaging [address] [place] [address] Referral ID Status Reason Start Date Expiration Date Visits Requested Visits Authorized [id number] Authorized Auto-Generat ed Referral 09/11/2023 10/10/2024 1 1 Specialty Diagnoses / Procedures Referred By Contac t Referred To Contact XR IMAGING Diagnoses Asymptomatic postmenopausal status Age-related osteoporosis without current pathological fracture Procedures DXA-AXIAL SKELETON Franklyn Jett MD [address] [place] [address] [place] [address] Referral ID Status Reason Start Date Expiration Date Visits Requested Visits Authorized [id number] Authorized Auto-Generat ed Referral 09/11/2023 10/10/2024 1 1 Additional Source Comments INFORMATION SOURCE (unrecogn ized section and content) DATE CREATED AUTHOR 12/28/2020 Kyrenato Ceronsebastián [facility] DATE CREATED AUTHOR AUTHOR'S ORGANIZ ATION 01/24/2021 [facility] DATE CREATED AUTHOR AUTHOR'S ORGANIZ ATION 12/15/2023 [facility] DATE CREATED AUTHOR AUTHOR'S ORGANIZ ATION 10/17/2024 [facility] Ramirez Goals (unrecognized section and content) Goals may be documented in a n alternate sectionGoals may be documented in an alternate sectionGoals may be documented in an alternate sectionGoals may be documented in an alternate sectionGoals may be documented in an alternate sectionGoals may be documented in an alternate section Source Comments (unrecognize d section and content) In the event this informatio n is protected by the Federal Confidentiality of Alcohol and Drug Abuse Patient Records regulations: The Federal rules restrict any use of the information to criminally investigate or prosecute any alcohol or drug abuse patient.[facility] the event this information is protected by the Federal Confidentiality of Alcohol and Drug Abuse Patient Records regulations: The Federal rules restrict any use of the information to criminally investigate or prosecute any alcohol or drug abuse patient.[facility] the event this information is protected by the Federal Confidentiality of Alcohol and Drug Abuse Patient Records regulations: The Federal rules restrict any use of the information to criminally investigate or prosecute any alcohol or drug abuse patient.[facility] the event this information is protected by the Federal Confidentiality of Alcohol and Drug Abuse Patient Records regulations: The Federal rules restrict any use of the information to criminally investigate or prosecute any alcohol or drug abuse patient.[facility] the event this information is protected by the Federal Confidentiality of Alcohol and Drug Abuse Patient Records regulations: The Federal rules restrict any use of the information to criminally investigate or prosecute any alcohol or drug abuse patient.[facility] the event this information is protected by the Federal Confidentiality of Alcohol and Drug Abuse Patient Records regulations: The Federal rules restrict any use of the information to criminally investigate or prosecute any alcohol or drug abuse patient.[facility] the event this information is protected by the Federal Confidentiality of Alcohol and Drug Abuse Patient Records regulations: The Federal rules restrict any use of the information to criminally investigate or prosecute any alcohol or drug abuse patient.[facility] the event this information is protected by the Federal Confidentiality of Alcohol and Drug Abuse Patient Records regulations: The Federal rules restrict any use of the information to criminally investigate or prosecute any alcohol or drug abuse patient.[facility] the event this information is protected by the Federal Confidentiality of Alcohol and Drug Abuse Patient Records regulations: The Federal rules restrict any use of the information to criminally investigate or prosecute any alcohol or drug abuse patient.[facility] the event this information is protected by the Federal Confidentiality of Alcohol and Drug Abuse Patient Records regulations: The Federal rules restrict any use of the information to criminally investigate or prosecute any alcohol or drug abuse patient.[facility] the event this information is protected by the Federal Confidentiality of Alcohol and Drug Abuse Patient Records regulations: The Federal rules restrict any use of the information to criminally investigate or prosecute any alcohol or drug abuse patient.[facility] the event this information is protected by the Federal Confidentiality of Alcohol and Drug Abuse Patient Records regulations: The Federal rules restrict any use of the information to criminally investigate or prosecute any alcohol or drug abuse patient.[facility] the event this information is protected by the Federal Confidentiality of Alcohol and Drug Abuse Patient Records regulations: The Federal rules restrict any use of the information to criminally investigate or prosecute any alcohol or drug abuse patient.[facility] Hospital[facility] the event this information is protected by the Federal Confidentiality of Alcohol and Drug Abuse Patient Records regulations: The Federal rules restrict any use of the information to criminally investigate or prosecute any alcohol or drug abuse patient.[facility] the event this information is protected by the Federal Confidentiality of Alcohol and Drug Abuse Patient Records regulations: The Federal rules restrict any use of the information to criminally investigate or prosecute any alcohol or drug abuse patient.[facility] the event this information is protected by the Federal Confidentiality of Alcohol and Drug Abuse Patient Records regulations: The Federal rules restrict any use of the information to criminally investigate or prosecute any alcohol or drug abuse patient.[facility] the event this information is protected by the Federal Confidentiality of Alcohol and Drug Abuse Patient Records regulations: The Federal rules restrict any use of the information to criminally investigate or prosecute any alcohol or drug abuse patient.[facility] the event this information is protected by the Federal Confidentiality of Alcohol and Drug Abuse Patient Records regulations: The Federal rules restrict any use of the information to criminally investigate or prosecute any alcohol or drug abuse patient.[facility] HospitalIn the event this information is protected by the Federal Confidentiality of Alcohol and Drug Abuse Patient Records regulations: The Federal rules restrict any use of the information to criminally investigate or prosecute any alcohol or drug abuse patient.[facility] HospitalIn the event this information is protected by the Federal Confidentiality of Alcohol and Drug Abuse Patient Records regulations: The Federal rules restrict any use of the information to criminally investigate or prosecute any alcohol or drug abuse patient.[facility]In the event this information is protected by the Federal Confidentiality of Alcohol and Drug Abuse Patient Records regulations: The Federal rules restrict any use of the information to criminally investigate or prosecute any alcohol or drug abuse patient.[facility] HospitalIn the event this information is protected by the Federal Confidentiality of Alcohol and Drug Abuse Patient Records regulations: The Federal rules restrict any use of the information to criminally investigate or prosecute any alcohol or drug abuse patient.[facility] HospitalIn the event this information is protected by the Federal Confidentiality of Alcohol and Drug Abuse Patient Records regulations: The Federal rules restrict any use of the information to criminally investigate or prosecute any alcohol or drug abuse patient.[facility] HospitalIn the event this information is protected by the Federal Confidentiality of Alcohol and Drug Abuse Patient Records regulations: The Federal rules restrict any use of the information to criminally investigate or prosecute any alcohol or drug abuse patient.[facility] HospitalIn the event this information is protected by the Federal Confidentiality of Alcohol and Drug Abuse Patient Records regulations: The Federal rules restrict any use of the information to criminally investigate or prosecute any alcohol or drug abuse patient.[facility] HospitalIn the event this information is protected by the Federal Confidentiality of Alcohol and Drug Abuse Patient Records regulations: The Federal rules restrict any use of the information to criminally investigate or prosecute any alcohol or drug abuse patient.[facility] HospitalIn the event this information is protected by the Federal Confidentiality of Alcohol and Drug Abuse Patient Records regulations: The Federal rules restrict any use of the information to criminally investigate or prosecute any alcohol or drug abuse patient.[facility] HospitalIn the event this information is protected by the Federal Confidentiality of Alcohol and Drug Abuse Patient Records regulations: The Federal rules restrict any use of the information to criminally investigate or prosecute any alcohol or drug abuse patient.[facility] HospitalIn the event this information is protected by the Federal Confidentiality of Alcohol and Drug Abuse Patient Records regulations: The Federal rules restrict any use of the information to criminally investigate or prosecute any alcohol or drug abuse patient.[facility] Reason for Visit (unrecogniz ed section and content) Reason Comments Establish Care Issue with area arou nd stoma-yeast Reason Comments Medication Problem Reason Comments Patient Update Reason Comments Results Reason Comments Pain Left arm, elbow into shoulder, unable to lift x 1 day Reason Comments F/U 6 months Patient fell this . Tripped over something in a parking lot. Fell to concrete and hit knees and face. 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) S/P colectomy Procedures CONSULT TO GASTROENTEROLOGY OFFICE/OUTPATIENT NEW HIGH MDM 60 MINUTES Franklyn Jett MD [address] [place] [address] Referral ID Status Reason Start Date Expiration Date V isits Requested Visits Authorized [id number] Closed PCP Requested Referral 09/11/2023 09/10/2024 1 1 Reason Onset Date Comments Refill Request 03/05/2024 Reason Comments F/U 6 months Reason Onset Date Comments Population Health Navigation Outreach 07/08/2024 Guillermo/Workbench/ACO Reason Onset Date Comments Population Health Navigation Outreach 08/08/2024 ACO, High Risk Reason Comments Arm Pain Left arm pain x2 wee ks after heavy lifting Reason Onset Date Comments Population Health Navigation Outreach 09/17/2024 Guillermo/Workbench/ACO Reason Comments Results xray from 09/06/24 Care Teams (unrecognized sec tion and content) Corrective Therapy Aide Teacher Relationship Specialty Start Date End Date Franklyn Jett MD [address] [place], [place] [id number] PCP - General Family Medicine 09/08/22 Corrective Therapy Aide Teacher Relationship Specialty Start Date End Date Franklyn Jett MD [address] [place], [place] [id number] PCP - General Family Medicine 09/08/22 Corrective Therapy Aide Teacher Relationship Specialty Start Date End Date Franklyn Jett MD [address] [place], [place] [id number] PCP - General Family Medicine 09/08/22 Corrective Therapy Aide Teacher Relationship Specialty Start Date End Date Franklyn Jett MD [address] [place], [place] [id number] PCP - General Family Medicine 09/08/22 Corrective Therapy Aide Teacher Relationship Specialty Start Date End Date Franklyn Jett MD [address] [place], [place] [address] PCP - General Family Medicine 09/08/22 Team Status: Active Member Role Status Dates Keena Presley PA, PA-C Family Provider Active Dr. Emily Hoang MD Primary Care Provider Active Team Status: Active Member Role Status Dates Dr. Emily Hoang MD Primary Care Provider Active Dr. Eran Da Silva MD Referring Provider, Other Provid er Active Dr. Azael Andrade DO Attending Provider Active Team Status: Inactive Member Role Status Dates Dr. Emily Hoang MD Primary Care Provider Active Dr. Eran Da Silva MD Attending Provider, Referring Pr ovider Active Team Status: Active Member Role Status Dates Keena Presley PA, PA-C Family Provider Active Dr. Doyle Jett MD Primary Care Provider Acti ve Team Status: Inactive Member Role Status Dates Dr. Emily Hoang MD Primary Care Provider, Refer ring Provider Active Pia Banuelos PRODUCTION ASSEMBLER, PRODUCTION ASSEMBLER-C Attending Provider Active Team Status: Inactive Member Role Status Dates Dr. Emily Hoang MD Primary Care Provider Active Pia Banuelos PRODUCTION ASSEMBLER, PRODUCTION ASSEMBLER-C Attending Provider, Referrin g Provider Active Team Status: Inactive Member Role Status Dates Dr. Doyle Jett MD Primary Care Provider Acti ve Dr. Sean Henry DO Emergency Provider Active Corrective Therapy Aide Teacher Relationship Specialty Start Date End Date Franklyn Jett MD [address] [place] [address] PCP - General Family Medicine 09/08/22 Corrective Therapy Aide Teacher Relationship Specialty Start Date End Date Franklyn Jett MD [address] [place], [place] [id number] PCP - General Family Medicine 09/08/22 Corrective Therapy Aide Teacher Relationship Specialty Start Date End Date Franklyn Jett MD [address] [place], [place] [id number] PCP - General Family Medicine 09/08/22 Corrective Therapy Aide Teacher Relationship Specialty Start Date End Date Franklyn Jett MD [address] [facility] [place] [address] PCP - General Family Medicine 09/08/22 Corrective Therapy Aide Teacher Relationship Specialty Start Date End Date Franklyn Jett MD [address] [facility] [place] [address] PCP - General Family Medicine 09/08/22 Corrective Therapy Aide Teacher Relationship Specialty Start Date End Date Franklyn Jett MD [address] [facility] [place] [address] PCP - General Family Medicine 09/08/22 Corrective Therapy Aide Teacher Relationship Specialty Start Date End Date Franklyn Jett MD [address] [facility] [place] [address] PCP - General Family Medicine 09/08/22 Corrective Therapy Aide Teacher Relationship Specialty Start Date End Date Franklyn Jett MD [address] [facility] [place] [address] PCP - General Family Medicine 09/08/22 Corrective Therapy Aide Teacher Relationship Specialty Start Date End Date Franklyn Jett MD [address] [facility] [place] [address] PCP - General Family Medicine 09/08/22 Corrective Therapy Aide Teacher Relationship Specialty Start Date End Date Franklyn Jett MD [address] [facility] [place] [address] PCP - General Family Medicine 09/08/22 Corrective Therapy Aide Teacher Relationship Specialty Start Date End Date Franklyn Jett MD [address] [facility] [place] [address] PCP - General Family Medicine 09/08/22 Corrective Therapy Aide Teacher Relationship Specialty Start Date End Date Franklyn Jett MD [address] [facility] [place] [address] PCP - General Family Medicine 09/08/22 Corrective Therapy Aide Teacher Relationship Specialty Start Date End Date Franklyn Jett MD [address] [place] [address] PCP - General Family Medicine 09/08/22 Corrective Therapy Aide Teacher Relationship Specialty Start Date End Date Franklyn Jett MD [address] [place] [address] PCP - General Family Medicine 09/08/22 Podlogar, Mckenzie, FILLER IN.CHANNEL MACHINE OPERATOR [address] [place] [address] Heavy Lift Rigger Family Medicine 03/02/24 Corrective Therapy Aide Teacher Relationship Specialty Start Date End Date Franklyn Jett MD [address] [place] [address] PCP - General Family Medicine 09/08/22 Podlogar, Mckenzie, FILLER IN.CHANNEL MACHINE OPERATOR [address] [facility] [place] [address] Heavy Lift Rigger Family Medicine 03/02/24 Corrective Therapy Aide Teacher Relationship Specialty Start Date End Date Franklyn Jett MD [address] [facility] [place] [address] PCP - General Family Medicine 09/08/22 Podlogar, Mckenzie, FILLER IN.CHANNEL MACHINE OPERATOR [address] [place] [address] Heavy Lift Rigger Family Medicine 03/02/24 Audrey Cochran APRN.CHANNEL MACHINE OPERATOR [address] [place], [place] [id number] [phone] Lift Rigger Family Medicine 06/17/24 Corrective Therapy Aide Teacher Relationship Specialty Start Date End Date Franklyn Jett MD [address] [place] [address] PCP - General Family Medicine 09/08/22 Podlogar, Mckenzie FILLER IN.CHANNEL MACHINE OPERATOR [address] [place] [address] Heavy Lift Rigger Family Medicine 03/02/24 Audrey Cochran APRN.CHANNEL MACHINE OPERATOR [address] [place] [address] [facility] 06/17/24 Corrective Therapy Aide Teacher Relationship Specialty Start Date End Date Franklyn Jett MD [address] [place] [address] PCP - General Family Medicine 09/08/22 PodlogarMckenzie, FILLER IN.CHANNEL MACHINE OPERATOR [address] [place] [address] Heavy Lift Rigger Family Medicine 03/02/24 Audrey Cochran APRN.CHANNEL MACHINE OPERATOR [address] [place] [address] Heavy Lift Rigger Family Medicine 09/05/24 Corrective Therapy Aide Teacher Relationship Specialty Start Date End Date Franklyn Jett MD [address] [facility] [place] [address] PCP - General Family Medicine 09/08/22 PodlogarMckenzie APRN.CHANNEL MACHINE OPERATOR [address] [facility] [place] [address] Heavy Lift Rigger Family Medicine 03/02/24 Audrey Cochran APRN.CHANNEL MACHINE OPERATOR [address] [facility] [place] [address] Heavy Lift Rigger Family Medicine 09/05/24 Corrective Therapy Aide Teacher Relationship Specialty Start Date End Date Franklyn Jett MD [address] [facility] [place] [address] PCP - General Family Medicine 09/08/22 PodlogarMckenzie APRN.CHANNEL MACHINE OPERATOR [address] [facility] [place] [address] Heavy Lift Rigger Family Medicine 03/02/24 Audrey Cochran APRN.CHANNEL MACHINE OPERATOR [address] [facility] [place] [address] Heavy Lift Rigger Family Medicine 09/05/24 Corrective Therapy Aide Teacher Relationship Specialty Start Date End Date Franklyn Jett MD [address] [facility] [place] [address] PCP - General Family Medicine 09/08/22 SaralogMckenzie quick APRN.CHANNEL MACHINE OPERATOR [address] [facility] [place] [address] Heavy Lift Rigger Family Medicine 03/02/24 Audrey Cochran APRN.CHANNEL MACHINE OPERATOR [address] [place] [address] [facility] 09/05/24 Corrective Therapy Aide Teacher Relationship Specialty Start Date End Date Franklyn Jett MD [address] [place], [place] [address] PCP - General Family Medicine 09/08/22 PodlogarMckenzie APRN.CHANNEL MACHINE OPERATOR [address] [place] [address] [facility] 03/02/24 Audrey Cochran APRN.CHANNEL MACHINE OPERATOR [address] [place] [address] [facility] 09/05/24 Corrective Therapy Aide Teacher Relationship Specialty Start Date End Date Franklyn Jett MD [address] [place] [address] PCP - General Family Medicine 09/08/22 Mckenzie Santiago APRN.CHANNEL MACHINE OPERATOR [address] [place] [address] [facility] 03/02/24 Audrey Cochran APRN.CHANNEL MACHINE OPERATOR [address] [place] [address] [facility] 09/05/24 FOR RECORDS PERTAINING TO PATIENTS WHO ARE OR HAVE BEEN ENROLLED IN A CHEMICAL DEPENDENCY/SUBSTANCEABUSE PROGRAM, SOME INFORMATION MAY BE OMITTED. This clinical summary was aggregated from multiple sources. Caution should be exercised in using it in the provision of clinical care. This summary normalizes information from multiple sources, and as a consequence, information in this document may materially change the coding, format and clinical context of patient data. In addition, data may be omitted in some cases. CLINICAL DECISIONS SHOULD BE BASED ON THE PRIMARY CLINICAL RECORDS. [facility], [facility]. provides no warranty or guarantee of the accuracy or completeness of information in this document.
--- NOTE | 2024-10-19 00:11 | EDS_ITS ---
HPI History of Present Illness Chief Complaint: Lower Extremity Injury Informant: patient and family Narrative Narrative: Patient is a 74-year-old female with past medical history of hyperlipidemia and GERD. She states that roughly around 8 8:30 PM this evening her 1 dog was running throughout the house and ran into her causing her to fall. She denies striking her head or any loss of consciousness. She states she does not take blood thinners. She reports pain and swelling to her right ankle and foot. She states that she was able to get back up following the fall and was resting the injury and icing the area but has been persistent pain and swelling and therefore she has concern for fracture and comes in for evaluation. [facility] Medical History (Reviewed 12/13/23 @ 08:06 by Pia Banuelos FERRIS WHEEL ATTENDANT, FERRIS WHEEL ATTENDANT-C) Wears glasses Wears dentures Post-menopausal High cholesterol Back pain Injury of back Smoker History of stress test Sacroiliitis Abnormal mammogram of left breast Tobacco abuse counseling Trigger finger of right hand Midline cystocele Renal cyst Osteoporosis Hand pain Lumbar disc narrowing Colitis Hyperlipidemia Pulmonary nodule Hyperglycemia Chest pain Osteopenia GERD (gastroesophageal reflux disease) Situational depression Home Medications Medication Instructions Recorded Last Taken Type cholecalciferol (vitamin D3) 125 125 mcg PO DAILY 05/25 07/16 Unknown History mcg (5,000 unit) capsule ostomy supplies (Skin Prep Wipes) #50 ea 03/03/22 Unkn own Rx rosuvastatin 20 mg tablet 20 mg PO QHS 12/13/23 Unknow n History hydrocodone-acetaminophen 5-325mg 1 tab PO Q6H PRN anupam n 3 days #12 10/19/24 Unknown Rx 5mg-325mg tabs Allergy/AdvReac Type Severity Reaction Status Date / Time No Known Allergies Allergy Verified 10/18/24 22:58 Family History (Reviewed 12/13/23 @ 08:06 by Pia Banuelos FERRIS WHEEL ATTENDANT, FERRIS WHEEL ATTENDANT-C) Father COPD (chronic obstructive pulmonary disease) Mother Myocardial infarction Sister Cancer Lung Brother Cancer Throat Surgical History Hx of colonoscopy History of hand surgery History of rectal surgery S/P colectomy Social History (Reviewed 12/13/23 @ 08:06 by Pia Banuelos FERRIS WHEEL ATTENDANT, FERRIS WHEEL ATTENDANT-C) Smoking Status: Current every day smoker tobacco type: cigarettes alcohol intake: never ROS ROS ED Constitutional Constitutional ED: Denies chills or fever(s) Eyes Eyes: Denies blurry vision or change in vision ENT ENT ED: Denies sore throat Cardiovascular Cardiovascular: Reports other Details: Negative syncope ; Denies chest pain Respiratory/Chest Respiratory/Chest: Denies cough or dyspnea Gastrointestinal Gastrointestinal: Denies abdominal pain, diarrhea, nausea or vomiting Musculoskeletal Musculoskeletal: Reports other Details: Positive right foot and ankle pain ; Denies back pain or neck pain Integumentary Reports other Details: Positive bruising right ankle/foot ; Denies Abrasions Neurologic Neurologic: Denies headache(s) Hematologic/Lymphatic Hematologic/Lymphatic: Denies easy bleeding or easy bruising EXAM Physical Exam Const Vital Signs: 10/18/24 22:56 10/19/24 00:27 Temperature 97.1 F L 98.6 F Temperature Source Oral Pulse Rate 74 76 Respiratory Rate 16 16 Blood Pressure 137/69 H 134/78 H Blood Pressure Mean 91 96 Pulse Ox 100 99 Oxygen Delivery Method Room Air Positive well nourished and well developed General Appearance ED: well developed HEENT HEENT Narrative: Normocephalic atraumatic Eyes PERRL and EOMs intact bilaterally General Eye ED: Negative for scleral icterus Neck supple Neck Narrative: No bony deformity or step-off of the cervical spine no midline tenderness to palpation Resp normal respiratory effort and clear to auscultation bilaterally Cardio regular rate and regular rhythm Extremity Extremity Narrative: Pelvis is stable there is no shortening or external rotation of either lower extremity Right lower extremity is neurovascular intact; there is soft tissue swelling with ecchymosis along the lateral aspect of the right ankle and foot. There is pain with palpation just below the right lateral malleolus and on top of the right foot near the talus and cuneiform bones. There is no obvious bony deformity or joint effusion. Achilles tendon is intact and ankle ligaments are stable. No pain with palpation to the proximal tibia All compartments are soft and compressible going against compartment syndrome Remainder of the exam is normal Neuro oriented x3, CN's II-XII intact bilaterally and no sensory deficits noted Sensorium / Orientation: alert Psych mental status grossly normal Skin no rashes or lesions noted Skin Narrative: Soft tissue swelling and ecchymosis along the right ankle and foot as documented above Capillary refill is less than 3 seconds MDM MDM MDM Narrative Medical decision making narrative: Patient arrived to ER with stable vitals. She reported a mechanical fall and therefore I felt no need for cardiac or syncope workup. She did not strike her head or have loss of consciousness so there is low concern for a subarachnoid subdural hemorrhage and there is no need for head CT. With swelling and pain along the right ankle and foot there is concern for fracture versus contusion. By exam ligaments are stable going against a ligamentous tear. X-rays showed no sign of acute fracture or dislocation indicating contusion and hematoma. Patient will be given symptomatic care and is otherwise safe for discharge and can follow-up as an outpatient History & Record Review Discussion w/independent historian: Patient and Family Radiography Diagnostic Testing: Clinical Impression(s) from Imaging Studies Ankle X-Ray 10/18/24 23:18 IMPRESSION: No acute fracture or dislocation. Reading Location: [facility] Foot X-Ray 10/18/24 23:20 IMPRESSION: No acute fracture or dislocation. Reading Location: [facility] X-ray of the right ankle as interpreted by the emergency medicine physician reveals no acute fracture dislocation or joint effusion X-ray of the right foot as interpreted by the emergency medicine physician reveals no acute fracture or dislocation Discharge Plan Triage Chief Complaint: Lower Extremity Injury ED Provider: Kevin Sood Dx/Rx/DC Orders Clinical Impression: Contusion of foot, right, Hematoma of right foot, GERD (gastroesophageal reflux disease), Hyperlipidemia Instructions: ED Foot Contusion, ED Hematoma Prescriptions: New hydrocodone-acetaminophen 5-325 mg tablet 1 tab PO Q6H PRN (Reason: pain) 3 Days Qty: 12 0RF No Action cholecalciferol (vitamin D3) 125 mcg (5,000 unit) capsule 125 mcg PO DAILY (DME) Skin Prep Wipes Misc See Rx Instructions .Route Qty: 50 11RF Rx Instructions: As directed rosuvastatin 20 mg tablet 20 mg PO QHS Primary Care Provider: Doyle Jett Referrals: Doyle Jett MD [Primary Care Provider] - Activity Restrictions/Additional Instructions: Your x-rays did not show any obvious fracture or dislocation to your foot or ankle. Continue to ice the area to help reduce pain and speed healing. Use your crutches that you have at home to help with weightbearing/ambulation. Keep the Ramakrishna wrap over top of the area to reduce swelling and provide padding/protection. If there is no improvement after 1 week you may need repeat x-rays to make sure there was no missed fracture. Print Language: Vietnamese Disposition Disposition: Home, Self Care Discharge Date/Time: 10/19/24 00:29
[2024-10-19 00:27] VITALS: BP 134/78; PULSE 76; RESP 16; TEMP 37; O2SAT 99
== END 2024-10-19 00:29 | disposition home or self-care (01) ==
PROVIDERS: Emergency Provider Emergency Medicine; PCP Family Medicine; Visit Provider Emergency Medicine
DX: S90.31XA Contusion of right foot, initial encounter (principal); K21.9 Gastro-esophageal reflux disease without esophagitis; E78.00 Pure hypercholesterolemia, unspecified; W54.1XXA Struck by dog, initial encounter
CPT/HCPCS: 73610; 73630; 99282